=== PATIENT | female | born 1990 | race African-American/Black ===

== ENCOUNTER 2020-05-22 19:16 | Emergency (ER) | payer OTHER, MEDICAID, SELFPAY ==
[2020-05-22 19:21] VITALS: BP 148/108; PULSE 98; RESP 14; TEMP 36.1; O2SAT 100
--- NOTE | 2020-05-22 20:43 | ED.WOUNDLAC ---
HPI - Wound/Laceration General Chief Complaint: Wound/Laceration Stated Complaint: right big toe wound Time Seen by Provider: 05/22/20 19:28 Source: patient Mode of arrival: ambulatory Limitations: no limitations History of Present Illness HPI narrative: Patient is a 29 year old female who presents complaining of right great toe pain. She reports having pedicure last week and increased pain. She reports green drainage over the weekend. She denies all other complaints. She denies significant medical history. Related Data Home Medications Medication Instructions Recorded Confirmed nitrofurantoin monohyd/m-cryst 100 mg PO 05/22/20 Allergies Allergy/AdvReac Type Severity Reaction Status Date / Time No Known Allergies Allergy Mild Unverified 04/23/08 09:57 Review of Systems Review of Systems: Narrative: CONSTITUTIONAL: Denies fever, chills, or sweats. EYES: Denies visual changes, redness, or discharge. ENT: Denies rhinorrhea, congestion, sore throat, or otalgia. CARDIOVASCULAR: Denies chest pain, palpitations, or edema. RESPIRATORY: Denies cough or dyspnea. GASTROINTESTINAL: Denies abdominal pain, nausea, vomiting, or diarrhea. GENITOURINARY: Denies dysuria or hematuria. SKIN: Pain and swelling to right great toe MUSCULOSKELETAL: Denies back pain, joint pain, or myalgia. NEUROLOGIC: Denies headache, numbness, dizziness, or weakness. PSYCHIATRIC: Denies anxiety or depression. [facility] Past Medical History Medical History (Updated 05/22/20 @ 20:49 by COCO Horowitz) No significant past medical history Surgical History Surgical History (Updated 05/22/20 @ 20:49 by COCO Horowitz) No significant past surgical history Family History Family History (Updated 05/22/20 @ 20:49 by COCO Horowitz) Other No significant family history Social History Social History (Updated 05/22/20 @ 20:50 by COCO Horowitz) Smoking status: Never smoker Alcohol intake: never Substance use: never Living arrangements: with family Gender identity (if verbalized by the patient): Female Comments At the time of signature, I have reviewed and agree with nursing past medical, surgical, social, and family history unless otherwise noted. Please see nursing chart for further information. There is no relevant family history pertinent to the presenting complaint. Exam Narrative: Exam Narrative: GENERAL: Well-appearing, well-nourished, and in no acute distress. HEAD: Normocephalic, atraumatic. EYES: EOMI. No redness or drainage. Conjunctiva are normal. ENT: Mucous membranes pink and moist. CHEST: No respiratory distress. HEART: Regular rate and rhythm. EXTREMITIES: Normal range of motion. No edema. SKIN: Paronychia of the right great NEURO: No focal deficits. Alert and oriented x3. Gait steady. PSYCH: Normal affect. No signs of depression or anxiety. Course Vital Signs Vital signs: Vital Signs Temperature 36.1 C L 05/22/20 19:21 Pulse Rate 98 05/22/20 19:21 Respiratory Rate 14 05/22/20 19:21 Blood Pressure 148/108 H 05/22/20 19:21 Pulse Oximetry 100 05/22/20 19:21 Temperature 36.1 C L 05/22/20 19:21 Pulse Rate 98 05/22/20 19:21 Respiratory Rate 14 05/22/20 19:21 Blood Pressure 148/108 H 05/22/20 19:21 Pulse Oximetry 100 05/22/20 19:21 Reviewed-patient is informed that they may have pre-hypertension or hypertension based on a blood pressure reading. I recommend the patient call the primary care provider listed on their discharge instructions or a physician of their choice this week to arrange follow-up for further evaluation of possible pre-hypertension or hypertension. MDM - Wound/Laceration MDM Narrative Medical decision making narrative: Patient has paronychia of the right great toe, I&D completed with 18-gauge needle. Discussed topical antibiotics as patient is currently breast-feeding and soaking in warm water. Patient is stable for discharge wi
[2020-05-22 20:48] VITALS: BP 150/93; PULSE 98; RESP 18; O2SAT 100
== END 2020-05-22 20:58 | disposition home or self-care (01) ==
PROVIDERS: Emergency Provider Nurse Practitioner; PCP Obstetrics & Gynecology
DX: L03.031 Cellulitis of right toe (principal); R03.0 Elevated blood-pressure reading, without diagnosis of hypertension
CPT/HCPCS: 10060; 99283

== ENCOUNTER 2020-07-27 23:45 | Emergency (ER) | payer OTHER, MEDICAID, SELFPAY ==
[2020-07-27 23:47] VITALS: BP 137/91; PULSE 94; RESP 16; TEMP 36.5; O2SAT 100
--- NOTE | 2020-07-28 00:45 | ED.EAR ---
HPI - Ear Problem General Chief complaint: Ear Stated complaint: pain/blood in right ear Time Seen by Provider: 07/28/20 00:24 History of Present Illness HPI Narrative: Patient is a 29-year-old female who presents ER with ear pressure. Bilateral but right greater than left. Noticed some blood coming out of her ear on the right side tonight. No dizziness or tinnitus. 2 days ago she had had a lot of pressure where she could not hear in her right ear but that has improved. Symptoms worsened after getting off an airplane from [place]. Patient reports she has put some Q-tips in her ear. No history of cerumen impaction. Related Data Home Medications Medication Instructions Recorded Confirmed nitrofurantoin monohyd/m-cryst 100 mg PO 05/22/20 Allergies Allergy/AdvReac Type Severity Reaction Status Date / Time prednisone Allergy Swelling Verified 07/27/20 23:47 of Lip/Tongue/Throat Review of Systems Constitutional: Constitutional: Denies chills and Denies fever(s) ENT: Denies nasal congestion and Denies sore throat Comments: Ear pressure, blood from right ear canal Respiratory: Respiratory: Denies cough and Denies dyspnea PMFSH Past Medical History Medical History (Updated 07/28/20 @ 00:50 by Ben Anaya MD) No significant past medical history Surgical History Surgical History (Updated 05/22/20 @ 20:49 by COCO Horowitz) No significant past surgical history Family History Family History (Updated 05/22/20 @ 20:49 by COCO Horowitz) Other No significant family history Social History Social History (Updated 05/22/20 @ 20:50 by COCO Horowitz) Smoking status: Never smoker Alcohol intake: never Substance use: never Gender identity (if verbalized by the patient): Female Exam Narrative: Exam Narrative: GENERAL: Well-appearing, well-nourished, and in no acute distress. HEAD: Normocephalic, atraumatic. ENT: Mucous membranes moist. TMs normal bilaterally. Right ear canal over the anterior wall has an area where there was recent bleeding but no pustules or vesicles or active bleeding at this time. EXTREMITIES: Normal range of motion. No edema. NEURO: Alert and oriented x3. PSYCH: Normal mood and affect. Course Course Emergency Course: Recommend seasonal allergy medication to help with ear pressure as she may have some swelling for eustachian tubes not allowing for pressure to be released. Will give a dose of meclizine here to try to help as well. Vital Signs Vital signs: Vital Signs Temperature 97.7 F 07/27/20 23:47 Pulse Rate 94 07/27/20 23:47 Respiratory Rate 16 07/27/20 23:47 Blood Pressure 137/91 H 07/27/20 23:47 Pulse Oximetry 100 07/27/20 23:47 Temperature 97.7 F 07/27/20 23:47 Pulse Rate 94 07/27/20 23:47 Respiratory Rate 16 07/27/20 23:47 Blood Pressure 137/91 H 07/27/20 23:47 Pulse Oximetry 100 07/27/20 23:47 Medical Decision Making Vital Signs Vital Signs: Vital Signs Temperature 97.7 F 07/27/20 23:47 Pulse Rate 94 07/27/20 23:47 Respiratory Rate 16 07/27/20 23:47 Blood Pressure 137/91 H 07/27/20 23:47 Pulse Oximetry 100 07/27/20 23:47 Temperature 97.7 F 07/27/20 23:47 Pulse Rate 94 07/27/20 23:47 Respiratory Rate 16 07/27/20 23:47 Blood Pressure 137/91 H 07/27/20 23:47 Pulse Oximetry 100 07/27/20 23:47 Discharge Plan Discharge Clinical Impression: Dysfunction of eustachian tube Patient Disposition: Home, Self-Care Condition: Stable Additional Instructions: Take Zyrtec daily to help with inflammation that may be occurring around her eustachian tube. This is also helpful with seasonal allergies. Return to the ER if you have severe dizziness, you cannot keep down food or water, you develop fever over 100.4 ?F, or you have increased pain in your ear. Prescriptions: No Action nitrofurantoin monohyd/m-cryst 100 mg capsule 100 mg PO RF: 0
== END 2020-07-28 01:28 | disposition home or self-care (01) ==
PROVIDERS: Emergency Provider Emergency Medicine; PCP Obstetrics & Gynecology
DX: H69.93 Unspecified Eustachian tube disorder, bilateral (principal)
CPT/HCPCS: 99281

== ENCOUNTER 2021-06-05 20:09 | Emergency (ER) | payer OTHER, MEDICAID, SELFPAY ==
[2021-06-05] VITALS (25 sets, daily range): BP systolic 105–121; BP diastolic 75–104; PULSE 100; RESP 19; TEMP 36.6; O2SAT 98–100
--- NOTE | ~2021-06-05 | CT_ITS ---
EXAMINATION: CT abdomen pelvis w con DATE: 06/05/2021 22:30 INDICATION: Pelvic and back pain 3 days post D&C TECHNIQUE: Computed tomography (CT) of the abdomen and pelvis was performed with 100 mL Omnipaque-350 intravenous contrast. Automated exposure control and iterative reconstruction technique were employe d. The dose-length product was 427.97 mGy-cm. COMPARISON: None FINDINGS: Minimal dependent atelectasis in the left lower lobe. Heart size is normal. No pericardial or pleural effusion. Focal hepatic steatosis at the ligamentum teres. Gallbladder, spleen, pancreas, bilateral adrenal glands and kidneys are normal. Bladder is normal. Anteverted uterus is unremarkable 6 mm thic k endometrial complex. 1.7 cm peripherally enhancing likely corpus luteum cyst at the right ovary. Le ft adnexa is unremarkable. Bowels including the appendix are normal. No free intraperitoneal gas or f luid. No pathologically enlarged abdominal or pelvic lymphadenopathy. Bones are unremarkable. IMPRESSION: 1. No acute intra-abdominal/pelvic process. Reviewed, dictated and finalized at location [facility].
--- NOTE | 2021-06-05 20:46 | ED.ABDPAIN ---
HPI - Abdominal Pain General Chief Complaint: Abdominal Pain <Herber Ngo MD - Last Filed: 06/05/21 21:39> Stated Complaint: n/v, pelvic pain <Herber Ngo MD - Last Filed: 06/05/21 21:39> Time Seen by Provider: 06/05/21 20:45 <Herber Ngo MD - Last Filed: 06/05/21 21:39> Source: patient <Herber Ngo MD - Last Filed: 06/05/21 21:39> Mode of arrival: ambulatory <Herber Ngo MD - Last Filed: 06/05/21 21:39> Limitations: no limitations <Herber Ngo MD - Last Filed: 06/05/21 21:39> History of Present Illness HPI narrative: Patient is 30-year-old -[place] female status post D&C for 4 days ago at [facility], 6-week old . Patient is 8 para 6 2. Patient presents with pain and spasm at the pelvic floor started yesterday associated with nausea and vomiting at least 5 times so far. She denies any fever, chills, diarrhea, constipation, vaginal bleeding or discharge <Herber Ngo MD - Last Filed: 06/05/21 21:39> Related Data Home Medications: Home Medications Medication Instructions Recorded Confirmed ibuprofen 06/05/21 <Herber Ngo MD - Last Filed: 06/05/21 21:39> Allergies/Adverse Reactions: Allergies Allergy/AdvReac Type Severity Reaction Status Date / Time prednisone Allergy Swelling Verified 06/05/21 20:20 of Lip/Tongue/Throat <Herber Ngo MD - Last Filed: 06/05/21 21:39> Review of Systems Review of Systems: All systems reviewed & are unremarkable except as noted in HPI and below <Herber Ngo MD - Last Filed: 06/05/21 21:39> PMFSH Past Medical History Medical History: Medical History No significant past medical history <Herber Ngo MD - Last Filed: 06/05/21 21:39> Surgical History Surgical History: Surgical History No significant past surgical history <Herber Ngo MD - Last Filed: 06/05/21 21:39> Family History Family History: Family History Other No significant family history <Herber Ngo MD - Last Filed: 06/05/21 21:39> Social History Social History: Social History Smoking status: Never smoker Alcohol intake: never Substance use: never Gender identity (if verbalized by the patient): Female <Herber Ngo MD - Last Filed: 06/05/21 21:39> Exam Narrative: The patient is awake and alert, well oriented., at the bedside Memory functions were grossly normal. Cranial nerves: Pupils were reactive to light. Extraocular movements were intact. Face is symmetric. Tongue midline. Palate elevation was normal . Neck and shoulder shrugging was also normal. Motor l examination: There was no pronator drift. Strength was grossly 5/5 in all extremities. No focal motor deficits were noted. Sensations were also well preserved. Coordination and fine finger movements, [id number] did not reveal dysmetria. Examination of the gait was deferred. <Herber Ngo MD - Last Filed: 06/05/21 21:39> Course Course Emergency Course: Stable <Herber Ngo MD - Last Filed: 06/05/21 21:39> Reevaluation(s) Reevaluation #1: Received signout on the patient pending CT imaging. CT was clear unremarkable for acute process on reevaluation patient was resting comfortably sleeping easily awoken. Patient is follow-up with her [facility] team early next week patient is comfortable outpatient plan. <Gabriel Bray MD - Last Filed: 06/06/21 03:14> Date: 06/06/21 <Gabriel Bray MD - Last Filed: 06/06/21 03:14> Time: 00:15 <Gabriel Bray MD - Last Filed: 06/06/21 03:14> Vital Signs Vital signs: Vital Signs Temperature 36.6 C 06/05/21 20:16 Pulse Rate 100 06/05/21 20:16 Respiratory Rate 19 06/05/21 2
[2021-06-05] MEDS: SODIUM CHLORIDE 0.9% IV 1,000 ML 999 ML IV CONT (21:13)
[2021-06-05 21:21] LABS: Basophils Percent Auto 0.4 % (0.2-1.2); Eosinophils Absolute Auto 0.1 K/mm3 (0-0.3); Eosinophils Percent Auto 1.3 % (0-4.4); Hematocrit 36.1 % (37.0-47.0); Hemoglobin 11.5 g/dL (12.0-15.0); Immature Granulocyte Absolute 0.03 K/mm3 (0.00-0.031); Immature Granulocyte Percent A 0.5 % (0-0.5); Lymphocytes Absolute Auto 1.45 K/mm3 (0.9-3.2); Lymphocytes Percent Auto 26.1 % (18.3-44.2); Mean Corpuscular HGB Conc 31.9 g/dl (32-36); Mean Corpuscular Volume 91.2 fl (80-100); Mean Platelet Volume 9.7 fl (7.4-10.4); Monocytes Absolute Auto 0.4 K/mm3 (0.1-0.6); Monocytes Percent Auto 6.7 % (2.6-8.5); Neutrophils Absolute Auto 3.6 K/mm3 (1.3-6.7); Platelet Count Result 255 k/mm3 (150-375); Red Blood Count 3.96 M/mm3 (4.2-5.4); Red Cell Distribution Width 12.5 % (11.5-14.5); White Blood Count 5.6 K/mm3 (4.5-10.0)
[2021-06-05 21:39] LABS: Alanine Aminotransferase 13 U/L (4-35); Alkaline Phosphatase 81 U/L (38-126); Anion Gap 8 mmol/L (8-16); Aspartate Amino Transferase 24 U/L (14-36); Bilirubin,Total 0.6 mg/dL (0.2-1.3); Blood Urea Nitrogen 11 mg/dL (7-17); Calcium 7.9 mg/dL (8.4-10.2); Carbon Dioxide 23 mmol/L (22-30); Chloride 105 mmol/L (98-107); Estimated Glomerular Filt Rate > 60; Glucose 89 mg/dL (65-110); Lipase 120 U/L (23-300); Potassium 3.5 mmol/L (3.4-5.0); Sodium 136 mmol/L (137-145)
[2021-06-05] MEDS: MORPHINE SULFATE (*CRX) 4 MG/ML INJ IV PUSH (21:55)
[2021-06-05] MEDS: ONDANSETRON INJ 4 MG/2 ML VIAL IV PUSH ×2 (21:55)
[2021-06-06 00:31] VITALS: BP 100/73; PULSE 97; RESP 18; O2SAT 98
[2021-06-06 03:56] LABS: Pregnancy On Board Control Positive; Urine Pregnancy Test Positive
== END 2021-06-06 00:39 | disposition home or self-care (01) ==
PROVIDERS: Emergency Medicine; Emergency Provider Emergency Medicine; PCP Obstetrics & Gynecology
DX: R10.2 Pelvic and perineal pain (principal); Z98.890 Other specified postprocedural states
CPT/HCPCS: 36415; 74177; 80053; 81025; 83690; 85025; 96361; 96374; 96375; 99284; J2270; J2405; J7030; Q9967

== ENCOUNTER 2021-08-27 11:13 | Emergency (ER) | payer OTHER, MEDICAID, SELFPAY ==
--- NOTE | 2021-08-27 11:20 | ED.URI ---
HPI - URI/Sore Throat General Chief Complaint: Upper Respiratory Infection Stated Complaint: cough,sore throat Time Seen by Provider: 08/27/21 11:20 Source: patient Mode of arrival: ambulatory Limitations: no limitations History of Present Illness HPI Narrative: Ms. Lorenzana is a 31-year-old female patient presenting to the clinic today with complaints of cough and sore throat x1 day. She reports her 2 sons have been sick for approximately 5 to 6 days with cough, congestion, low-grade fever, and sore throat. Is concerned that she has gotten sick from them. Related Data Home Medications Medication Instructions Recorded Confirmed ibuprofen 600 mg tablet 06/05/21 Allergies Allergy/AdvReac Type Severity Reaction Status Date / Time prednisone Allergy Swelling Verified 06/05/21 20:20 of Lip/Tongue/Throat Review of Systems Review of Systems: Pertinent positives per HPI. Patient denies any fever, chills, rash, headache, visual changes, dizziness, shortness of breath, chest pain, palpitations, nausea, vomiting, diarrhea, constipation, abdominal pain, or any urinary issues. [facility] Past Medical History Medical History No significant past medical history Surgical History Surgical History No significant past surgical history Family History Family History Other No significant family history Social History Social History Smoking status: Never smoker Alcohol intake: never Substance use: never Gender identity (if verbalized by the patient): Female Comments At the time of my signature, I reviewed and agree with the nursing past medical, surgical, social, and family history. There is no relevant family history pertinent to the patient complaint. Exam Narrative: General: Well-developed, overweight, in no apparent distress Head: Normocephalic, atraumatic Eyes: Pupils equally round and reactive to light bilaterally, EOM intact, sclera and conjunctive clear, no discharge, lids normal Ears: TMs intact and clear, ear canals clear, no drainage, grossly hearing normal. Nose: Nares patent, clear nasal discharge, moderate postnasal drip inflammation, no sinus tenderness. Mouth: Oropharynx without lesions or masses, good dentition, MMM. Neck: Supple, trachea midline, no enlargement of anterior or posterior cervical nodes, no thyroid masses or goiter palpable. Cardio: Regular rate and rhythm, s1 and s2 normal, no murmur appreciated. Resp: Clear to auscultation bilaterally anteriorly and posteriorly, no rhonchi, rales, wheezing or rubs Course Course Emergency Course: Portions of this record may have been created with voice recognition software. Level of Care: Express Care Visit Vital Signs Vital signs: Vital signs reviewed MDM - URI/Sore Throat MDM Narrative Medical decision making narrative: At the time of visit patient is resting comfortably on the exam table. I suspect the patient has upper respiratory infection and discussed testing for COVID here in 2 days. Supportive measures were discussed with the patient she voiced understanding of discharge instructions. I will give a prescription for some Decadron to help with congestion and inflammation. Differential Diagnosis Differential diagnosis: Likely upper respiratory infection, sinusitis, viral infection, bronchitis, influenza, pharyngitis and other (COVID) Discharge Plan Discharge Clinical Impression: URI (upper respiratory infection) Qualifiers: URI type: unspecified viral URI Qualified Code(s): J06.9 - Acute upper respiratory infection, unspecified Patient Disposition: Home, Self-Care Condition: Stable Instructions: Antibiotic Form Additional Instructions: Take prescription medic
[2021-08-27 11:43] VITALS: BP 120/82; PULSE 106; RESP 16; TEMP 37.3; O2SAT 100
== END 2021-08-27 12:13 | disposition home or self-care (01) ==
PROVIDERS: Emergency Provider Nurse Practitioner Family; PCP Obstetrics & Gynecology
DX: J06.9 Acute upper respiratory infection, unspecified (principal)
CPT/HCPCS: 99213; G0463

== ENCOUNTER 2021-09-12 21:09 | Emergency (ER) | payer OTHER, MEDICAID, SELFPAY ==
--- NOTE | ~2021-09-12 | CT_ITS ---
EXAMINATION: CT abdomen pelvis wo con DATE: 09/12/2021 23:19 INDICATION: Right lower quadrant abdominal pain, right flank pain TECHNIQUE: Computed tomography (CT) of the abdomen and pelvis was performed without intravenous contr ast. Automated exposure control and iterative reconstruction technique were employed. Exam dose: 418 .09 mGy-cm total exam DLP. COMPARISON: 06/05/2021 CT abdomen pelvis with IV contrast material FINDINGS: The lung bases are clear. Normal heart size. No pericardial or pleural effusion. The liver, gallbladder, bile ducts, spleen, pancreas, pancreatic duct, and adrenal glands and kidneys are unremarkable, except for possible subtle punctate nonobstructing right renal calculus. No ureteral calculus or hydroureteronephrosis. The urinary bladder, uterus and adnexal areas are unre markable. Slight free fluid in the posterior cul-de-sac, which is likely physiologic. Normal appendix. No bowel obstruction or intraperitoneal free air. Small fat-containing umbilical hernia. Included skeletal structures are unremarkable. IMPRESSION: Very subtle pinpoint nonobstructing right renal calculus is suggested Normal appendix Reviewed, dictated and finalized at [facility]. Reviewed, dictated and finalized at location [facility]. IMPRESSION: Very subtle pinpoint nonobstructing right renal calculus is sugges keily Normal appendix
[2021-09-12 21:11] VITALS: BP 139/94; PULSE 90; RESP 16; TEMP 36.8; O2SAT 100
--- NOTE | 2021-09-12 21:34 | ED.FEMALEGU ---
HPI - Female Genitourinary General Chief complaint: Urogenital-Female Stated complaint: chills, urinary frequency, flank pain Time Seen by Provider: 09/12/21 21:16 History of Present Illness HPI Narrative: 31-year-old female presents to the emergency room for evaluation of right pelvic pain. Patient states the pain has been present all day today and is accompanied with occasional nausea. Last menstrual period was 2 weeks ago. Denies any vomiting diarrhea or constipation. Denies fever. States she has a mild dysuria. Also reports right lower Related Data Allergies Allergy/AdvReac Type Severity Reaction Status Date / Time prednisone Allergy Swelling Verified 08/27/21 18:22 of Lip/Tongue/Throat Review of Systems Review of Systems: CONSTITUTIONAL: Denies fever, chills, or sweats. EYES: Denies visual changes, redness, or discharge. ENT: Denies rhinorrhea, congestion, sore throat, or otalgia. CARDIOVASCULAR: Denies chest pain, palpitations, or edema. RESPIRATORY: Denies cough or dyspnea. GASTROINTESTINAL: Reports right pelvic pain GENITOURINARY: Denies dysuria or hematuria. SKIN: Denies rash or itching. MUSCULOSKELETAL: Reports back pain NEUROLOGIC: Denies headache, numbness, dizziness, or weakness. PSYCHIATRIC: Denies anxiety or depression. PMFSH Past Medical History Medical History No significant past medical history Surgical History Surgical History No significant past surgical history Family History Family History Other No significant family history Social History Social History Smoking status: Never smoker Alcohol intake: never Substance use: never Gender identity (if verbalized by the patient): Female Exam Narrative: GENERAL: Well-appearing, well-nourished, no physical limitations, and in no acute distress. HEAD: Normocephalic, atraumatic. EYES: Conjunctivae normal, PERRLA and EOMI. CHEST: Clear to auscultation. No respiratory distress. No wheezes rales or rhonchi. No tenderness. HEART: Regular rate and rhythm. No murmur heard. Normal peripheral pulses. ABDOMEN: Soft, right pelvic tenderness, nondistended, normal active bowel sounds. BACK: Right CVA tenderness EXTREMITIES: Normal range of motion. No edema. No clubbing or cyanosis SKIN: Warm, dry, no rash. No noted wounds NEURO: No focal deficits. Alert and oriented x3. MAEW. CN's II-XI intact bilaterally, normal gait PSYCH: Cooperative. Normal mood and affect. Course Vital Signs Vital signs: Vital Signs Temperature 36.8 C 09/12/21 21:11 Pulse Rate 90 09/12/21 21:11 Respiratory Rate 16 09/12/21 21:11 Blood Pressure 139/94 H 09/12/21 21:11 Pulse Oximetry 100 09/12/21 21:11 Oxygen Delivery Room Air 09/12/21 21:11 Temperature 36.8 C 09/12/21 21:11 Pulse Rate 90 09/12/21 21:11 Respiratory Rate 16 09/12/21 21:11 Blood Pressure 139/94 H 09/12/21 21:11 Pulse Oximetry 100 09/12/21 21:11 Oxygen Delivery Room Air 09/12/21 21:11 MDM - Female Genitourinary Lab Data Result diagrams: 09/12/21 21:50 09/12/21 21:50 Labs: Lab Results 09/12/21 09/12/21 09/12/21 Range/Units 21:41 21:50 21:50 WBC 7.3 (4.5-10.0) K/mm3 RBC 4.01 L (4.2-5.4) M/mm3 Hgb 11.5 L (12.0-15.0) g/dL Hct 35.8 L (37.0-47.0) % MCV 89.3 (80-100) fl MCH 28.7 (26-34) pg MCHC 32.1 (32-36) g/dl RDW 12.1 (11.5-14.5) % Plt Count 355 (150-375) k/mm3 MPV 9.9 (7.4-10.4) fl Immature Gran % (Auto) 0.4 (0-0.5) % Neut % (Auto) 53.5 (45.5-73.1) % Lymph % (Auto) 36.8 (18.3-44.2) % [place] % (Auto) 7.5 (2.6-8.5) % Eos % (Auto) 1.5 (0-4.4) % Baso % (Auto) 0.3 (0.2-1.2) % Lymph # (Auto) 2.69 (0.9-3.2) K/mm
[2021-09-12 21:57] LABS: Basophils Percent Auto 0.3 % (0.2-1.2); Eosinophils Absolute Auto 0.1 K/mm3 (0-0.3); Eosinophils Percent Auto 1.5 % (0-4.4); Hematocrit 35.8 % (37.0-47.0); Hemoglobin 11.5 g/dL (12.0-15.0); Immature Granulocyte Absolute 0.03 K/mm3 (0.00-0.031); Immature Granulocyte Percent A 0.4 % (0-0.5); Lymphocytes Absolute Auto 2.69 K/mm3 (0.9-3.2); Lymphocytes Percent Auto 36.8 % (18.3-44.2); Mean Corpuscular HGB Conc 32.1 g/dl (32-36); Mean Corpuscular Hemoglobin 28.7 pg (26-34); Mean Corpuscular Volume 89.3 fl (80-100); Mean Platelet Volume 9.9 fl (7.4-10.4); Monocytes Absolute Auto 0.6 K/mm3 (0.1-0.6); Monocytes Percent Auto 7.5 % (2.6-8.5); Neutrophils Absolute Auto 3.9 K/mm3 (1.3-6.7); Neutrophils Percent Auto 53.5 % (45.5-73.1); Platelet Count Result 355 k/mm3 (150-375); Red Blood Count 4.01 M/mm3 (4.2-5.4); Red Cell Distribution Width 12.1 % (11.5-14.5); White Blood Count 7.3 K/mm3 (4.5-10.0)
[2021-09-12 22:06] LABS: Anion Gap 13 mmol/L (8-16); Blood Urea Nitrogen 8 mg/dL (7-17); Calcium 9.3 mg/dL (8.4-10.2); Carbon Dioxide 23 mmol/L (22-30); Chloride 99 mmol/L (98-107); Estimated Glomerular Filt Rate > 60; Glucose 111 mg/dL (65-110); Potassium 3.6 mmol/L (3.4-5.0); Sodium 135 mmol/L (137-145)
[2021-09-12 22:08] LABS: Appearance Urine Clear (Clear); Bilirubin Urine Negative (Negative); Blood Urine Negative (Negative); Color Urine Yellow (Yellow); Glucose Urine UA Negative (Negative); Ketones Urine Negative (Negative); Leukocyte Esterase Ur Negative LEU/UL (Negative); Nitrate Urine Negative (Negative); Protein Urine Negative (Negative); Specific Grav Ur <= 1.005 (1.001-1.035); Urobilinogen Urine 0.2 mg/dL (<2.0); pH Urine 6.5 (5.0-9.0)
[2021-09-12 22:10] LABS: Add Urine Microscopic? NO
[2021-09-12] MEDS: ONDANSETRON INJ 4 MG/2 ML VIAL IV PUSH (22:24)
[2021-09-12] MEDS: SODIUM CHLORIDE 0.9% IV 1,000 ML 999 ML IV CONT (22:24)
--- NOTE | 2021-09-13 02:02 | PC.NURSE ---
Pt was going to leave AMA, but received verbal d/c instructions by EMANUEL Stover prior to leaving.
== END 2021-09-13 01:56 | disposition home or self-care (01) ==
PROVIDERS: Emergency Provider Nurse Practitioner Family; PCP Obstetrics & Gynecology
DX: N83.209 Unspecified ovarian cyst, unspecified side (principal)
CPT/HCPCS: 36415; 74176; 80048; 81003; 81025; 85025; 96361; 96374; 99284; J2405; J7030

== ENCOUNTER 2022-03-04 22:15 | Emergency (ER) | payer OTHER, MEDICAID, SELFPAY ==
--- NOTE | ~2022-03-04 | CT_ITS ---
CT Orbits Clinical Indication: Injury Technique: Contiguous axial scans were obtained through the orbits followed by coronal and sagittal r econstructions. Dose reduction technique was used on this scan by utilizing automated exposure contro l and iterative reconstruction technique. The dose-length product (DLP) was 140.83 mGy-cm. Findings: No fractures are identified. Minimal left maxillary sinus disease noted. The remaining visu alized paranasal sinuses are clear. Intraorbital soft tissues appear normal. Impression: No fracture or intraorbital abnormality identified. Reviewed, dictated and finalized at location . [employer] [employer] Impression: No fracture or intraorbital abnormality identified.
--- NOTE | ~2022-03-04 | CT_ITS ---
Non-contrast Head CT History: Head injury Technique: Axial non-contrast imaging of the brain was performed. Dose reduction technique was used on this scan by utilizing automated exposure control and iterative reconstruction technique. The dose -length product (DLP) was 605.33 mGy-cm. Findings: There is no evidence of intracranial hemorrhage, mass lesion, or acute infarct. Brain par enchyma appears normal. The ventricles and subarachnoid spaces are normal in size. The calvarium ap pears normal. The visualized paranasal sinuses and mastoid air cells are clear. Impression: No significant abnormality seen. Reviewed, dictated and finalized at [facility]. [employer] Impression: No significant abnormality seen.
[2022-03-04 22:18] VITALS: BP 112/72; PULSE 80; RESP 14; TEMP 36.4; O2SAT 100
--- NOTE | 2022-03-04 23:56 | ED.HEATRA ---
HPI - Head Injury General Chief complaint: Head Injury Stated complaint: head injury Time Seen by Provider: 03/04/22 23:56 Source: patient Mode of arrival: ambulatory Limitations: no limitations History of Present Illness HPI Narrative: 31-year-old otherwise healthy here with the complaints of right eye pain patient states that he had Border right eye loss of vision for seconds now complaining of pain and headache. She states that she gave the vision back is able to see kong BOYLE Complaint: head injury Onset (ago): hour(s) (3) Mechanism of Injury: other (Accidental) Place: home Loss of Consciousness: no Location of injury: other (Right orbit) Quality: dull Radiation: none Other Injuries: none Associated symptoms: denies other symptoms Related Data Allergies Allergy/AdvReac Type Severity Reaction Status Date / Time prednisone Allergy Swelling Verified 08/27/21 18:22 of Lip/Tongue/Throat Review of Systems Review of Systems: All systems reviewed & are unremarkable except as noted in HPI and below Constitutional: Constitutional: Reports no additional constitutional complaints Eyes: Eyes: Reports as per HPI ENT: Reports system reviewed and no additional complaints, except as documented Cardiovascular: Cardiovascular: Reports no additional cardiovascular complaints Respiratory: Respiratory: Reports no additional respiratory complaints Gastrointestinal: Gastrointestinal: Reports no additional gastrointestinal complaints Musculoskeletal: Musculoskeletal: Reports no additional musculoskeletal complaints PMFSH Past Medical History Medical History No significant past medical history Surgical History Surgical History No significant past surgical history Family History Family History Other No significant family history Social History Social History Smoking status: Never smoker Alcohol intake: never Substance use: never Living arrangements: with family Gender identity (if verbalized by the patient): Female Exam Narrative: GENERAL: Well-appearing, well-nourished, and in no acute distress. HEAD: Normocephalic, atraumatic. EYES: PERRLA and EOMI. fundus looks normal no erythema or swelling. NECK: Supple. CHEST: Clear to auscultation. No respiratory distress. HEART: Regular rate and rhythm. No murmur heard. Normal peripheral pulses. ABDOMEN: Soft, nontender, nondistended, normal active bowel sounds. EXTREMITIES: Normal range of motion. No edema. SKIN: Warm, dry, no rash. NEURO: No focal deficits. Alert and oriented x3. PSYCH: Normal mood and affect. Course Vital Signs Vital signs: Vital Signs Temperature 36.4 C 03/04/22 22:18 Pulse Rate 80 03/04/22 22:18 Respiratory Rate 14 03/04/22 22:18 Blood Pressure 112/72 03/04/22 22:18 Pulse Oximetry 100 03/04/22 22:18 Temperature 36.4 C 03/04/22 22:18 Pulse Rate 80 03/04/22 22:18 Respiratory Rate 14 03/04/22 22:18 Blood Pressure 112/72 03/04/22 22:18 Pulse Oximetry 100 03/04/22 22:18 MDM - Head Injury MDM Narrative Medical decision making narrative: CT scan of the head and orbits were done which were unremarkable. Advised ice and Tylenol or ibuprofen for pain. Differential Diagnosis Differential diagnosis: Likely closed head injury and other (Globe rupture) Imaging Data Radiologist's impression: CT of the orbit shows mild facial contusions no fracture otherwise no acute abnormality CT of the head no acute intracranial abnormality Discharge Plan Discharge Clinical Impression: Contusion of right orbit Patient Disposition: Home, Self-Care Condition: Stable Instructions: Head Injury (ED) Additional Instructions: Take Tylenol or ibuprofen for pain, follow-up with your primar
== END 2022-03-05 00:21 | disposition home or self-care (01) ==
PROVIDERS: Emergency Provider Family Medicine; PCP Obstetrics & Gynecology
DX: S05.11XA Contusion of eyeball and orbital tissues, right eye, initial encounter (principal); X58.XXXA Exposure to other specified factors, initial encounter
CPT/HCPCS: 70450; 70480; 99284

== ENCOUNTER 2022-03-30 19:14 | Emergency (ER) | payer OTHER, MEDICAID, SELFPAY ==
[2022-03-30] VITALS (7 sets, daily range): BP systolic 109–134; BP diastolic 72–90; PULSE 57–98; RESP 14–18; TEMP 36.6; O2SAT 100
[2022-03-30 19:37] LABS: Basophils Percent Auto 0.4 % (0.2-1.2); Eosinophils Absolute Auto 0.2 K/mm3 (0-0.3); Hematocrit 36.6 % (37.0-47.0); Immature Granulocyte Absolute 0.04 K/mm3 (0.00-0.031); Immature Granulocyte Percent A 0.5 % (0-0.5); Lymphocytes Absolute Auto 2.94 K/mm3 (0.9-3.2); Lymphocytes Percent Auto 35.2 % (18.3-44.2); Mean Corpuscular HGB Conc 32.8 g/dl (32-36); Mean Corpuscular Hemoglobin 29.3 pg (26-34); Mean Corpuscular Volume 89.3 fl (80-100); Mean Platelet Volume 9.5 fl (7.4-10.4); Monocytes Absolute Auto 0.6 K/mm3 (0.1-0.6); Monocytes Percent Auto 7.2 % (2.6-8.5); Neutrophils Absolute Auto 4.6 K/mm3 (1.3-6.7); Neutrophils Percent Auto 54.7 % (45.5-73.1); Platelet Count Result 322 k/mm3 (150-375); Red Cell Distribution Width 12.5 % (11.5-14.5); White Blood Count 8.4 K/mm3 (4.5-10.0)
[2022-03-30 19:46] LABS: Appearance Urine Clear (Clear); Bilirubin Urine Negative (Negative); Blood Urine Negative (Negative); Color Urine Light Yellow (Yellow); Glucose Urine UA Negative (Negative); Ketones Urine Negative (Negative); Leukocyte Esterase Ur Negative LEU/UL (Negative); Nitrate Urine Negative (Negative); Protein Urine Negative (Negative); Specific Grav Ur <= 1.005 (1.001-1.035); Urobilinogen Urine 0.2 mg/dL (<2.0); pH Urine 6.5 (5.0-9.0)
[2022-03-30 19:49] LABS: Mucus Urine Rare /lpf; RBC Urine 0-2 /hpf (0-2); Squamous Epithelial Cell Urine Rare /hpf (Few); WBC Urine 0-3 /hpf
[2022-03-30 19:51] LABS: Add Urine Microscopic? NO
[2022-03-30 19:52] LABS: Alanine Aminotransferase 21 U/L (6-35); Albumin Level 4.7 g/dL (3.5-5.1); Alkaline Phosphatase 89 U/L (38-126); Anion Gap 8 mmol/L (8-16); Aspartate Amino Transferase 34 U/L (14-36); Bilirubin,Total 0.5 mg/dL (0.2-1.3); Blood Urea Nitrogen 8 mg/dL (7-17); Calcium 8.8 mg/dL (8.4-10.2); Carbon Dioxide 26 mmol/L (22-30); Chloride 104 mmol/L (98-107); Estimated Glomerular Filt Rate > 60; Glucose 93 mg/dL (65-110); Potassium 3.4 mmol/L (3.4-5.0); Sodium 138 mmol/L (137-145)
--- NOTE | 2022-03-30 22:17 | ED.DIZZY ---
HPI - Dizziness General Chief Complaint: Dizziness Stated Complaint: dizziness Time Seen by Provider: 03/30/22 21:51 History of Present Illness HPI Narrative: Patient is a 31-year-old female here for evaluation of lightheadedness over the past week. Patient states that she has had positional lightheadedness but is occasionally lightheaded when she is laying down at rest. She states that she has had intermittent [id number] sensation in her hands over the past week as well. States that she has not ate or drink very well over the past week. No visual changes, fevers, chills, nausea, vomiting, diarrhea, vaginal bleeding. Related Data Allergies Allergy/AdvReac Type Severity Reaction Status Date / Time prednisone Allergy Swelling Verified 03/30/22 21:58 of Lip/Tongue/Throat Review of Systems Review of Systems: Gen: Reports lightheadedness Eyes: Denies eye pain or visual change ENT: Denies congestion Respiratory: Denies shortness of breath or cough CV: Denies chest pain or palpitations GI: Denies abdominal pain nausea, emesis or diarrhea : denies burning, urgency, frequency or hematuria Musculoskeletal: Denies back pain or muscle pain Neuro: Denies numbness, tingling, weakness or focal weakness Skin: Denies rash Except as documented, all other systems reviewed and negative PMFSH Past Medical History Medical History No significant past medical history Surgical History Surgical History No significant past surgical history Family History Family History Other No significant family history Social History Social History Smoking status: Never smoker Alcohol intake: never Substance use: never Living arrangements: with family Gender identity (if verbalized by the patient): Female Exam Narrative: APPEARANCE: Well appearing, no pain in distress, well-nourished. Head: Normocephalic and atraumatic. EYES: PERRLA/EOMI, conjunctivae clear NOSE: No nasal drainage EARS: External ear normal in appearance THROAT: Oropharynx is clear. Mucous membranes are moist. NECK: Supple. No adenopathy, no masses. RESPIRATORY: Airway patent, respirations nonlabored. Clear to auscultation bilaterally, no rales, rhonchi, wheezing. CARDIOVASCULAR: Regular rate and rhythm without murmurs, rubs, or gallops. ABDOMINAL: Normoactive bowel sounds. Soft, nontender, nondistended. No rebound tenderness or guarding. MUSCULOSKELETAL: Extremities are warm and well-perfused. Moves all extremities well. No edema. NEURO: Cranial nerves II through XII intact. No weakness in the extremities. Normal gait. Normal speech. No focal neurologic deficits. SKIN: Skin is warm and dry. No rashes. PSYCHIATRIC: Normal affect/mood. Course Vital Signs Vital signs: Vital Signs Temperature 97.9 F 03/30/22 19:19 Pulse Rate 98 03/30/22 19:19 Respiratory Rate 18 03/30/22 19:19 Blood Pressure 134/89 03/30/22 19:19 Pulse Oximetry 100 03/30/22 19:19 Oxygen Delivery Room Air 03/30/22 19:19 Temperature 97.9 F 03/30/22 19:19 Pulse Rate 57 L 03/30/22 23:34 Respiratory Rate 14 03/30/22 23:34 Blood Pressure 127/90 03/30/22 23:34 Pulse Oximetry 100 03/30/22 23:34 Oxygen Delivery Room Air 03/30/22 21:56 MDM - Dizziness MDM Narrative Medical decision making narrative: 31-year-old female here for evaluation of lightheadedness over the past week with pins and needle sensation in her hands. She is nontoxic in appearance and has normal vital signs. Neurologic exam is reassuring; heart lungs are clear to auscultation. Orthostats are negative. Basic labs are unremarkable. UA is normal. She is not having chest pain but her EKG is nonischemic, not suggestive of arrhythmia or other organi
--- NOTE | 2022-03-30 22:22 | ECG_ITS ---
Measurements Intervals [place] Rate: 79 P: 48 [place]: 156 QRS: 12 QRSD: 85 T: 36 QT: 384 QTc: 441 Interpretive Statements SINUS RHYTHM MINIMAL VOLTAGE CRITERIA FOR LVH, CONSIDER NORMAL VARIANT [MEETS CRITERIA IN ONE OF: R(aVL), S(V1), R(V5), R(V5/V6)+S(V1)] NONSPECIFIC T-WAVE ABNORMALITY ABNORMAL ECG NO PREVIOUS ECG AVAILABLE FOR COMPARISON Electronically Signed On 03-31-2022 13:39:57 MANAGER HI by Max Boateng M.D.
[2022-03-30] MEDS: MECLIZINE HCL 25 MG TABLET PO (22:24)
[2022-03-30] MEDS: SODIUM CHLORIDE 0.9% IV 1,000 ML 999 ML IV CONT (22:24)
== END 2022-03-30 23:40 | disposition home or self-care (01) ==
PROVIDERS: Emergency Medicine; Emergency Provider Physician Assistant; PCP Obstetrics & Gynecology
DX: R42 Dizziness and giddiness (principal); R94.31 Abnormal electrocardiogram [ECG] [EKG]
CPT/HCPCS: 36415; 80053; 81003; 81025; 85025; 93005; 96360; 99283; A9270; J7030

== ENCOUNTER 2023-10-10 10:43 | Emergency (ER) | payer OTHER, MEDICAID, SELFPAY ==
[2023-10-10 10:52] VITALS: BP 118/81; PULSE 128; RESP 16; TEMP 37.1; O2SAT 100
--- NOTE | 2023-10-10 11:03 | ED.URI ---
HPI - URI/Sore Throat General Chief Complaint: Upper Respiratory Infection Stated Complaint: Congestion Time Seen by Provider: 10/10/23 11:00 Source: patient Mode of arrival: ambulatory Limitations: no limitations History of Present Illness HPI Narrative: Marian is a 33-year-old female patient presenting to the clinic today with complaints nasal congestion and postnasal drip that started last night. She denies any known fever, chills, body aches. States her throat does feel slightly scratchy. History of frequent strep MD elicited complaint: sore throat and nasal congestion Related Data Allergies Allergy/AdvReac Type Severity Reaction Status Date / Time prednisone Allergy Swelling Verified 03/30/22 21:58 of Lip/Tongue/Throat Review of Systems Review of Systems: Pertinent positives per HPI. Patient denies any fever, chills, rash, headache, visual changes, dizziness, cough, shortness of breath, chest pain, palpitations, nausea, vomiting, diarrhea, constipation, abdominal pain, or any urinary issues. PMFSH Past Medical History Medical History No significant past medical history Surgical History Surgical History No significant past surgical history Family History Family History Other No significant family history Social History Social History Smoking status: Never smoker Alcohol intake: never Substance use: never Living arrangements: with family Gender identity (if verbalized by the patient): Female Comments At the time of my signature, I reviewed and agree with the nursing past medical, surgical, social, and family history. There is no relevant family history pertinent to the patient complaint. Exam Narrative: General: Well-developed, well nourished, in no apparent distress Head: Normocephalic, atraumatic Eyes: Pupils equally round and reactive to light bilaterally, EOM intact, sclera and conjunctive clear, no discharge, lids normal Ears: TMs intact and clear, ear canals clear, no drainage, grossly hearing normal. Nose: Nares patent, clear nasal discharge, severe inflammation to the left turbinates moderate inflammation to the right turbinates, no sinus tenderness. Mouth: Oral pharynx without lesions or masses, good dentition, MMM. Postnasal Neck: Supple, trachea midline, no enlargement of anterior or posterior cervical nodes, no thyroid masses or goiter palpable. Cardio: Regular rate and rhythm, s1 and s2 normal, no murmur appreciated. Resp: Clear to auscultation bilaterally, no rhonchi, rales, wheezing or rubs Course Course Emergency Course: Portions of this record may have been created with voice recognition software. Level of Care: Express Care Visit Vital Signs Vital signs: Vital signs reviewed MDM - URI/Sore Throat MDM Narrative Medical decision making narrative: At the time of visit patient is resting comfortably on the exam table. Patient appears to be nontoxic. Labs: COVID, influenza, and strep test were performed. Influenza and strep testing was negative. COVID testing was positive. Plan: I suspect patient has COVID virus. Supportive measures were discussed with the patient and they voiced understanding discharge instructions and agrees to treatment plan. Return precautions reviewed Differential Diagnosis Differential diagnosis: Likely upper respiratory infection, otitis media, sinusitis, viral infection, bronchitis, influenza, pharyngitis and other (COVID) Discharge Plan Discharge Clinical Impression: COVID-19 Patient Disposition: Home, Self-Care Condition: Stable Instructions: Antibiotic Form, How to Recover from COVID-19 at Home (ED) Additional Instructions: COVID testing was negative in the clinic t
[2023-10-10 11:11] LABS: EDINFLUASCREEN Negative; EDINFLUBSCREEN Negative; EDSTREPNEGPOS1 Negative
== END 2023-10-10 11:52 | disposition home or self-care (01) ==
PROVIDERS: Emergency Provider Nurse Practitioner Family; PCP Pediatrics
DX: U07.1 COVID-19 (principal)
CPT/HCPCS: 87081; 87426; 87804; 87880; 99213; G0463

== ENCOUNTER 2023-11-23 14:50 | Emergency (ER) | payer OTHER, MEDICAID, SELFPAY ==
[2023-11-23 15:03] VITALS: BP 109/67; PULSE 107; RESP 16; TEMP 36.4; O2SAT 100
--- NOTE | 2023-11-23 15:10 | ED.FALL ---
HPI - Fall General Chief Complaint: Fall Stated Complaint: fall Time Seen by Provider: 11/23/23 15:11 Source: patient, family, RN notes reviewed and old records reviewed Mode of arrival: ambulatory Limitations: no limitations History of Present Illness HPI Narrative: 33 year old female accompanied by and 2 children present to express care with complaints of injury to her back from fall which occurred today this morning when she slipped on concrete steps in garage and fell onto her right thoracic back area and lumbar back. Patient states she hit her head with no LOC denies any headache or any feelings of dizziness or nausea. Patient is 29 weeks an is followed by [facility] due to previous early labor. Patient reports that she has noted active movement of baby and denies any vaginal bleeding or any pain to abdomen..Patient has applied ice to thoracic and lumbar back. MD complaint: fall Onset (ago): day(s) (today this morning) Fall from: standing Place fall occurred: home Loss of consciousness: none Symptoms prior to fall: none Location of injury: other (right thoracic back under bra area and to right lumbar back) Severity: moderate Severity scale (1-10): 6 Quality: aching Related Data Allergies Allergy/AdvReac Type Severity Reaction Status Date / Time prednisone Allergy Swelling Verified 11/23/23 16:14 of Lip/Tongue/Throat Review of Systems Review of Systems: CONSTITUTIONAL: Denies fever, chills, or sweats. EYES: Denies visual changes, redness, or discharge. ENT: Denies rhinorrhea, congestion, sore throat, or otalgia. CARDIOVASCULAR: Denies chest pain, palpitations, or edema. RESPIRATORY: Denies cough or dyspnea. GASTROINTESTINAL: Denies abdominal pain, nausea, vomiting, or diarrhea. GENITOURINARY: Denies dysuria or hematuria.denies any vaginal bleeding SKIN: Denies rash or itching. MUSCULOSKELETAL: Reports back pain to right thoracic back area,below bra area and to lumbar back on right side or myalgia. NEUROLOGIC: Denies headache, numbness, or weakness. PSYCHIATRIC: Reports history of anxiety or depression. All systems reviewed & are unremarkable except as noted in HPI and below PMFSH Past Medical History Medical History (Updated 11/25/23 @ 12:07 by Arielle Del Rosario NP) Anxiety No significant past medical history UTI (urinary tract infection) Surgical History Surgical History No significant past surgical history Family History Family History Other No significant family history Social History Social History Smoking status: Never smoker Alcohol intake: never Substance use: never Living arrangements: with family Gender identity (if verbalized by the patient): Female Comments At time of signature, agree with nursing past medical, surgical, social and family history. There is no relevant family history pertinent to the presenting complaint Exam Narrative: GENERAL: Well-appearing, well-nourished, and in no acute distress. HEAD: Normocephalic, atraumatic. EYES: PERRLA and EOMI. no nystagmus ENT: Nares clear, no rhinorrhea or epistaxis. Mucous membranes moist. NECK: Supple.no lymphadenopathy CHEST: Clear to auscultation. No respiratory distress. SAO2 100% on room air HEART: Regular rate and rhythm. No murmur heard. Normal peripheral pulses. ABDOMEN: Soft, nontender, nondistended, normal active bowel sounds. normal movement with heart tones 136 EXTREMITIES: Normal range of motion. No edema. discomfort to right thoracic spine area and to right lumbar back area from fall, no redness or bruising noted, no radiation of pain to legs or any tingling or numbness to legs. SKIN: Warm, dry, no rash. NEURO: No focal deficits. Alert and oriented x3. denies any headache,dizziness or any nausea,
== END 2023-11-23 16:14 | disposition home or self-care (01) ==
PROVIDERS: Emergency Provider Registered Nurse
DX: O99.891 Other specified diseases and conditions complicating pregnancy (principal); Z3A.29 29 weeks gestation of pregnancy; M54.6 Pain in thoracic spine; M54.50 Low back pain, unspecified
CPT/HCPCS: 99212; G0463

== ENCOUNTER 2023-12-24 01:19 | Emergency (ER) | payer OTHER, MEDICAID, SELFPAY ==
[2023-12-24 01:20] VITALS: BP 112/60; PULSE 88; RESP 14; TEMP 36.4; O2SAT 100
[2023-12-24 03:54] LABS: Basophils Percent Auto 0.3 % (0.2-1.2); Eosinophils Absolute Auto 0.1 K/mm3 (0-0.3); Eosinophils Percent Auto 0.9 % (0-4.4); Hematocrit 30.5 % (37.0-47.0); Hemoglobin 9.6 g/dL (12.0-15.0); Immature Granulocyte Absolute 0.19 K/mm3 (0.00-0.031); Immature Granulocyte Percent A 1.9 % (0-0.5); Lymphocytes Absolute Auto 2.03 K/mm3 (0.9-3.2); Lymphocytes Percent Auto 20.8 % (18.3-44.2); Mean Corpuscular HGB Conc 31.5 g/dl (32-36); Mean Corpuscular Hemoglobin 27.3 pg (26-34); Mean Corpuscular Volume 86.6 fl (80-100); Mean Platelet Volume 10.7 fl (7.4-10.4); Monocytes Absolute Auto 0.7 K/mm3 (0.1-0.6); Monocytes Percent Auto 7.1 % (2.6-8.5); Neutrophils Absolute Auto 6.7 K/mm3 (1.3-6.7); Platelet Count Result 185 k/mm3 (150-375); Red Blood Count 3.52 M/mm3 (4.2-5.4); Red Cell Distribution Width 17.7 % (11.5-14.5); White Blood Count 9.8 K/mm3 (4.5-10.0)
[2023-12-24 04:05] LABS: Prothrombin Time 13.7 Seconds (11.1-14.7)
[2023-12-24 04:06] LABS: Partial Thromboplastin Time 34.1 Seconds (22.3-36.8)
[2023-12-24 04:11] LABS: Alanine Aminotransferase 12 U/L (6-35); Albumin Level 3.5 g/dL (3.5-5.1); Alkaline Phosphatase 90 U/L (38-126); Anion Gap 6 mmol/L (4-12); Aspartate Amino Transferase 18 U/L (14-36); Bilirubin,Total 0.5 mg/dL (0.2-1.3); Blood Urea Nitrogen 5 mg/dL (7-17); Calcium 8.4 mg/dL (8.4-10.2); Carbon Dioxide 21 mmol/L (22-30); Chloride 106 mmol/L (98-107); Estimated Glomerular Filt Rate > 60; Glucose 96 mg/dL (65-110); Potassium 3.6 mmol/L (3.4-5.0); Sodium 133 mmol/L (137-145)
[2023-12-24 04:13] LABS: D Dimer 0.74 ug/mL (<0.48)
--- NOTE | 2023-12-24 04:20 | ED_ITS ---
HPI - General Adult General Chief complaint: Extremity Problem,Nontraumatic Stated complaint: swelling and pain in my L leg Time Seen by Provider: 12/24/23 03:13 History of Present Illness HPI narrative: patient 33-year-old female 33 weeks presents emergency department chief complaint of left leg pain and slight swelling. Patient reports started having pain in the left calf this evening reports she was concerned for possible blood clot. Patient denies chest pain denies shortness of breath Related Data Allergies Allergy/AdvReac Type Severity Reaction Status Date / Time prednisone Allergy Swelling Verified 11/23/23 16:14 of Lip/Tongue/Throat Review of Systems Review of Systems: A 10 system review of systems was completed on the patient and is negative except for what is stated in the HPI. Nursing and ancillary documentation was reviewed. PMFSH Past Medical History Medical History Anxiety No significant past medical history UTI (urinary tract infection) Surgical History Surgical History No significant past surgical history Family History Family History Other No significant family history Social History Social History Smoking status: Never smoker Alcohol intake: never Substance use: never Living arrangements: with family Gender identity (if verbalized by the patient): Female Exam Narrative: GENERAL: Well-appearing, well-nourished, and in no acute distress. HEAD: Normocephalic, atraumatic. EYES: PERRLA and EOMI. ENT: Nares clear, no rhinorrhea or epistaxis. Mucous membranes moist. NECK: Supple. CHEST: Clear to auscultation. No respiratory distress. HEART: Regular rate and rhythm. No murmur heard. Normal peripheral pulses. ABDOMEN: Soft, nontender, nondistended, normal active bowel sounds. EXTREMITIES: Normal range of motion. No edema. tenderness to palpation in the left calf SKIN: Warm, dry, no rash. NEURO: No focal deficits. Alert and oriented x3. PSYCH: Normal mood and affect. Course Vital Signs Vital signs: Vital Signs Temperature 36.4 C 12/24/23 01:20 Pulse Rate 88 12/24/23 01:20 Respiratory Rate 14 12/24/23 01:20 Blood Pressure 112/60 12/24/23 01:20 Pulse Oximetry 100 12/24/23 01:20 Oxygen Delivery Room Air 12/24/23 01:20 Temperature 36.4 C 12/24/23 01:20 Pulse Rate 88 12/24/23 01:20 Respiratory Rate 14 12/24/23 01:20 Blood Pressure 112/60 12/24/23 01:20 Pulse Oximetry 100 12/24/23 01:20 Oxygen Delivery Room Air 12/24/23 01:20 Medical Decision Making MDM Narrative Medical decision making narrative: differential diagnosis includes musculoskeletal pain, DVT, peripheral edema laboratory studies were obtained on the patient showed a CBC with white count 9.8 hemoglobin was 9.6 electrolytes were within normal limits D-dimer was slightly elevated at 0.74 patient be given a dose of Lovenox in the emergency department that will provide coverage in case the patient is positive for DVT. Patient be scheduled for 7:30 a.m. ultrasound appointment. Vital Signs Vital Signs: Vital Signs Temperature 36.4 C 12/24/23 01:20 Pulse Rate 88 12/24/23 01:20 Respiratory Rate 14 12/24/23 01:20 Blood Pressure 112/60 12/24/23 01:20 Pulse Oximetry 100 12/24/23 01:20 Oxygen Delivery Room Air 12/24/23 01:20 Temperature 36.4 C 12/24/23 01:20 Pulse Rate 88 12/24/23 01:20 Respiratory Rate 14 12/24/23 01:20 Blood Pressure 112/60 12/24/23 01:20 Pulse Oximetry 100 12/24/23 01:20 Oxygen Delivery Room Air 12/24/23 01:20 Lab Data 12/24/23 03:46 12/24/23 03:46 Labs: Lab Results 12/24/23 Range/Units 03:46 WBC 9.8 (4.5-10.0) K/mm3 RBC 3.52 L (4.2-5.4) M/mm3 Hgb 9.6 L (12.0-15.0) g/dL Hct 30.5 L (37.0-47.0) % MCV 86.6 (80-100) fl MCH 27.3 (26-34) pg MCHC 31.5 L (32-36) g/dl RDW 17.7 H (11.5-14.5) % Plt Count 185 (150-375) k/mm3 MPV 10.7 H (7.4-10.4) fl Immature Gran % (Auto) 1.9 H (0-0.5) % Neut % (Auto) 69.0 (45.5-73.1) % Lymph % (Auto) 20.8 (18.3-44.2) % [place] % (Auto) 7.1 (2.6-8.5) % Eos % (Auto) 0.9 (0-4.4) % Baso % (Auto) 0.3 (0.2-1.2) % Lymph # (Auto) 2.03 (0.9-3.2) K/mm3 [place] # (Auto) 0.7 H (0.1-0.6) K/mm3 Eos # (Auto) 0.1 (0-0.3) K/mm3 Baso # (Auto) 0.0 (0.0-0.1) K/mm3 Abs Immat Gran (auto) 0.19 H (0.00-0.031) K/mm3 Absolute Neuts (auto) 6.7 (1.3-6.7) K/mm3 Absolute Nucleated RBC 0.000 (0.0-0.012) K/mm3 Nucleated RBC % 0.0 (0.0-0.2) % PT 13.7 (11.1-14.7) Seconds INR 1.0 APTT 34.1 (22.3-36.8) Seconds D-Dimer 0.74 H (<0.48) ug/mL Sodium 133 L (137-145) mmol/L Potassium 3.6 (3.4-5.0) mmol/L Chloride 106 (98-107) mmol/L Carbon Dioxide 21 L (22-30) mmol/L Anion Gap 6 (4-12) mmol/L BUN 5 L (7-17) mg/dL Creatinine 0.50 L (0.7-1.0) mg/dL Estim Creat Clear Calc Not Reportable Estimated GFR > 60 (59 - ) Glucose 96 (65-110) mg/dL Calcium 8.4 (8.4-10.2) mg/dL Total Bilirubin 0.5 (0.2-1.3) mg/dL AST 18 (14-36) U/L ALT 12 (6-35) U/L Alkaline Phosphatase 90 (38-126) U/L Total Protein 7.0 (6.3-8.2) g/dL Albumin 3.5 (3.5-5.1) g/dL Discharge Plan Discharge Clinical Impression: Left leg pain Patient Disposition: Home, Self-Care Condition: Stable Instructions: Antibiotic Form, Leg Edema (ED), Leg Pain (ED) Additional Instructions: please return to the department of radiology in the morning you of his 7:30 a.m. scheduled appointment for an ultrasound. If he develops chest pain shortness of breath or other complications please return to the emergency department immediately. Please follow-up with your OBGYN Prescriptions: No Action fluticasone propionate [Flonase Allergy Relief] 50 mcg/actuation spray,susp ension 1 spray intranasal DAILY Qty: 16 0RF Rx Instructions: administer into each nostril meclizine 25 mg tablet 25 mg PO BID PRN (Reason: dizziness) Qty: 10 0RF Follow-up/Referrals: Emanuel Caal MD [Physician] - UNKNOWN,DOCTOR [Primary Care Provider] - Time of Disposition: 04:23
== END 2023-12-24 05:08 | disposition home or self-care (01) ==
PROVIDERS: Emergency Provider Emergency Medicine
DX: O26.893 Other specified pregnancy related conditions, third trimester (principal); M79.605 Pain in left leg; Z87.440 Personal history of urinary (tract) infections; Z3A.33 33 weeks gestation of pregnancy
CPT/HCPCS: 36415; 80053; 85025; 85380; 85610; 85730; 99283

== ENCOUNTER 2024-04-21 14:08 | Emergency (ER) | payer OTHER, MEDICAID, SELFPAY ==
--- NOTE | ~2024-04-21 | CT_ITS ---
EXAMINATION: CTA chest PE protocol DATE: 04/21/2024 18:42 INDICATION: cp, right sided pain TECHNIQUE: Computed tomography angiography (CTA) of the chest was performed with 100 mL Omnipaque-350 intravenous contrast timed to evaluate the pulmonary arteries. Coronal maximum intensity projection 3D-reconstructions were created by the technologist. The dose-length product (DLP) was 746.52 mGy-cm. Automated exposure control and iterative reconstruction technique were employed. COMPARISON: X-ray chest, same date. FINDINGS: Lung parenchyma and airways: Clear. Pleura: Unremarkable. Thoracic inlet, axillae and chest wall: Unremarkable. Thoracic aorta: No significant dilation. No dissection. Mediastinum: Normal. Heart and pericardium: Normal. Coronary artery calcifications: Absent. Upper abdomen: No significant finding. Bones: No definite acute osseous finding. Mild anterior wedge deformity and endplate deformities at T 6-T9, probably physiologic/chronic. Pulmonary arteries: Study quality: Adequate. No pulmonary emboli detected. IMPRESSION: No CT evidence of acute pulmonary embolus. No acute process detected in the chest. Mild anterior wedge deformity and endplate deformities at T6-T9, likely chronic/physiologic in the ab sence of pain/tenderness or history of trauma. Reviewed, dictated and finalized at location K. IMPRESSION: No CT evidence of acute pulmonary embolus. No acute process detected in the chest. Mild anterior wedge deformity and endplate deformities at T6-T9, likely chronic /physiologic in the absence of pain/tenderness or history of trauma.
--- NOTE | ~2024-04-21 | XR_ITS ---
EXAMINATION: XR chest 2V Exam Date/Time: 04/21/2024 14:10 CDT HISTORY: LT SIDE CHEST PAIN AND RT SHOULDER PAIN RADIATING UP NECK Comparison: None. RESULT: Lines, tubes, and devices: None. Lungs and pleura: Clear. Cardiomediastinal silhouette: Unremarkable. Other: No acute osseous or upper abdominal finding. IMPRESSION: No acute cardiopulmonary process. Reviewed, dictated and finalized at location K.
--- NOTE | ~2024-04-21 | CT_ITS ---
EXAMINATION: CT cervical spine wo con DATE: 04/21/2024 18:43 INDICATION: neck/shoulder pain TECHNIQUE: Computed tomography (CT) of the cervical spine was performed without intravenous contrast. Automated exposure control and iterative reconstruction technique were employed. The dose-length pro duct was 361.86 mGy-cm. COMPARISON: None. FINDINGS: Vertebral Body Alignment: Intact. Craniocervical and atlantoaxial alignment: No significant degenerative change. Alignment intact. Osseous structures/fracture: No evidence of a lytic or blastic process in the visualized spine. No e vidence of acute fracture. Cervical soft tissues: The paraspinal soft tissues planes are maintained. Degenerative changes: No significant degenerative changes. IMPRESSION: No acute fracture or traumatic malalignment in the cervical spine. Reviewed, dictated and finalized at location K.
--- NOTE | 2024-04-21 14:10 | ECG_ITS ---
Test Date: 2024-04-21 14:14:22 Measurements Intervals [place] Rate: 104 P: 59 [place]: 144 QRS: 17 QRSD: 81 T: 74 QT: 336 QTc: 444 Interpretive Statements SINUS TACHYCARDIA VOLTAGE CRITERIA FOR LVH, CONSIDER NORMAL VARIANT NONSPECIFIC T-WAVE ABNORMALITY Electronically Signed On 04-22-2024 13:58:41 CDT by Ángel Robles D.O
--- OUTSIDE RECORDS SUMMARY | 2024-04-21 14:11 | XMS_ITS | Encounter Summary ---
Author Organization [facility] Health Address [address] [place] [address] Care Team Providers Care Manager Servicing Name Role Phone Julian Turcios DO Primary Care Provider [phone] Reason for Visit * Reason Onset Date Comments Future Appointment 09/12/2023 Pt needs to r eschedule appts Encounter Details Date Type Department Care Team (Late st Contact Info) Description 09/12/2023 Telephone [facility] - Centralized Scheduling [address] [place] [address] Leidy Valdivia MD [address] [address] Future Appointment (Pt needs to reschedule appts) Social History Tobacco Use Types Packs/Day Years Used Date Smoking Tobacco: Never Smokeless Tobacco: Never Alcohol Use Standard Drinks/Week Comments No 0 (1 standard drink = 0.6 oz pur e alcohol) Overall Financial Resource Strain (CARDIA) Answe r Date Recorded How hard is it for you to pa y for the very basics like food, housing, medical care, and heating? Not hard at all 08/22/2023 [facility] - Occupational Stress Questionnaire Answer Date Recorded Do you feel stress - tense, restless, nervous, or anxious, or unable to sleep at night because your mind is troubled all the time - these days? Not at all 08/22/2023 Hunger Vital Sign Answer Date Recorded Within the past 12 months, y ou worried that your food would run out before you got the money to buy more. Never true 08/22/19 24 Within the past 12 months, t he food you bought just didn't last and you didn't have money to get more. Never true 08/22/2023 PRAPARE - Transportation Answer Date Re corded In the past 12 months, has l ack of transportation kept you from medical appointments or from getting medications? No 08/07 In the past 12 months, has l ack of transportation kept you from meetings, work, or from getting things needed for daily living? No 08/22/2023 Housing Stability Vital Sign Answer Rodriguez e Recorded In the last 12 months, was t here a time when you were not able to pay the mortgage or rent on time? No 08/22/2023 In the last 12 months, how many places have you lived? 1 08/22/2023 In the last 12 months, was t here a time when you did not have a steady place to sleep or slept in a chcf (including now)? No 08/22/2023 Dryden Depression Scale Answer Date Recorded Dryden Depression Scale Total 9 08/22/2023 The thought of harming myself has occurred to me . Never 08/22/2023 Education Answer Date Recorded What is the highest level of school you have completed or the highest degree you have received? Bachelor's degree (e.g., BA, AB, BS) 10/10/2019 Comments Yes Sex and Gender Information Value Date Recorded Sex Assigned at Female 04/04/2022 3:36 AM BEAD FILLER Gender Identity Female 04/04/2022 3:36 AM BEAD FILLER Sexual Orientation Straight 04/04/2022 3: 36 AM BEAD FILLER documented as of this encounter Functional Status Functional Status Response Date of Assess ment Is person deaf or have serious hearing difficult y? No 01/14/2019 Is person blind or have serious difficulty seein g? No 01/14/2019 Does person have serious dif ficulty walking/climbing stairs? No 01/14/2019 Does person have difficulty dressing/bathing? No 01/14/2019 Does person have difficulty doing errands alone? No 01/14/2019 Cognitive Status Response Date of Assessm ent Does person have difficulty concentrating/remembering/making decisions? No 01/14/2019 documented as of this encounter Miscellaneous Notes * Telephone Encounter - Alysha Huff - 09/12/2023 10:50 AM CDT Current Provider: n/a Reason for Call: pt made NEW OB appt and whomever she spoke with scheduled her at [place]. Pt would like to continue being seen at [address] office. She was seen by [facility] back in 2019. I am unsure if we would see her there or general. Please assist. Patient Call Back Number: [phone] documented in this encounter Plan of Treatment Not on file documented as of this encounter Visit Diagnoses Not on filedocumented in this encounter Care Teams Manager Servicing Relationship Specialty Start Date End Date Julian Turcios DO [address] [address] PCP - General Family Medicine 05/27/20 documented as of this encounter
--- OUTSIDE RECORDS SUMMARY | 2024-04-21 14:11 | XMS_ITS | Clinical Summary ---
Author Organization [facility] Address [address] [place] [address] Care Team Providers Care Blending Tank Tender Name Role Phone Vin Sims MD Primary Care Provider [phone] Allergies No known active allergies Medications vitamin 27-1 MG Tab tablet Take 1 tablet by mouth daily. Active vitamin D3, cholecalciferol , 10 MCG (400 UNIT) tablet Take 100 Units by mouth daily. Active Ascorbic Acid (VITAMIN C) 100 MG tablet Take 750 mg by mouth daily. Active benzocaine-ment hol 20-0.5 % AerosolIndicati ons:Normal course ([facility]) Apply 1 spray topically 4 (four) times daily as needed (Perineal discomfort). 1 each 1 Active docusate sodium 100 MG capsuleIndicati ons:Normal course ([facility]) Take 1 capsule (100 mg total) by mouth 2 (two) times daily as needed for Constipation. 30 capsule 1 Active HYDROcodone-luis alberto taminophen 5-325 MG tabletIndicatio ns:Acute Pain < 7 Day Supply Take 1 tablet by mouth every 6 (six) hours as needed. Indications: Acute Pain < 7 Day Supply 10 tablet 1 Active Active Problems Problem Noted Date Diagnosed Date ([facility]) 03/08/2020 Labor and delivery indicatio n for care or intervention ([facility]) 02/24/2020 Social History Tobacco Use Types Packs/Day Years Used Date Smoking Tobacco: Never Smokeless Tobacco: Never Alcohol Use Standard Drinks/Week Comments Not Currently 0 (1 standard drink = 0.6 oz pur e alcohol) Humiliation, Afraid, Rape, and Kick questionnair e Answer Date Recorded Within the last year, have y ou been afraid of your partner or ex-partner? No 02/24/2020 Within the last year, have y ou been humiliated or emotionally abused in other ways by your partner or ex-partner? No Within the last year, have y ou been kicked, hit, slapped, or otherwise physically hurt by your partner or ex-partner? No 02/24/2020 Within the last year, have y ou been raped or forced to have any kind of sexual activity by your partner or ex-partner? No 02/24/2020 Depression Answer Date Recor ded Last EPDS Total Score 5 03/09/2020 Last EPDS Self Harm Result 03/09 Comments No Sex and Gender Information Value Date Recorded Sex Assigned at Not on file Legal Sex Female 7:31 PM CDT Gender Identity Not on file Sexual Orientation Not on file Last Filed Vital Signs Vital Sign Reading Time Taken Comments Blood Pressure 116/82 03/09/2020 8:00 AM RN DOCUMENT IMPROVEMENT Pulse 72 03/09/2020 8:00 AM RN DOCUMENT IMPROVEMENT Temperature 36.7 C (98.1 F) 03/09/2020 8:00 AM RN DOCUMENT IMPROVEMENT Respiratory Rate 20 03/09/2020 8:00 AM RN DOCUMENT IMPROVEMENT Oxygen Saturation 100% 03/09/2020 12:35 AM RN DOCUMENT IMPROVEMENT Inhaled Oxygen Concentration - - Weight 79.8 kg (176 lb) 03/08/2020 2:23 AM RN DOCUMENT IMPROVEMENT Height 149.9 cm (4' 11.02 ) 03/08/2020 2:[address] Body Mass Index 35.53 03/08/2020 2:23 AM RN DOCUMENT IMPROVEMENT Plan of Treatment Health Maintenance Due Date Last Done Comments Annual Physical 1992 Hepatitis C 08/01/2007 Hepatitis B Vaccines (1 of 3 - 19+ 3-dose series) 2008 Cervical Cancer Screening Pa p with HPV Testing (Age 30 to 64) Every 5 Years 08/01/2019 12/18/2018 Cervical Cancer Screening Pa p Smear (Age 30 to 64) Every 3 Years 12/18/2021 12/18/2018 Cervical Cancer Screening wi th HPV 12/18/2021 COVID-19 Vaccine (1 - 2023-2 5 season) 2023 Influenza Adult (#1) 2023 DTaP, Tdap and Td Vaccines ( 3 - Td or Tdap) 12/20/2028 12/20/2018, 07/08/2014 HPV Vaccines Aged Out No longer eligi ble based on patient's age to complete this topic Meningococcal B Vaccine Aged Out No l onger eligible based on patient's age to complete this topic Meningococcal Vaccine Aged Out No jamir cassie eligible based on patient's age to complete this topic Pneumococcal Vaccine: Pediatrics (0 to 5 Years) and At-Risk Patients (6 to 64 Years) Aged Out No longer eligible b ased on patient's age to complete this topic RSV Immunizations Under 20 Months Aged Out No longer eligible b ased on patient's age to complete this topic Insurance [place] [address] [place] [address] Advance Directives * Full Code (Latest Code Status on File) Date Activated Date Inactivated Comments 03/08/2020 2:04 AM 03/09/2020 8:18 PM Care Teams Blending Tank Tender Relationship Specialty Start Date End Date Vin Sims MD [address] [address] PCP - General OBGYN 12/31/19
--- OUTSIDE RECORDS SUMMARY | 2024-04-21 14:11 | XMS_ITS | Clinical Summary ---
Author Organization [facility] [employer] Address [address] [place] [address] Care Team Providers Care Blind Aide Name Role Phone Julian Turcios Primary Care Provider [phone] Source Comments [facility],non-owned Affiliates and Associated Physician Practices is amultiple site organization consisting of ambulatory clinics and hospital sitesin [place], [place], [place] and [place]. This disclosure is being madepursuant to the Care Everywhere program and may not contain all information available regarding this patient. Last updated 17.[facility] [employer] Allergies Active Allergy Reactions Criticality Noted Date Comments Prednisone Anaphylaxis,Swelling High 06/02/2020 Fish Oil Anaphylaxis High 02/09/2024 Medications * Be aware that medications may not be up to date on this document. Alwaysverify current medications with the patient. Medication Sig Dispensed Refills Start Date End Date Status MV & Min w/FA-DHA ([facility] GUMMY PO)Indications:otc Take 2 tablets by mouth once daily Reasons: otc Active ELDERBERRY PO Active docusate sodium (Colace) 100 MG capsule Take 1 (one) capsule by mouth once daily as needed for constipation 30 capsule 3 02/08/2024 Active Additional Information Patient not taking.Reported on 02/20/2024 ibuprofen (Motrin) 600 MG tablet Take 1 (one) tablet by mouth every 6 hours as needed for Pain 30 tablet 1 02/08/2024 Active ferrous sulfate 325 (65 FE) MG tablet Take 1 (one) tablet by mouth once daily 30 tablet 1 02/08/2024 Active Additional Information Patient not taking.Reported on 02/20/2024 polyethylene glycol 3350 (Miralax) 17 GM/SCOOP powder Take 17 (seventeen) g by mouth once daily as needed for constipation 510 g 1 02/08/2024 Active Additional Information Patient not taking.Reported on 02/20/2024 plus iron (Natatab) 29-1 MG tablet Take 1 (one) tablet by mouth once daily 90 tablet 4 02/08/2024 Active Additional Information Patient not taking.Reported on 02/20/2024 acetaminophen (Tylenol) 500 MG tablet Take 1 (one) tablet by mouth every 4 hours as needed for Fever or Pain Maximum allowable Acetaminophen amount = 4 Grams (4000 mg) / 24 hours. 60 tablet 02/08/2024 Active nitrofurantoin monohyd macro crystals (Macrobid) 100 MG capsuleIndications :UTI prophylaxis Take 1 (one) capsule by mouth once daily Reasons: UTI prophylaxis Active Active Problems Problem Noted Date Diagnosed Date Routine follow-up 02/20/2024 Anxiety 02/20/2024 History of gestational hypertension: G9 02/19/19 25 History of depression 10/08/2023 Overview (10/08/2023): 2014 BMI 31.0-31.9,adult 10/10/2019 History of nephrolithiasis 03/12/2014 Overview (10/20/2018): First , Stone passed Assessment & Plan (01/01/2019 8:21 PM METAL FILER): Complaints suspicious for renal stone History of delivery 03/11/2014 Overview (10/08/2023): X 2 at 35 weeks, 1 at 36 Assessment & Plan (01/01/2019 8:20 PM METAL FILER): No longer taking Lesley. Remains at risk for recurrent delivery. Assessment & Plan (11/23/2018 6:47 PM CDT): Continue weekly [place] labor precautions Resolved Problems Problem Noted Date Diagnosed Date Resolved Date Supervision of high risk pre gnancy in third trimester 02/06/2024 02/20/2024 Uterine contractions 01/18/2024 025 Anemia during in third trimester 12/05/2023 02/20/2024 Glucose intolerance of 12/05/2023 02/20/2024 Obesity affecting 10/08/2023 02/20/2024 Overview (10/08/2023): Reports 157 lb pre- weight. Weight 159 lb at time of SAB in March. 172 lb at first visit here in August Labor and delivery indicatio n for care or intervention 01/17/2019 10/08/2023 Overview (06/02/2020): # ID: Afebrile. No signs/symptoms of infection. # Heme: EBL 150 mL. No symptoms acute blood loss anemia. # CV/Pulm: Vital signs stable, within normal limits. # GI/: Tolerating PO. Voiding spontaneously. Previously on APU for a complicated UTI w/ a h/o pyelonephritis in this . UCx 01/14 w/ Klebsiella resistant to cipro/macrobid. S/p CTX (01/14-), now keflex (01/17-01/18). # Pain: Controlled with above regimen. # Post DVT prophylaxis: Patient has the following moderate risk factors: BMI>30 and Current infection. Her post prophylaxis plan is SCDs and early ambulation # MOC: Declines until visit. Would like Ring, then interval BTL. # MOF: Formula feeding # Disposition: Continue routine care Threatened labor 01/07/2019 10/04/2019 Bacterial vaginosis in 01/01/2019 10/04/2019 Assessment & Plan (01/01/2019 8:22 PM METAL FILER): Diagnosed during her most recent triage visit 12/26/18 Finish metronidazole Uterine contractions during 12/26/2018 12/26/2018 Anemia in 10/20/2018 10/08/19 24 Overview (01/01/2019): Likely iron deficiency. MCV low normal, was low in early . History of iron deficiency with low MCV. Receiving Venofer Assessment & Plan (01/01/2019 8:19 PM METAL FILER): Tolerate a Venofer infusion given earlier today Assessment & Plan (11/23/2018 6:43 PM CDT): Orders given to have iron studies done Would benefit from Venofer 400 mg doses to replace iron with less number of infusion sessions History of PROM in p revious , currently 10/20/2018 02/20/2024 Overview (10/20/2018): Hx PROM at 16 weeks in prior . Delivered at home. Assessment & Plan (11/23/2018 6:43 PM CDT): Starting to lose mucus plug--Marian reports that she starts this about 6 weeks before she delivers. Deferred getting Tdap today. labor precautions emphasized Letter given for work restrictions Warrants weekly visits during this time of increased risk Supervision of high-risk 10/17/2018 02/20/2024 Assessment & Plan (01/01/2019 8:22 PM METAL FILER): labor precautions emphasized Assessment & Plan (11/23/2018 6:46 PM CDT): 3TM labs only remarkable for anemia [hgb 9] Anxiety during 10/17/2018 Overview (10/20/2018): Hx depression and anxiety, treated with Zoloft and Effexor. Hx PTSD. Assessment & Plan (01/01/2019 8:20 PM METAL FILER): Reassess at visits Assessment & Plan (11/23/2018 6:44 PM CDT): Reassess at visits UTI in 09/04/2018 10/08/2023 Overview (10/20/2018): In first trimester, Klebsiella, treated. Hx multiple UTIs. Assessment & Plan (01/01/2019 8:20 PM METAL FILER): Concern for urinary tract infection today. Planned Instructed to discontinue Macrobid Prescription given for cephalexin treatment and then to continue prophylaxis with this antibiotic Follow-up urine Culture sent today Assessment & Plan (11/23/2018 6:41 PM CDT): Will send Ucx today Pyelonephritis affecting 09/04/2018 10/08/2023 Overview (10/20/2018): In second trimester this . Hx pyelonephritis in previous pregnancies as well. Probable hx nephrolithiasis, no recent evaluation. Fever 09/03/2018 09/04/2018 Pyelonephritis 08/16/2014 07/11/2016 Nephrolithiasis 08/16/2014 07/11/2016 Anemia 08/16/2014 10/04/2018 Supervision of high-risk 05/17/2014 10/04/2018 Overview (07/11/2016): Overview: record from Dr. Wise reviewed, [facility] 05/19/16: Urine culture >100,000 cfu E.Coli O+, Absc negative Hgb 11.6 plts 330 HBsAg NR Rubella IgG immune RPR NR HIV NR GC/CT negative Pap: negative for intraepithelial malignancy SMA testing: negative CF carrier status: negative Fragile X: negative Progenity cell-free DNA: low risk female Urine Drug Screen negative History of pyelonephritis during 03/12/2014 02/20/2024 Overview (10/08/2023): In at least 2 pregnancies; hx multiple UTIs pericardial effusion 0 10/08/2023 Overview (01/01/2019): Physiologic amount noted on prior exams Encounters Date Type Department Care Team Description 03/19/2024 Telephone [facility] [address] [place] [address] Ruma Haider APRN-KOBE Missed Appointment 02/20/2024 11:20 AM METAL FILER Clinical Support [facility] [address] [facility] [address] [place] [address] Ruma Haider APRN-CNP Routine follow-up (HCC) ; History of delivery; History of depression; Anxiety; History of gestational hypertension: G9 02/20/2024 Travel 02/09/2024 1:15 PM METAL FILER - 02/09/2024 3:38 PM METAL FILER Hospital Encounter [facility] [address] [place] [id number] Gilberto Benavidez MD Discharge Disposition: Home or Self Care 02/09/2024 Telephone [facility] [address] [place] [address] [address] [place] [address] Ruma Haider APRN-CNP Future Appointment 02/06/2024 4:53 PM METAL FILER Anesthesia Event [facility] [address] [facility] [address] [place] [id number] Robert Oneal MD Brock, Christianne Hernandez APRN-OLESYA 02/06/2024 1:36 PM METAL FILER - 02/08/2024 10:44 AM METAL FILER Hospital Encounter [facility] 6W MOTHER/BABY [address] [id number] Fatmata Waldron MD Dildy, Gary A, MD [facility] Discharge Disposition: Home or Self Care 02/06/2024 Travel 01/30/2024 1:00 PM METAL FILER visit [facility] [address] [place] [address] [place] [phone] Leidy Valdivia MD [place]: [id number] 01/30/2024 Travel 01/23/2024 1:00 PM METAL FILER visit [facility] [address] [place] [address] [address] [place] [address] Ruma Haider APRN-CNP [place]: [id number] 01/23/2024 Travel from Last 3 Months Immunizations Name Administration Dates Next Due MMR 02/08/2024() TDAP (7yrs+) 02/08/2024(),09/18/2022,12/21/19 19,07/08/2014 TDAP, HISTORIC VACCINE 07/09/2014 Family History Medical History Relation Name Comments Diabetes Father Hypertension Father Cancer Paternal Grandmother breast, uterine Diabetes Paternal Grandmother Relation Name Status Comments Father Maternal Grandfather Maternal Grandmother Mother Alive Paternal Grandfather Paternal Grandmother Social History Tobacco Use Types Packs/Day Years Used Date Smoking Tobacco: Never Smokeless Tobacco: Never Tobacco Cessation:Counseling Given: Not Answered Alcohol Use Standard Drinks/Week Comments No 0 (1 standard drink = 0.6 oz pur e alcohol) Overall Financial Resource Strain (CARDIA) Answe r Date Recorded How hard is it for you to pa y for the very basics like food, housing, medical care, and heating? Not hard at all 02/09/2024 PHQ-2 Answer Date Recorded Patient Health Questionnaire-2 Score 0 12/23/2023 [facility] - Occupational Stress Questionnaire Answer Date Recorded Do you feel stress - tense, restless, nervous, or anxious, or unable to sleep at night because your mind is troubled all the time - these days? Not at all 02/09/2024 Hunger Vital Sign Answer Date Recorded Within the past 12 months, y ou worried that your food would run out before you got the money to buy more. Never true 02/08/19 25 Within the past 12 months, t he food you bought just didn't last and you didn't have money to get more. Never true 02/09/2024 PRAPARE - Transportation Answer Date Re corded In the past 12 months, has l ack of transportation kept you from medical appointments or from getting medications? No 03/2024 In the past 12 months, has l ack of transportation kept you from meetings, work, or from getting things needed for daily living? No 02/09/2024 Housing Stability Vital Sign Answer Rodriguez e [...] place to sleep or slept in a fdc (including now)? No 08/22/2023 Lottie Depression Scale Answer Date Recorded Lottie Depression Scale Total 5 02/20/2024 The thought of harming myself has occurred to me . Never 02/20/2024 Housing Stability Vital Sign Answer Rodriguez e Recorded In the last 12 months, was t here a time when you were not able to pay the mortgage or rent on time? No 02/09/2024 In the past 12 months, how m any times have you moved where you were living? 0 02/09/2024 At any time in the past 12 m [place], were you homeless or living in a fdc (including now)? No 02/09/2024 Education Answer Date Recorded What is the highest level of school you have completed or the highest degree you have received? Bachelor's degree (e.g., BA, AB, BS) 10/10/2019 Sex and Gender Information Value Date Recorded Sex Assigned at Female 04/04/2022 3:36 AM METAL FILER Gender Identity Female 04/04/2022 3:36 AM METAL FILER Sexual Orientation Straight 04/04/2022 3: 36 AM METAL FILER Last Filed Vital Signs Vital Sign Reading Time Taken Comments Blood Pressure 118/70 02/20/2024 11:29 AM METAL FILER Pulse 102 02/08/2024 7:55 AM METAL FILER Temperature 37.1 C (98.7 F) 02/09/2024 1:28 PM METAL FILER Respiratory Rate 18 02/09/2024 1:28 PM METAL FILER Oxygen Saturation 100% 02/09/2024 1:30 PM METAL FILER Inhaled Oxygen Concentration - - Weight 79.8 kg (176 lb) 02/20/2024 11:29 AM METAL FILER Height 149.9 cm (4' 11 ) 02/20/2024 11:29 AM METAL FILER Body Mass Index 35.55 02/20/2024 11:29 AM METAL FILER Plan of Treatment Health Maintenance Due Date Last Done Comments HEPATITIS B VACCINE (1 of 3 - 19+ 3-dose series) 2008 PAP SMEAR 05/20/2019 05/19/2016 (Done Outside Per Report), 02/07/1998 COVID-19 VACCINE ( season) 2023 INFLUENZA VACCINE (#1) 2023 DTAP/TDAP/TD VACCINES (5 - Td or Tdap) 09/18/2032 09/18/2022, 12/20/2018, 07/09/2014, Additional history exists ZOSTER VACCINE (1 of 2) 08/01/2039 HEPATITIS C SCREENING Completed 08/22/2023 HIV SCREENING Completed 12/01/2023, 08/07, 10/25/2018 DEPRESSION SCREENING Completed 02/20/2024 HIB VACCINE Aged Out No longer eligi ble based on patient's age to complete this topic HPV VACCINE Aged Out No longer eligi ble based on patient's age to complete this topic MENINGOCOCCAL (Group B) VACCINE SHARED DECISION-MAKING Aged Out No longer eligible based on patient's age to complete this topic MENINGOCOCCAL GROUPS A/C/Y/W VACCINE Aged Out No longer eligible based on patient's age to complete this topic PNEUMOCOCCAL VACCINE Aged Out No long er eligible based on patient's age to complete this topic Procedures Procedure Name Priority Date/Time Associated Diagnosis Comments CBC W/O DIFFERENTIAL STAT 02/09/2024 1:56 PM METAL FILER Supervision of high risk in third trimester (HCC) COMPREHENSIVE METABOLIC PANEL STAT 02/09/2024 1:56 PM METAL FILER Supervision of high risk in third trimester (HCC) CBC W AUTO DIFFERENTIAL AM Draw 02/07/2024 5:16 AM METAL FILER COMPREHENSIVE METABOLIC PANEL AM Draw 02/07/2024 5:16 AM METAL FILER BLOOD GASES CORD ART (ISTAT) Routine 02/07/2024 12:40 AM METAL FILER NEURAXIAL BLOCK Routine 02/06/2024 4:56 PM METAL FILER TYPE + SCREEN PANEL STAT 02/06/2024 2 :53 PM METAL FILER SYPHILIS ANTIBODY CASCADING REFLEX STAT 02/06/2024 2:53 PM METAL FILER CBC W AUTO DIFFERENTIAL STAT 02/06/2024 2:53 PM METAL FILER CULTURE URINE Routine 01/30/2024 1:43 PM METAL FILER Supervision of high risk , antepartum (HCC) URINALYSIS AUTO - POINT OF CARE (AMB) [facility] Routine 01/30/2024 1:32 PM METAL FILER Supervision of high risk , antepartum (HCC) URINALYSIS AUTO - POINT OF CARE (AMB) [facility] Routine 01/23/2024 1:15 PM METAL FILER Supervision of high risk , antepartum (HCC) HIV-1 HIV-2 ANTIBODY + HIV P24 AG PANEL Routine 12/01/2023 7:22 AM CDT Supervision of high risk in third trimester (HCC) HEPATITIS C ANTIBODY Routine 08/22/2023 10:32 AM CDT Supervision of high risk in second trimester (HCC) PAP THINPREP Routine 02/07/1998 12:00 AM METAL FILER from Last 3 Months or Most Recently Relevant to Health Maintenance Results * (ABNORMAL) CBC W/O DIFFERENTIAL (02/09/2024 1:56 PM METAL FILER) [facility] WBC 8.6 4.0 - 10.7 x10E9/L 02/09/2024 3:20 PM METAL FILER [facility] RBC Count 4.24 3.90 - 5.20 x10E12/L 02/09/2024 3:20 PM METAL FILER [facility] Hemoglobin 12.0 11.9 - 15.8 g/dL 02/09/2024 3:20 PM METAL FILER [facility] Hematocrit 36.5 34.8 - 46.1 % 02/09/2024 3:20 PM METAL FILER [facility] MCV 86.1 80.0 - 98.0 fL 02/09/2024 3:20 PM METAL FILER [facility] MCH 28.3 26.7 - 33.6 pg 02/09/2024 3:20 PM METAL FILER [facility] MCHC 32.9 31.7 - 36.3 g/dL 02/09/2024 3:20 PM METAL FILER [facility] RDW-CV 17.2(H) 11.3 - 14.8 % 02/09/2024 3:20 PM [facility] Platelet Count 255 150 - 420 x10E9/L 02/09/2024 3:20 PM [facility] MPV 11.5(H) 7.8 - 11.4 fL 02/09/2024 3:20 PM [facility] Blood BLOOD SPECIMEN / Unknown Venipuncture / Unknown 02/09/2024 1:56 PM METAL FILER 02/09/2024 2:25 PM [facility] Gilberto Benavidez MD LAB - HEMATOLOGY ORD ERABLES [facility] [address] [place], [place] [id number] * (ABNORMAL) COMPREHENSIVE METABOLIC PANEL (02/09/2024 1:56 PM [facility]) Only the most recent of2 resultswithin the time period is included. Glucose 67(L) 70 - 99 mg/dL 02/09/2024 3:01 PM [facility] Sodium 137 136 - 145 mmol/L 02/09/2024 3:01 PM [facility] Potassium 3.8 3.5 - 5.1 mmol/L 02/09/2024 3:01 PM [facility] Chloride 109(H) 98 - 107 mmol/L 02/09/2024 3:01 PM [facility] CO2 20(L) 22 - 29 mmol/L 02/09/2024 3:01 PM [facility] Calcium 8.9 8.4 - 10.4 mg/dL 02/09/2024 3:01 PM [facility] Anion Gap 8 6 - 16 mmol/L 02/09/2024 3:01 PM [facility] BUN 7 5.3 - 18.7 mg/dL 02/09/2024 3:01 PM [facility] Creatinine 0.58 0.57 - 1.11 mg/dL 02/09/2024 3:01 PM [facility] Alkaline Phosphatase 88 40 - 150 U/L 02/09/2024 3:01 PM [facility] ALT 11 0 - 55 U/L 02/09/2024 3:01 PM [facility] AST 14 5 - 34 U/L 02/09/2024 3:01 PM [facility] Protein Total 6.8 6.4 - 8.3 gm/dL 02/09/2024 3:01 PM [facility] Albumin 2.6(L) 3.4 - 5.0 gm/dL 02/09/2024 3:01 PM [facility] Bilirubin Total 0.3 0.2 - 1.2 mg/dL 02/09/2024 3:01 PM [facility] eGFR by CKD-EPI >90 >=90 mL/min/1.7 3 m2 02/09/2024 3:01 PM [facility] Blood BLOOD SPECIMEN / Unknown Venipuncture / Unknown 02/09/2024 1:56 PM METAL FILER 02/09/2024 2:25 PM METAL FILER Gilberto Benavidez MD LAB - [facility]MISTRY [facility] Organization Address City/State/ZIP Co de Phone Number [facility] [address] [place] [address] * (ABNORMAL) CBC W AUTO DIFFERENTIAL (02/07/2024 5:16 AM METAL FILER) Only the most recent of2 resultswithin the time period is included. WBC 14.7(H) 4.0 - 10.7 x10E9/L 02/07/2024 5:41 AM [facility] RBC Count 3.95 3.90 - 5.20 x10E12/L 02/07/2024 5:41 AM [facility] Hemoglobin 11.0(L) 11.9 - 15.8 g/dL 02/07/2024 5:41 AM [facility] Hematocrit 33.8(L) 34.8 - 46.1 % 02/07/2024 5:41 AM [facility] MCV 85.6 80.0 - 98.0 fL 02/07/2024 5:41 AM [facility] MCH 27.8 26.7 - 33.6 pg 02/07/2024 5:41 AM [facility] MCHC 32.5 31.7 - 36.3 g/dL 02/07/2024 5:41 AM [facility] RDW-CV 17.0(H) 11.3 - 14.8 % 02/07/2024 5:41 AM [facility] Platelet Count 187 150 - 420 x10E9/L 02/07/2024 5:41 AM [facility] MPV 11.0 7.8 - 11.4 fL 02/07/2024 5:41 AM [facility] Neutrophil % 82.6(H) 41.0 - 74.0 % 02/07/2024 5:41 AM [facility] Lymphocyte % 8.2(L) 17.0 - 47.0 % 02/07/2024 5:41 AM [facility] Monocyte % 8.2 3.0 - 11.0 % 02/07/2024 5:41 AM [facility] Eosinophil % 0.2 0.0 - 7.0 % 02/07/2024 5:41 AM [facility] Basophil % 0.1 0.0 - 1.6 % 02/07/2024 5:41 AM [facility] Immature Granulocytes % 0.7 0.0 - 1.0 % 02/07/2024 5:41 AM [facility] Neutrophil Absolute 12.15(H) 1.60 - 7.50 x10E9/L 02/07/2024 5:41 AM [facility] Lymphocyte Absolute 1.21 1.00 - 4.40 x10E9/L 02/07/2024 5:41 AM [facility] Monocyte Absolute 1.20(H) 0.15 - 1.00 x10E9/L 02/07/2024 5:41 AM [facility] Eosinophil Absolute 0.03 0.00 - 0.60 x10E9/L 02/07/2024 5:41 AM [facility] Basophil Absolute 0.02 0.00 - 0.13 x10E9/L 02/07/2024 5:41 AM [facility] Blood BLOOD SPECIMEN / Unknown Lab Venipuncture / Unknown 02/07/2024 5:16 AM METAL FILER 02/07/2024 5:21 AM METAL FILER Gilberto Benavidez MD LAB - HEMATOLOGY ORD ERABLES [facility] [address] [place] [address] * (ABNORMAL) BLOOD GASES CORD ART (ISTAT) (02/07/2024 12:40 AM METAL FILER) pH Cord Arterial POCT 7.20 7.20 - 7.34 pH 02/07/2024 12:49 AM METAL FILER [facility] pCO2 Cord Arterial POCT 65.2(H) 45 - 55 mm hg 02/07/2024 12:49 AM METAL FILER [facility] pO2 Cord Arterial POCT 15 12 - 25 mm hg 02/07/2024 12:49 AM METAL FILER [facility] HCO3 Cord Arterial POCT 25.7(H) 22 - 24 mmol/L 02/07/2024 12:49 AM METAL FILER [facility] BE Cord Arterial POCT -4(L) -2.9 - 8.3 mmol/L 02/07/2024 12:49 AM METAL FILER [facility] TCO2 Cord Arterial POCT 28 mmol/L 02/07/2024 12:49 AM [facility] O2 Saturation Cord Art % Calc POCT 13 % 02/07/2024 12:49 AM METAL FILER [facility] Site CORD ART 02/07/2024 12:49 AM METAL FILER [facility] Sample iSTAT CORD ART 02/07/2024 12:49 AM [facility] Blood CORD BLOOD SPECIMEN / Unknown 02/07/2024 12:40 AM METAL FILER 02/07/2024 12:49 AM METAL FILER Gilberto Benavidez MD LAB - POINT OF CARE ORDERABLES Performing Organization Address City/State/[facility] Co de Phone Number [facility] [address] [place] [address] * EPIDURAL BLOCK PERF (02/06/2024 4:56 PM METAL FILER) Narrative Christianne Cameron APRN-CRNA - 02/06/2024 4:56 PM METAL FILER Christianne Cameron APRN-CRNA 02/06/2024 5:06 PM Neuraxial Block Note Pre-Procedure: Procedure Name: Neuraxial Block Patient Location: OB Indications: labor analgesia Pre-Anesthetic Checklist: Patient identified, IV Checked, Risks and benefits discussed, Surgical consent verified, Monitors and equipment, Site examined, Pre-op evaluation done, Time-out performed, Informed consent obtained, Questions answered/anesthesia questions answered and Allergies reviewed Anticoagulation/ Anti-thrombosis status confirmed? Yes Monitors: BP and continuous pluse ox Patient Condition: awake Patient Sedated? No Procedure: Block Type: Epidural Prep: Betadine Sterile Field: mask, cap/hat, sterile established and sterile gloves Approach: midline Skin was localized? Yes Skin localized with: lidocaine (XYLOCAINE MPF) 1 % injection - Infiltration 3 mL - 02/06/2024 4:56:00 PM Epidural Block: Is this procedure for postop pain? No Needle Type: Tuohy Needle gauge: 18 G Needle length: 90 mm Placement Site: L3-L4 Number of Attempts: 1 Loss of Resistance: 7 air Catheter length at skin (cm): 11 CSF Aspirated from catheter: No Blood Aspirated: No Test Dose: lidocaine 1.5% with 1-200,000 epinephrine 5 mL at 02/06/2024 4:58 PM Test Dose Response: No Epidural Infusion Medications: Ropivacaine: 0.2% with Fentanyl 2mcg/mL in NS , at 8 mL/hr Degree of difficulty: none Procedure Tolerance: tolerated well Sensory Level: T7 Motor Blockade: Yes Position post procedure: left uterine displacement Vital Signs: Vital signs moniitored and stable throughout. See nursing vitals flowsheet for details. Start Time: 02/06/2024 4:56 PM End Time: 02/06/2024 4:58 PM Total Time: 2 Staff: Anesthesia Provider: Christianne Cameron APRN-LOAF COUNTER - performed the procedure Robert Oneal MD GENERAL ANESTHESIA O RDERABLES * SYPHILIS ANTIBODY CASCADING REFLEX (02/06/2024 2:53 PM METAL FILER) Treponema pallidum Antibody Non Reactive Non Reactive 02/06/2024 3:42 PM METAL FILER [facility] Comment: No Laboratory evidence of syphilis infection. Note: Circulating antibodies may be low or undetectable in early infection. If recent exposure is suspected, re-draw sample in 2-4 weeks and repeat testing. Blood BLOOD SPECIMEN / Unknown Venipuncture / Unknown 02/06/2024 2:53 PM METAL FILER 02/06/2024 3:04 PM METAL FILER Fatmata Waldron MD LAB - SEROLOGY ORDER CARINA Performing Organization Address [facility]/ZIP Co de Phone Number [facility] [address] [place] [address] * TYPE + SCREEN PANEL (ALL [facility] except [facility]) (02/06/2024 2:53 PM METAL FILER) Pathologist [facility] [place] ABO Rh O POS 02/06/2024 3:40 PM METAL FILER [facility] Comment:History checked. Antibody Screen NEG 3:40 PM METAL FILER [facility] Blood Bank BLOOD SPECIMEN / Unknown Venipuncture / Unknown 02/06/2024 2:53 PM METAL FILER 02/06/2024 3:04 PM METAL FILER Fatmata Waldron MD LAB - BLOOD BANK ORD ERABLES Performing Organization Address [facility] Co de Phone Number [facility] [address] [place] [id number] [place] [address] * CULTURE URINE (01/30/2024 1:43 PM METAL FILER) Pathologist [facility] [place] Culture [facility]ST Comment: CULTURE, URINE, ROUTINE Micro Number: [id number] Test Status: Final Specimen Source: Urine, clean catch Specimen Quality: Adequate Result: No Growth Test Performed at: [facility] [address] [address] MAMIE LIMON MD Urine URINE SPECIMEN OBTAINED BY CLEAN CATCH PROCEDURE / Unknown 01/30/2024 1:43 PM METAL FILER 01/31/2024 4:38 AM METAL FILER Leidy Valdivia MD LAB - M ICROBIOLOGY ORDERABLES Performing Organization Address [facility]/ZIP Co de Phone Number [address] [address] * URINALYSIS AUTO - POINT OF CARE (AMB) [facility] (01/30/2024 1:32 PM METAL FILER) Only the most recent of2 resultswithin the time period is included. Pathologist [facility] [place] Glucose UA negative [facility] [address] Bilirubin UA POCT negative [facility] [address] Ketones UA POCT ++ [facility] [address] Comment:moderate Specific [place] UA 1.[address] [facility] [address] Blood Urine POCT negative [facility] [address] pH UA 6.[address] [facility] [address] Protein UA negative [facility] [address] Urobilinogen UA normal [facility] [address] Nitrite UA negative [facility] [address] WBC UA + [facility] [address] Urine URINE / Unknown 01/30/2024 1 :32 PM METAL FILER Leidy Valdivia MD LAB - P OINT OF CARE ORDERABLES [facility] [address] [place] [address], [facility] [phone] * HIV-1 HIV-2 ANTIBODY + HIV P24 AG PANEL (12/01/2023 7:22 AM CDT) HIV Screen 4th Generation w Reflex NON-REACT SAMUEL NON-REACT SAMUEL [facility] Comment: HIV-1 antigen and HIV-1/HIV-2 antibodies were not detected. There is no laboratory evidence of HIV infection. PLEASE NOTE: This information has been disclosed to you from records whose confidentiality may be protected by state law. If your state requires such protection, then the state law prohibits you from making any further disclosure of the information without the specific written consent of the person to whom it pertains, or as otherwise permitted by law. A general authorization for the release of medical or other information is NOT sufficient for this purpose. For additional information please refer to http://education.[employer].Babyage/faq/YXA623 (This link is being provided for informational/ educational purposes only.) The performance of this assay has not been clinically validated in patients less than 2 years old. Test Performed at: [facility] [address] [place] [address] MAMIE LIMON MD Blood BLOOD SPECIMEN / Unknown 12/01/2023 7:22 AM CDT 12/01/2023 7:22 AM CDT Ruma VILLANUEVA LAB - CHEMISTR Y ORDERABLES [facility] [address] [place] [address] * HEPATITIS C ANTIBODY (08/22/2023 10:32 AM CDT) HCV Antibody Screen Non Reactive Non Reactive 08/22/2023 12:42 PM CDT [facility] Blood BLOOD SPECIMEN / Unknown Venipuncture / Unknown 08/22/2023 10:32 AM CDT 08/22/2023 12:00 PM CDT Narrative [facility] - 08/22/2023 12:42 PM CDT Non Reactive - Antibodies to Hepatitis C virus (HCV) were not detected, result does not exclude early acute HCV infection. Shira Andrade MD LAB - CHEMISTR Y ORDERABLES Performing Organization Address City/[facility]/ZIP Co de Phone Number [facility] [address] [place] [address] * PAP THINPREP (02/07/1998 12:00 AM METAL FILER) Prostatic Acid Phosphatase WNL @ Dr. Sims' s [facility] Cervical swab (specimen) PART OF UTERINE CERVIX / Unknown 02/07/1998 Narrative [facility] - 02/07/1998 12:00 AM METAL FILER This external order was created through the Results Console. Historical Provider LAB - PATHOLOGY/C YTOLOGY ORDERABLES [facility] from Last 3 Months or Most Recently Relevant to Health Maintenance Advance Directives * Full Code (Latest Code Status on File) Date Activated Date Inactivated Comments 02/06/2024 2:40 PM 02/08/2024 11:45 AM * Full Code Date Activated Date Inactivated Comments 01/14/2019 12:01 AM 01/14/2019 2:41 AM * Full Code Date Activated Date Inactivated Comments 01/07/2019 4:13 PM 01/07/2019 8:12 PM * Full Code Date Activated Date Inactivated Comments 12/26/2018 10:02 AM 12/26/2018 2:36 PM * Full Code Date Activated Date Inactivated Comments 12/18/2018 4:02 PM 12/18/2018 6:29 PM Care Teams Blind Aide Relationship Specialty Start Date End Date Julian Turcios DO [address] [address] PCP - General Family Medicine 05/27/20
--- OUTSIDE RECORDS SUMMARY | 2024-04-21 14:11 | XMS_ITS | Referral Summary ---
Author Organization [facility] Address [address] [facility] [place] [address] Care Team Providers Care Control Panel Operator Crude Unit Name Role Phone Julian Turcios Primary Care Provider [phone] Source Comments [facility],non-owned Affiliates and Associated Physician Practices is amultiple site organization consisting of ambulatory clinics and hospital sitesin [place], [place], [place] and [place]. This disclosure is being madepursuant to the Care Everywhere program and may not contain all information available regarding this patient. Last updated 17.[facility] Encounters Date Type Department Care Team Description 03/19/2024 Telephone [facility] - IP ATTORNEY [address] [place] [phone] Ruma Haider APRN-CNP Missed Appointment 02/20/2024 Travel 02/20/2024 11:20 AM COIL TAPER Clinical Support [facility] - IP ATTORNEY [address] [place] [phone] Ruma Haider APRN-CNP Routine follow-up (HCC) ; History of delivery; History of depression; Anxiety; History of gestational hypertension: G9 02/09/2024 1:15 PM COIL TAPER - 02/09/2024 3:38 PM COIL TAPER Hospital Encounter [facility] [address] [place] [address] Gilberto Benavidez MD Discharge Disposition: Home or Self Care 02/09/2024 Telephone [facility] - IP ATTORNEY [address] [place] [address] Ruma Haider APRN-CNP Future Appointment 02/06/2024 1:36 PM COIL TAPER - 02/08/2024 10:44 AM COIL TAPER Hospital Encounter [facility] 6W MOTHER/BABY [address] [place] [address] Fatmata Waldron MD Dildy, Gary A, MD IP ATTORNEY Discharge Disposition: Home or Self Care 02/06/2024 4:53 PM COIL TAPER Anesthesia Event [facility] [address] [place] [address] Robert Oneal MD Brock, Tonya Marie, APRN-CRNA 02/06/2024 Travel 01/30/2024 Travel 01/30/2024 1:00 PM COIL TAPER visit [facility] - IP ATTORNEY [address] [facility] [address] [place] [phone] Leidy Valdivia MD GA: 38w0d 01/23/2024 Travel 01/23/2024 1:00 PM COIL TAPER visit [facility] - IP ATTORNEY [address] [place] [address] Ruma Haider APRN-CNP [place]: 37w0d from Last 3 Months Allergies Active Allergy Reactions Criticality Noted Date [...] passed Assessment & Plan (01/01/2019 8:21 PM COIL TAPER): Complaints suspicious for renal stone History of delivery 03/11/2014 Overview (10/08/2023): X 2 at 35 weeks, 1 at 36 Assessment & Plan (01/01/2019 8:20 PM COIL TAPER): No longer taking Lesley. Remains at risk for recurrent delivery. Assessment & Plan (11/23/2018 6:47 PM CDT): Continue weekly [place] labor precautions Resolved Problems Problem Noted Date [...] 10/04/2019 Assessment & Plan (01/01/2019 8:22 PM COIL TAPER): Diagnosed during her most recent triage visit 12/26/18 Finish metronidazole Uterine contractions during 12/26/2018 12/26/2018 Anemia in 10/20/2018 10/08/19 24 Overview (01/01/2019): Likely iron deficiency. MCV low normal, was low in early . History of iron deficiency with low MCV. Receiving Venofer Assessment & Plan (01/01/2019 8:19 PM COIL TAPER): Tolerate a Venofer infusion given earlier today [...] 02/20/2024 Assessment & Plan (01/01/2019 8:22 PM COIL TAPER): labor precautions emphasized Assessment & Plan (11/23/2018 6:46 PM CDT): 3TM labs only remarkable for anemia [hgb 9] Anxiety during 10/17/2018 Overview (10/20/2018): Hx depression and anxiety, treated with Zoloft and Effexor. Hx PTSD. Assessment & Plan (01/01/2019 8:20 PM COIL TAPER): Reassess at visits Assessment & Plan (11/23/2018 6:44 PM CDT): Reassess at visits UTI in 09/04/2018 10/08/2023 Overview (10/20/2018): In first trimester, Klebsiella, treated. Hx multiple UTIs. Assessment & Plan (01/01/2019 8:20 PM COIL TAPER): Concern for urinary tract infection today. Planned [...] (07/11/2016): Overview: record from Dr. Wise reviewed, [facility] 05/19/16: Urine culture >100,000 cfu E.Coli O+, [...] (01/01/2019): Physiologic amount noted on prior exams Immunizations Name Administration Dates Next Due MMR 02/08/2024() TDAP (7yrs+) 02/08/2024(),09/18/2022,12/21/19 19,07/08/2014 TDAP, HISTORIC VACCINE 07/09/2014 Social History Tobacco Use Types Packs/Day Years [...] Recorded Patient Health Questionnaire-2 Score 0 12/23/2023 [facility] [place] of Occupat ional Health - Occupational Stress [...] place to sleep or slept in a alf (including now)? No 08/22/2023 [place] Depression Scale Answer Date Recorded [place] Depression Scale Total 5 02/20/2024 The thought [...] time in the past 12 [address] [place], were you homeless or living in a alf (including now)? No 02/09/2024 Education Answer Date Recorded What is the highest level of school you have completed or the highest degree you have received? Bachelor's degree (e.g., BA, AB, BS) 10/10/2019 Sex and Gender Information Value Date Recorded Sex Assigned at Female 04/04/2022 3:36 AM COIL TAPER Gender Identity Female 04/04/2022 3:36 AM COIL TAPER Sexual Orientation Straight 04/04/2022 3: 36 AM COIL TAPER Last Filed Vital Signs Vital Sign Reading Time Taken Comments Blood Pressure 118/70 02/20/2024 11:29 AM COIL TAPER Pulse 102 02/08/2024 7:55 AM COIL TAPER Temperature 37.1 C (98.7 F) 02/09/2024 1:28 PM COIL TAPER Respiratory Rate 18 02/09/2024 1:28 PM COIL TAPER Oxygen Saturation 100% 02/09/2024 1:30 PM COIL TAPER Inhaled Oxygen Concentration - - Weight 79.8 kg (176 lb) 02/20/2024 11:29 AM COIL TAPER Height 149.9 cm (4' 11 ) 02/20/2024 11:29 AM COIL TAPER Body Mass Index 35.55 02/20/2024 11:29 AM COIL TAPER Functional Status Functional Status Response Date of Assess ment Is person deaf or have serious hearing difficult y? No 02/06/2024 Is person blind or have serious difficulty seein g? No 02/06/2024 Does person have serious dif ficulty walking/climbing stairs? No 02/06/2024 Does person have difficulty dressing/bathing? No 02/06/2024 Does person have difficulty doing errands alone? No 02/06/2024 Cognitive Status Response Date of Assessm ent Does person have difficulty concentrating/remembering/making decisions? No 02/06/2024 Plan of Treatment Not on file Procedures Procedure Name Priority Date/Time Associated Diagnosis Comments CBC W/O DIFFERENTIAL STAT 02/09/2024 1:56 PM COIL TAPER Supervision of high risk in third trimester (HCC) COMPREHENSIVE METABOLIC PANEL STAT 02/09/2024 1:56 PM COIL TAPER Supervision of high risk in third trimester (HCC) CBC W AUTO DIFFERENTIAL AM Draw 02/07/2024 5:16 AM COIL TAPER COMPREHENSIVE METABOLIC PANEL AM Draw 02/07/2024 5:16 AM COIL TAPER BLOOD GASES CORD ART (ISTAT) Routine 02/07/2024 12:40 AM COIL TAPER NEURAXIAL BLOCK Routine 02/06/2024 4:56 PM COIL TAPER TYPE + SCREEN PANEL STAT 02/06/2024 2 :53 PM COIL TAPER SYPHILIS ANTIBODY CASCADING REFLEX STAT 02/06/2024 2:53 PM COIL TAPER CBC W AUTO DIFFERENTIAL STAT 02/06/2024 2:53 PM COIL TAPER CULTURE URINE Routine 01/30/2024 1:43 PM COIL TAPER Supervision of high risk , antepartum (HCC) URINALYSIS AUTO - POINT OF CARE (AMB) [facility] Routine 01/30/2024 1:32 PM COIL TAPER Supervision of high risk , antepartum (HCC) URINALYSIS AUTO - POINT OF CARE (AMB) [facility] Routine 01/23/2024 1:15 PM COIL TAPER Supervision of high risk , antepartum (HCC) HIV-1 HIV-2 ANTIBODY + HIV P24 AG PANEL Routine 12/01/2023 7:22 AM CDT Supervision of high risk in third trimester (HCC) HEPATITIS C ANTIBODY Routine 08/22/2023 10:32 AM CDT Supervision of high risk in second trimester (HCC) PAP THINPREP Routine 02/07/1998 12:00 AM COIL TAPER from Last 3 Months or Most Recently Relevant to Health Maintenance Results * (ABNORMAL) CBC W/O DIFFERENTIAL (02/09/2024 1:56 PM COIL TAPER) [facility] WBC 8.6 4.0 - 10.7 x10E9/L 02/09/2024 3:20 PM COIL TAPER [facility] RBC Count 4.24 3.90 - 5.20 x10E12/L 02/09/2024 3:[address] [facility] Hemoglobin 12.0 11.9 - 15.8 g/dL 02/09/2024 3:[address] [facility] Hematocrit 36.5 34.8 - 46.1 % 02/09/2024 3:[address] [facility] MCV 86.1 80.0 - 98.0 fL 02/09/2024 3:[address] [facility] MCH 28.3 26.7 - 33.6 pg 02/09/2024 3:[address] [facility] MCHC 32.9 31.7 - 36.3 g/dL 02/09/2024 3:[address] [facility] RDW-CV 17.2(H) 11.3 - 14.8 % 02/09/2024 3:[address] [facility] Platelet Count 255 150 - 420 x10E9/L 02/09/2024 3:[address] [facility] MPV 11.5(H) 7.8 - 11.4 fL 02/09/2024 3:[address] [facility] Blood BLOOD SPECIMEN / Unknown Venipuncture / Unknown 02/09/2024 1:56 PM COIL TAPER 02/09/2024 2:25 PM COIL TAPER Gilberto Benavidez MD LAB - HEMATOLOGY ORD ERABLES [facility] [address] [place] [address] * (ABNORMAL) COMPREHENSIVE METABOLIC PANEL (02/09/2024 1:56 PM COIL TAPER) Only the most recent of2 resultswithin the time period is included. [facility] Glucose 67(L) 70 - 99 mg/dL 02/09/2024 3:[address] [facility] Sodium 137 136 - 145 mmol/L 02/09/2024 3:[address] [facility] Potassium 3.8 3.5 - 5.1 mmol/L 02/09/2024 3:[address] [facility] Chloride 109(H) 98 - 107 mmol/L 02/09/2024 3:[address] [facility] CO2 20(L) 22 - 29 mmol/L 02/09/2024 3:[address] [facility] Calcium 8.9 8.4 - 10.4 mg/dL 02/09/2024 3:[address] [facility] Anion Gap 8 6 - 16 mmol/L 02/09/2024 3:[address] [facility] BUN 7 5.3 - 18.7 mg/dL 02/09/2024 3:[address] [facility] Creatinine 0.58 0.57 - 1.11 mg/dL 02/09/2024 3:[address] [facility] Alkaline Phosphatase 88 40 - 150 U/L 02/09/2024 3:[address] [facility] ALT 11 0 - 55 U/L 02/09/2024 3:[address] [facility] AST 14 5 - 34 U/L 02/09/2024 3:[address] [facility] Protein Total 6.8 6.4 - 8.3 gm/dL 02/09/2024 3:[address] [facility] Albumin 2.6(L) 3.4 - 5.0 gm/dL 02/09/2024 3:[address] [facility] Bilirubin Total 0.3 0.2 - 1.2 mg/dL 02/09/2024 3:[address] [facility] eGFR by CKD-EPI >90 >=90 mL/min/1.7 3 m2 02/09/2024 3:[address] [facility] Blood BLOOD SPECIMEN / Unknown Venipuncture / Unknown 02/09/2024 1:56 PM COIL TAPER 02/09/2024 2:25 PM RUST Gilberto Benavidez MD LAB - CHEMISTRY [facility] Organization Address City/State/ZIP Co de Phone Number [facility] [address] [place] [address] * (ABNORMAL) CBC W AUTO DIFFERENTIAL (02/07/2024 5:16 AM COIL TAPER) Only the most recent of2 resultswithin the time period is included. WBC 14.7(H) 4.0 - 10.7 x10E9/L 02/07/2024 5:[address] [facility] RBC Count 3.95 3.90 - 5.20 x10E12/L 02/07/2024 5:[address] [facility] Hemoglobin 11.0(L) 11.9 - 15.8 g/dL 02/07/2024 5:[address] [facility] Hematocrit 33.8(L) 34.8 - 46.1 % 02/07/2024 5:[address] [facility] MCV 85.6 80.0 - 98.0 fL 02/07/2024 5:[address] [facility] MCH 27.8 26.7 - 33.6 pg 02/07/2024 5:[address] [facility] MCHC 32.5 31.7 - 36.3 g/dL 02/07/2024 5:[address] [facility] RDW-CV 17.0(H) 11.3 - 14.8 % 02/07/2024 5:[address] [facility] Platelet Count 187 150 - 420 x10E9/L 02/07/2024 5:[address] [facility] MPV 11.0 7.8 - 11.4 fL 02/07/2024 5:[address] [facility] Neutrophil % 82.6(H) 41.0 - 74.0 % 02/07/2024 5:[address] [facility] Lymphocyte % 8.2(L) 17.0 - 47.0 % 02/07/2024 5:[address] [facility] Monocyte % 8.2 3.0 - 11.0 % 02/07/2024 5:[address] [facility] Eosinophil % 0.2 0.0 - 7.0 % 02/07/2024 5:[address] [facility] Basophil % 0.1 0.0 - 1.6 % 02/07/2024 5:[address] [facility] Immature Granulocytes % 0.7 0.0 - 1.0 % 02/07/2024 5:[address] [facility] Neutrophil Absolute 12.15(H) 1.60 - 7.50 x10E9/L 02/07/2024 5:41 AM COIL TAPER [facility] Lymphocyte Absolute 1.21 1.00 - 4.40 x10E9/L 02/07/2024 5:41 AM COIL TAPER [facility] Monocyte Absolute 1.20(H) 0.15 - 1.00 x10E9/L 02/07/2024 5:[address] [facility] Eosinophil Absolute 0.03 0.00 - 0.60 x10E9/L 02/07/2024 5:[address] [facility] Basophil Absolute 0.02 0.00 - 0.13 x10E9/L 02/07/2024 5:[address] [facility] Blood BLOOD SPECIMEN / Unknown Lab Venipuncture / Unknown 02/07/2024 5:16 AM COIL TAPER 02/07/2024 5:21 AM RUST Gilberto Benavidez MD LAB - HEMATOLOGY ORD ERABLES Performing Organization Address City/State/[facility] Co de Phone Number [facility] [address] [place] [phone] * (ABNORMAL) BLOOD GASES CORD ART (ISTAT) (02/07/2024 12:40 AM COIL TAPER) pH Cord Arterial POCT 7.20 7.20 - 7.34 pH 02/07/2024 12:[address] [facility] pCO2 Cord Arterial POCT 65.2(H) 45 - 55 mm hg 02/07/2024 12:[address] [facility] pO2 Cord Arterial POCT 15 12 - 25 mm hg 02/07/2024 12:[address] [facility] HCO3 Cord Arterial POCT 25.7(H) 22 - 24 mmol/L 02/07/2024 12:[address] [facility] BE Cord Arterial POCT -4(L) -2.9 - 8.3 mmol/L 02/07/2024 12:[address] [facility] TCO2 Cord Arterial POCT 28 mmol/L 02/07/2024 12:49 AM COIL TAPER [facility] O2 Saturation Cord Art % Calc POCT 13 % 02/07/2024 12:49 AM COIL TAPER [facility] Site CORD ART 02/07/2024 12:49 AM COIL TAPER [facility] Sample iSTAT CORD ART 02/07/2024 12:49 AM COIL TAPER [facility] Blood CORD BLOOD SPECIMEN / Unknown 02/07/2024 12:40 AM COIL TAPER 02/07/2024 12:49 AM COIL TAPER Gilberto Benavidez MD LAB - POINT OF CARE ORDERABLES [facility] [address] [place] [address] * EPIDURAL BLOCK PERF (02/06/2024 4:56 PM COIL TAPER) Narrative Christianne Cameron APRN-CRNA - 02/06/2024 4:56 PM COIL TAPER Christianne Cameron APRN-CRNA 02/06/2024 5:06 PM Neuraxial [...] Time: 2 Staff: Anesthesia Provider: Christianne Cameron APRN-MOLDING MACHINE OPERATOR - performed the procedure Robert Oneal MD GENERAL ANESTHESIA O RDERABLES * SYPHILIS ANTIBODY CASCADING REFLEX (02/06/2024 2:53 PM COIL TAPER) Treponema pallidum Antibody Non Reactive Non Reactive 02/06/2024 3:42 PM COIL TAPER [facility] Comment: No Laboratory evidence of syphilis infection. Note: Circulating antibodies may be low or undetectable in early infection. If recent exposure is suspected, re-draw sample in 2-4 weeks and repeat testing. Blood BLOOD SPECIMEN / Unknown Venipuncture / Unknown 02/06/2024 2:53 PM COIL TAPER 02/06/2024 3:04 PM COIL TAPER Fatmata Waldron MD LAB - SEROLOGY ORDER CARINA Performing Organization Address [facility] Co de Phone Number [facility] [address] [place] [address] * TYPE + SCREEN PANEL (ALL [facility] except H) (02/06/2024 2:53 PM COIL TAPER) ABO Rh O POS 02/06/2024 3:40 PM COIL TAPER [facility] Comment:History checked. Antibody Screen NEG 3:40 PM COIL TAPER [facility] Blood Bank BLOOD SPECIMEN / Unknown Venipuncture / Unknown 02/06/2024 2:53 PM COIL TAPER 02/06/2024 3:04 PM COIL TAPER Fatmata Waldron MD LAB - BLOOD BANK ORD ERABLES Performing Organization Address City/[facility] Co de Phone Number [facility] [address] [place] [address] * CULTURE URINE (01/30/2024 1:43 PM COIL TAPER) Culture [facility] Comment: CULTURE, URINE, ROUTINE Micro Number: [id number] Test Status: Final Specimen Source: Urine, clean catch Specimen Quality: Adequate Result: No Growth Test Performed at: [address] [id number] MAMIE LIMON MD Urine URINE SPECIMEN OBTAINED BY CLEAN CATCH PROCEDURE / Unknown 01/30/2024 1:43 PM COIL TAPER 01/31/2024 4:38 AM COIL TAPER Leidy Valdivia MD LAB - M ICROBIOLOGY ORDERABLES [facility] [address] [place] [address] * URINALYSIS AUTO - POINT OF CARE (AMB) [facility] (01/30/2024 1:32 PM COIL TAPER) Only the most recent of2 resultswithin the time period is included. Glucose UA negative [facility] [address] Bilirubin UA POCT negative [facility] [address] Ketones UA POCT ++ [facility] [address] Comment:moderate Specific Evangeline UA 1.[address] [facility] [address] Blood Urine POCT negative [facility] [address] pH UA 6.0 [facility] [address] Protein UA negative [facility] [address] Urobilinogen UA normal [facility] [address] Nitrite UA negative [facility] [address] WBC UA + [facility] [address] Urine URINE / Unknown 01/30/2024 1 :32 PM COIL TAPER Leidy Valdivia MD LAB - P OINT OF CARE ORDERABLES [facility] [address] [place] [id number] [phone] * HIV-1 HIV-2 ANTIBODY + HIV P24 AG PANEL (12/01/2023 7:22 AM CDT) HIV Screen 4th Generation w Reflex NON-REACT SAMUEL NON-REACT SAMUEL [facility] Comment: HIV-1 antigen and HIV-1/HIV-2 antibodies were [...] purpose. For additional information please refer to http://education.Avacen/faq/OAD582 (This link is being provided for informational/ educational purposes only.) The performance of this assay has not been clinically validated in patients less than 2 years old. Test Performed at: [facility] [address] [place] [address] MAMIE LIMON MD Blood BLOOD SPECIMEN / Unknown 12/01/2023 7:22 AM CDT 12/01/2023 7:22 AM CDT Ruma Haider ENGINEERING LIBRARIAN-CITY BUS DRIVER LAB - CHEMISTR Y ORDERABLES [facility] [address] [place] [address] * HEPATITIS C ANTIBODY (08/22/2023 10:32 AM CDT) HCV Antibody Screen Non Reactive Non Reactive 08/22/2023 12:42 PM CDT [facility] Blood BLOOD SPECIMEN / Unknown Venipuncture / Unknown 08/22/2023 10:32 AM CDT 08/22/2023 12:00 PM CDT Narrative [facility] - 08/22/2023 12:42 PM CDT Non Reactive - Antibodies to Hepatitis C virus (HCV) were not detected, result does not exclude early acute HCV infection. Shira Andrade MD LAB - CHEMISTR Y ORDERABLES [facility] [address] [place] [address] * PAP THINPREP (02/07/1998 12:00 AM COIL TAPER) Prostatic Acid Phosphatase WNL @ Dr. Sims' s [facility] Cervical swab (specimen) PART OF UTERINE CERVIX / Unknown 02/07/1998 Narrative [facility] - 02/07/1998 12:00 AM COIL TAPER This external order was created through the Results Console. Historical Provider LAB - PATHOLOGY/C YTOLOGY ORDERABLES [facility] from Last 3 Months or Most Recently [...] 4:02 PM 12/18/2018 6:29 PM Care Teams Control Panel Operator Crude Unit Relationship Specialty Start Date End Date Julian Turcios DO [address] [address] PCP - General Family Medicine 05/27/20
--- OUTSIDE RECORDS SUMMARY | 2024-04-21 14:11 | XMS_ITS | Clinical Summary ---
Author Organization [facility] Address Formerly [facility] [place] [address] Care Team Providers Care Truck Service Technician Name Role Phone Unknown, Notinfile Primary Care Provider Unavail able Allergies Active Allergy Reactions Criticality Noted Date Comments Prednisone Swelling Medium 09/18/2022 Medications [id number] -epa-fish oil 400 mcg-35 mg -25 mg-5 mg tablet,chewable Take 2 tablets by mouth daily Active acetaminophen (TYLENOL) 500 mg tablet Take 2 tablets (1,000 mg total) by mouth every 6 (six) hours as needed for pain 60 tablet 01/18/2019 Active metroNIDAZOLE (FLAGYL) 500 mg tablet Take 1 tablet (500 mg total) by mouth 2 (two) times a day 14 tablet 03/17/2023 Active ibuprofen (ADVIL,MOTRIN) 400 mg tablet Take 1 tablet (400 mg total) by mouth every 6 (six) hours as needed for pain Active nitrofurantoin monohydrate (MACROBID) 100 mg capsule Take 1 capsule (100 mg total) by mouth 2 (two) times a day 10 capsule 09/20/2023 Active Active Problems Problem Noted Date Diagnosed Date S/p 01/17/2019 Overview (01/18/2019): # ID: Afebrile. No signs/symptoms of infection. [...] Formula feeding # Disposition: Continue routine care Suspected abnormality affecting management of mother 01/15/2019 Overview (01/15/2019): Physiologic amount noted on prior exams Threatened labor 01/07/2019 Bacterial vaginosis in 01/01/2019 Overview (01/15/2019): Last Assessment & Plan: Diagnosed during her most recent triage visit 12/26/18 Finish metronidazole History of PROM in p revious , currently 10/20/2018 Overview (01/15/2019): Hx PROM at 16 weeks in prior . Delivered at home. Last Assessment & Plan: Starting to lose mucus plug--Marian reports that she starts this about 6 weeks before she delivers. Deferred getting Tdap today. labor precautions emphasized Letter given for work restrictions Warrants weekly visits during this time of increased risk Anemia in 10/20/2018 Overview (01/15/2019): Likely iron deficiency. MCV low normal, was low in early . History of iron deficiency with low MCV. Receiving Venofer Last Assessment & Plan: Tolerate a Venofer infusion given earlier today Anxiety during 10/17/2018 Overview (01/15/2019): Hx depression and anxiety, treated with Zoloft and Effexor. Hx PTSD. Last Assessment & Plan: Reassess at visits Pyelonephritis affecting 09/04/2018 Overview (01/15/2019): In second trimester this . Hx pyelonephritis in previous pregnancies as well. Probable hx nephrolithiasis, no recent evaluation. UTI in 09/04/2018 Overview (01/15/2019): In first trimester, Klebsiella, treated. Hx multiple UTIs. Last Assessment & Plan: Concern for urinary tract infection today. Planned Instructed to discontinue Macrobid Prescription given for cephalexin treatment and then to continue prophylaxis with this antibiotic Follow-up urine Culture sent today History of nephrolithiasis 03/12/2014 Overview (01/15/2019): First , Stone passed Last Assessment & Plan: Complaints suspicious for renal stone Immunizations Immunization Administration Dates Next Due Tdap 09/18/2022,12/20/2018,07/08/2014 Surgical History Surgery Date Site/Laterality Comments DILATION AND CURETTAGE OF UTERUS 02/07/2015 - 02/07/2016 Medical History Medical History Date Comments Diabetes mellitus (HCC) Type 2 D M. Dx after of baby in 2016. Discontinued meds d/t hypoglycemia. Social History Tobacco Use Types Packs/Day Years [...] care, and heating? Not hard at all 09/20/2023 PRAPARE - Transportation Answer Date Re corded In the past 12 months, has l ack of transportation kept you from medical appointments or from getting medications? No 09/07 In the past 12 months, has l ack of transportation kept you from meetings, work, or from getting things needed for daily living? No 09/20/2023 Personal Safety Answer Date Recorded Have you ever been in or are you currently in a harmful physical or emotional relationship or is someone making you feel afraid or unsafe? Patient unable to answer 09/20/2023 Comments No Sex and Gender Information Value Date Recorded Sex Assigned at Not on file Legal Sex Female 9:08 PM PATIENT CARE REPRESENTATIVE Gender Identity Not on file Sexual Orientation Not on file Obstetrics History Para Term AB IAB SAB Ectopic Multiple Livin g Live Births 9 7 2 5 1 0 1 0 0 6 7 Date Outcome GA Total Labor Labor/2nd/3rd Weight Sex Type Anes PTL Sylvia A1 A5 Name Clin 2007 Term 38w 0d M Vag-S pont None Livin g Complications:None 2009 34w 0d F Vag-S pont None Y Livin g Complications:None 2010 34w 0d F Vag-S pont Y Livin g 2013 32w 0d D&C Neona aniya Demis e 2014 36w 0d F Vag-S pont Livin g 2016 SAB 2018 36w 6d 22h 24m 22h 10m/0h 11m/0h 03m 2.67 kg (5 lb 14.2 oz) M Vag-S pont Epidur al N Livin g 5 9 CONCEPCIÓN Allred,Queenie Palumbo MD Complications:None Delivery Location:[facility] Main [facility] ([facility] 58LD) 2020 Term 40w 0d Vag-S pont Livin g Complications:None Last Filed Vital Signs Vital Sign Reading Time Taken Comments Blood Pressure 130/74 09/20/2023 1:16 AM CDT Pulse 136 09/20/2023 1:49 AM CDT Temperature 36.7 C (98.1 F) 09/20/2023 1:49 AM CDT Respiratory Rate 18 09/20/2023 1:16 AM CDT Oxygen Saturation 97% 09/20/2023 1:49 AM CDT Inhaled Oxygen Concentration - - Weight 76.7 kg (169 lb) 09/20/2023 1:21 AM CDT Height 144.8 cm (4' 9 ) 09/20/2023 1:21 AM CDT Body Mass Index 36.57 09/20/2023 1:21 AM CDT Plan of Treatment Health Maintenance Due Date Last Done Comments Cervical Cancer Screening 1989 Depression Screening 1989 Hepatitis C Screening 1989 Varicella Vaccines (1 of 2 - 13+ 2-dose series) 2002 Hepatitis B Screening 08/01/2007 Regular Well Visit/Exam 18-64 08/01/2007 Influenza Vaccine (#1) 2023 DTaP/Tdap/Td Vaccine (4 - Td or Tdap) 09/18/2032 09/18/2022, 12/20/2018, 07/08/2014 HPV Vaccines Aged Out No longer eligi ble based on patient's age to complete this topic Pneumococcal vaccine <65 Aged Out No longer eligible based on patient's age to complete this topic Insurance IDPA [facility] CHOICE PLUS IDPA [facility] CHOICE PLUS [place] [id number] [facility] CHOICE PLUS IDPA Advance Directives For more information, please contact: [phone] * Full Code (Latest Code Status on File) Date Activated Date Inactivated Comments 01/17/2019 9:44 AM 01/19/2019 6:20 PM * Full Code Date Activated Date Inactivated Comments 01/16/2019 11:24 AM 01/17/2019 9:43 AM Full CPR in case of cardiopulmonary arrest Care Teams Truck Service Technician Relationship Specialty Start Date End Date Unknown, Notinfile PCP - General 01/14/19
--- OUTSIDE RECORDS SUMMARY | 2024-04-21 14:11 | XMS_ITS | Encounter Summary ---
Author Organization [facility] Address [address] [place] [address] Care Team Providers Care Hearse Driver Name Role Phone Trista Dejesus MD Primary Care Provider Unavailable None, Provider Primary Care Provider Unavaila ble Vin Sims MD Primary Care Provider [phone] Encounter Details Date Type Department Care Team (Late st Contact Info) Description 12/11/2016 [place] [address] Trista Dejesus MD Social History Tobacco Use Types Packs/Day Years Used Date Smoking Tobacco: Never Assessed Comments Unknown Sex and Gender Information Value Date Recorded Sex Assigned at Not on file Legal Sex Female 7:31 PM CDT Gender Identity Not on file Sexual Orientation Not on file documented as of this encounter Plan of Treatment Not on file documented as of this encounter Visit Diagnoses Not on filedocumented in this encounter Care Teams Hearse Driver Relationship Specialty Start Date End Date Trista Dejesus MD PCP - General 07/12/16 None, ProviderMD PCP - General 05/14/19 12/30/19 Vin Sims MD [address] [address] PCP - General OBGYN 12/31/19 documented as of this encounter
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
--- OUTSIDE RECORDS SUMMARY | 2024-04-21 14:11 | XMS_ITS | Referral Summary ---
Author Organization [facility] Address [facility] [place] [address] Care Team Providers Care Industrial Manufacturing Technician Name Role Phone Unknown, Notinfile Primary Care Provider Unavail able Allergies Active Allergy Reactions Criticality Noted Date Comments Prednisone Swelling Medium 09/18/2022 Medications [id number]-[id number] -epa-fish oil 400 mcg-35 mg -25 mg-5 [...] Immunization Administration Dates Next Due Tdap 09/18/2022,12/20/2018,07/08/2014 Social History Tobacco Use Types Packs/Day Years [...] on file Legal Sex Female 9:08 PM ALTERATIONS SEWER Gender Identity Not on file Sexual Orientation [...] 09/20/2023 1:21 AM CDT Plan of Treatment Not on file Insurance ID[employer] [facility] CHOICE [facility] HMO/PPO Address: [address] [address] [place] [address] [employer] [facility] CHOICE [facility] HMO/PPO Address: [address] [address] [place] [id number] [facility] CHOICE [facility] HMO/PPO Address: [address] [address] [place] [address] IDPA Advance Directives For more information, please contact: [phone] * Full Code (Latest Code Status on File) Date Activated Date Inactivated Comments 01/17/2019 9:44 AM 01/19/2019 6:20 PM * Full Code Date Activated Date Inactivated Comments 01/16/2019 11:24 AM 01/17/2019 9:43 AM Full CPR in case of cardiopulmonary arrest Care Teams Industrial Manufacturing Technician Relationship Specialty Start Date End Date Unknown, Notinfile PCP - General 01/14/19
--- OUTSIDE RECORDS SUMMARY | 2024-04-21 14:11 | XMS_ITS | Encounter Summary ---
Author Organization [facility] Address [address] [place] [address] Care Team Providers Care Marine Photographer Name Role Phone Vin Sims MD Primary Care Provider [phone] Encounter Details Date Type Department Care Team (Late st Contact Info) Description 03/16/2020 Hospital Follow-up Call [facility] [place] [address] Susie Espinosa, RN Social History Tobacco Use Types Packs/Day Years [...] on file Sexual Orientation Not on file COVID-19 Exposure Response Date Recorded In the last month, have you been in contact with someone who was confirmed or suspected to have Coronavirus / COVID-19? No / Unsure 03/08/2020 3:30 AM ORAL AND MAXILLOFACIAL SURGERY documented as of this encounter Functional Status * RETIRED Are you deaf or do you have serious difficulty hearing Answer Date of Assessment Author Status No 03/08/2020 4:25 AM ORAL AND MAXILLOFACIAL SURGERY Activ e * RETIRED Are you blind or do you have serious difficulty seeing, even when wearing glasses? Answer Date of Assessment Author Status No 03/08/2020 4:25 AM ORAL AND MAXILLOFACIAL SURGERY Activ e * Do you have serious difficulty walking or climbing stairs? Answer Date of Assessment Author Status No 03/08/2020 4:25 AM ORAL AND MAXILLOFACIAL SURGERY Krystin Carrillo RN A ctive * Do you have difficulty dressing or bathing? Answer Date of Assessment Author Status No 03/08/2020 4:25 AM ORAL AND MAXILLOFACIAL SURGERY Krystin Carrillo RN A ctive * Because of a physical, mental, or emotional condition, do you have difficulty doing errands alone such as visiting a doctor's office or shopping? Answer Date of Assessment Author Status No 03/08/2020 4:25 AM Krystin Aldana RN A ctive documented as of this encounter Mental Status * Because of a physical, mental, or emotional condition, do you have serious difficulty concentrating, remembering, or making decisions? Answer Entry Date Author Status No 03/08/2020 4:25 AM Krystin Aldana RN A ctive documented in this encounter Plan of Treatment Not on file documented as of this encounter Visit Diagnoses Not on filedocumented in this encounter Care Teams Marine Photographer Relationship Specialty Start Date End Date Vin Sims MD [address] [address] PCP - General OBGYN 12/31/19 documented as of this encounter
--- OUTSIDE RECORDS SUMMARY | 2024-04-21 14:11 | XMS_ITS | Encounter Summary ---
Author Organization [facility] Address [address] [facility] [place] [address] Care Team Providers Care Spinning Machine Tender Name Role Phone Vin Sims MD Primary Care Provider [phone] Julian Turcios DO Primary Care Provider [phone] Reason for Visit * Reason Onset Date Comments Update 12/27/2018 Encounter Details Date Type Department Care Team (Late st Contact Info) Description 12/27/2018 Telephone [facility] MATERNAL/ EVALUATION UNIT [address] [place] [address] Micaela Esteves, BEEF KILLER-ADULT NEUROLOGIST [address] [facility] [address] [place] [phone] Update Social History Tobacco Use Types Packs/Day Years Used Date Smoking Tobacco: Never Smokeless Tobacco: Never Alcohol Use Standard Drinks/Week Comments No 0 (1 standard drink = 0.6 oz pur e alcohol) Comments Yes Sex and Gender Information Value Date Recorded Sex Assigned at Female 04/04/2022 3:36 AM LENS GRINDING MACHINE OPERATOR Gender Identity Female 04/04/2022 3:36 AM LENS GRINDING MACHINE OPERATOR Sexual Orientation Straight 04/04/2022 3: 36 AM LENS GRINDING MACHINE OPERATOR documented as of this encounter Functional Status Functional Status Response Date of Assess ment Is person deaf or have serious hearing difficult y? No 12/26/2018 Is person blind or have serious difficulty seein g? No 12/26/2018 Does person have serious dif ficulty walking/climbing stairs? No 12/26/2018 Does person have difficulty dressing/bathing? No 12/26/2018 Does person have difficulty doing errands alone? No 12/26/2018 Cognitive Status Response Date of Assessm ent Does person have difficulty concentrating/remembering/making decisions? No 12/26/2018 documented as of this encounter Plan of Treatment Not on file documented as of this encounter Visit Diagnoses Not on filedocumented in this encounter Care Teams Spinning Machine Tender Relationship Specialty Start Date End Date Vin Sims MD [address] [facility] [address] [place] [address] PCP - General Obstetrics and Gynecology 09/03/1805/08 Julian Turcios DO [address] [facility] [address] [place] [address] PCP - General Family Medicine 05/27/20 documented as of this encounter
--- OUTSIDE RECORDS SUMMARY | 2024-04-21 14:11 | XMS_ITS | Encounter Summary ---
Author Organization [facility] Address [address] [facility] [place] [address] Care Team Providers Care Tax Services Manager Name Role Phone AdelJulian spangler Primary Care Provider [phone] Reason for Visit * Reason Onset Date Comments Order 12/05/2023 Encounter Details Date Type Department Care Team (Late st Contact Info) Description 12/05/2023 Telephone [facility] - GROCERY DEPARTMENT MANAGER [address] [place] [address] Ruma Haider APRN-PROFESSOR OF INDUSTRIAL TECHNOLOGY [address] [place] [address] Order Social History Tobacco Use Types Packs/Day Years [...] and heating? Not hard at all 08/22/2023 PHQ-2 Answer Date Recorded Patient Health Questionnaire-2 Score 0 12/09/2023 [facility] [place] of Occupat ional Health - Occupational Stress [...] place to sleep or slept in a penitentiary (including now)? No 08/22/2023 [place] Depression Scale Answer Date Recorded [place] Depression Scale Total 9 08/22/2023 The thought of harming myself has occurred to me . Never 08/22/2023 Education Answer Date Recorded What is the highest level of school you have completed or the highest degree you have received? Bachelor's degree (e.g., BA, AB, BS) 10/10/2019 Comments Yes Sex and Gender Information Value Date Recorded Sex Assigned at Female 04/04/2022 3:36 AM MARKET SURVEY REPRESENTATIVE Gender Identity Female 04/04/2022 3:36 AM MARKET SURVEY REPRESENTATIVE Sexual Orientation Straight 04/04/2022 3: 36 AM MARKET SURVEY REPRESENTATIVE documented as of this encounter Functional Status [...] encounter Miscellaneous Notes * Telephone Encounter - Juliane Dubon - 12/05/2023 1:29 PM CDT Fatmata from the infusion center is requesting that an over be put in the system for pts iron infusion.. Please contact CB# [phone] FX# [phone] do not fax after 4:30 documented in this encounter Plan of Treatment Not on file documented as of this encounter Visit Diagnoses Not on filedocumented in this encounter Care Teams Tax Services Manager Relationship Specialty Start Date End Date Julian Turcios DO [address] [address] PCP - General Family Medicine 05/27/20 documented as of this encounter
[2024-04-21 14:15] VITALS: BP 134/98; PULSE 104; RESP 20; TEMP 36.8; O2SAT 100
[2024-04-21 14:25] LABS: Basophils Percent Auto 0.3 % (0.2-1.2); Eosinophils Absolute Auto 0.1 K/mm3 (0-0.3); Eosinophils Percent Auto 1.8 % (0-4.4); Hematocrit 36.1 % (37.0-47.0); Immature Granulocyte Absolute 0.04 K/mm3 (0.00-0.031); Immature Granulocyte Percent A 0.6 % (0-0.5); Lymphocytes Percent Auto 36.1 % (18.3-44.2); Mean Corpuscular HGB Conc 33.2 g/dl (32-36); Mean Corpuscular Hemoglobin 29.4 pg (26-34); Mean Corpuscular Volume 88.5 fl (80-100); Mean Platelet Volume 10.1 fl (7.4-10.4); Monocytes Absolute Auto 0.5 K/mm3 (0.1-0.6); Monocytes Percent Auto 7.4 % (2.6-8.5); Neutrophils Absolute Auto 3.6 K/mm3 (1.3-6.7); Neutrophils Percent Auto 53.8 % (45.5-73.1); Platelet Count Result 287 k/mm3 (150-375); Red Blood Count 4.08 M/mm3 (4.2-5.4); Red Cell Distribution Width 12.7 % (11.5-14.5); White Blood Count 6.7 K/mm3 (4.5-10.0)
[2024-04-21 14:35] LABS: Alanine Aminotransferase 43 U/L (6-35); Albumin Level 4.5 g/dL (3.5-5.1); Alkaline Phosphatase 102 U/L (38-126); Anion Gap 15 mmol/L (4-12); Aspartate Amino Transferase 33 U/L (14-36); Bilirubin,Total 0.6 mg/dL (0.2-1.3); Blood Urea Nitrogen 6 mg/dL (7-17); Calcium 8.9 mg/dL (8.4-10.2); Carbon Dioxide 22 mmol/L (22-30); Chloride 103 mmol/L (98-107); Estimated Glomerular Filt Rate > 60; Glucose 109 mg/dL (65-110); Lipase 84 U/L (23-300); Potassium 3.5 mmol/L (3.4-5.0); Sodium 140 mmol/L (137-145)
[2024-04-21 14:47] LABS: Troponin I < 0.012 ng/mL (0.000-0.034)
[2024-04-21 14:48] LABS: Prothrombin Time 13.4 Seconds (11.1-14.7)
[2024-04-21 14:49] LABS: Partial Thromboplastin Time 28.6 Seconds (22.3-36.8)
[2024-04-21 15:18] VITALS: BP 123/86; PULSE 89; RESP 16; O2SAT 97
--- OUTSIDE RECORDS SUMMARY | 2024-04-21 16:31 | XMS_ITS | Encounter Summary ---
Author Organization [facility] Address [address] [facility] [place] [address] Care Team Providers Care Child Protective Investigator Name Role Phone Julian Turcios DO Primary Care Provider [phone] Reason for Visit * Reason Onset Date Comments Future Appointment 09/12/2023 Pt needs to r eschedule appts Encounter Details Date Type Department Care Team (Late st Contact Info) Description 09/12/2023 Telephone [facility] - Centralized Scheduling [address] [place] [address] Leidy Valdivia MD [address] [address] Future Appointment (Pt needs to [...] and heating? Not hard at all 08/22/2023 [facility] [place] of Occupat ional Health - Occupational Stress [...] place to sleep or slept in a senior care (including now)? No 08/22/2023 [place] Depression Scale Answer Date Recorded [place] Depression Scale Total 9 08/22/2023 The thought of harming myself has occurred to me . Never 08/22/2023 Education Answer Date Recorded What is the highest level of school you have completed or the highest degree you have received? Bachelor's degree (e.g., BA, AB, BS) 10/10/2019 Comments Yes Sex and Gender Information Value Date Recorded Sex Assigned at Female 04/04/2022 3:36 AM FINANCIAL WRITER Gender Identity Female 04/04/2022 3:36 AM FINANCIAL WRITER Sexual Orientation Straight 04/04/2022 3: 36 AM FINANCIAL WRITER documented as of this encounter Functional Status [...] whomever she spoke with scheduled her at [place]. Pt would like to continue being seen at [address] office. She was seen by [facility] back in 2019. I am unsure if we would see her there or general. Please assist. Patient Call Back Number: [phone] documented in this encounter Plan of Treatment Not on file documented as of this encounter Visit Diagnoses Not on filedocumented in this encounter Care Teams Child Protective Investigator Relationship Specialty Start Date End Date Julian Turcios DO [address] [address] PCP - General Family Medicine 05/27/20 documented as of this encounter
--- OUTSIDE RECORDS SUMMARY | 2024-04-21 16:31 | XMS_ITS | Patient Health Summary ---
Author Organization [facility] Address [address] [place] [address] Care Team Providers Care Safety Director Name Role Phone KarolinaJulian spangler Primary Care Provider [phone] Note from [facility],non-owned Affiliates and Associated Physician Practices is amultiple site organization consisting of ambulatory clinics and hospital sitesin [place], [place], [place] and [place]. This disclosure is being madepursuant to the Care Everywhere program and may not contain all information available regarding this patient. Last updated 17.[facility] Allergies * Prednisone(Anaphylaxis,Swelling) -High Criticality * [...] Recorded Patient Health Questionnaire-2 Score 0 12/23/2023 [facility] [place] of Occupat ional Health - Occupational Stress [...] place to sleep or slept in a prison (including now)? No 08/22/2023 Keystone Depression Scale Answer Date Recorded Key[place] Depression Scale Total 5 02/20/2024 The thought [...] [facility], were you homeless or living in a prison (including now)? No 02/09/2024 Education Answer Date Recorded What is the highest level of school you have completed or the highest degree you have received? Bachelor's degree (e.g., BA, AB, BS) 10/10/2019 Sex and Gender Information Value Date Recorded Sex Assigned at Female 04/04/2022 3:36 AM [facility] Gender Identity Female 04/04/2022 3:36 AM [facility] Sexual Orientation Straight 04/04/2022 3: 36 AM [facility] Last Filed Vital Signs Vital Sign Reading Time Taken Comments Blood Pressure 118/70 02/20/2024 11:29 AM [facility] Pulse 102 02/08/2024 7:55 AM [facility] Temperature 37.1 C (98.7 F) 02/09/2024 1:28 PM [facility] Respiratory Rate 18 02/09/2024 1:28 PM [facility] Oxygen Saturation 100% 02/09/2024 1:30 PM [facility] Inhaled Oxygen Concentration - - Weight 79.8 kg (176 lb) 02/20/2024 11:29 AM [facility] Height 149.9 cm (4' 11 ) 02/20/2024 11:29 AM [facility] Body Mass Index 35.55 02/20/2024 11:29 AM [facility] Procedures * CBC W/O DIFFERENTIAL(Performed 02/09/2024) Performed for Supervision of high risk in third trimester (HCC) * COMPREHENSIVE METABOLIC PANEL(Performed 02/09/2024) Performed for Supervision of high risk in third trimester ([facility]) * CBC W AUTO DIFFERENTIAL(Performed 02/07/2024) * COMPREHENSIVE METABOLIC PANEL(Performed 02/07/2024) * BLOOD GASES CORD ART (ISTAT)(Performed 02/07/2024) * NEURAXIAL BLOCK(Performed 02/06/2024) * TYPE + SCREEN PANEL(Performed 02/06/2024) * SYPHILIS ANTIBODY CASCADING REFLEX(Performed 02/06/2024) * CBC W AUTO DIFFERENTIAL(Performed 02/06/2024) * CULTURE URINE(Performed 01/30/2024) Performed for Supervision of high risk , antepartum ([facility]) * URINALYSIS AUTO - POINT OF CARE (AMB) [facility]U(Performed 01/30/2024) Performed for Supervision of high risk , antepartum ([facility]) * URINALYSIS AUTO - POINT OF CARE (AMB) [facility](Performed 01/23/2024) Performed for Supervision of high risk , antepartum ([facility]) * IMAGING/RADIOLOGY/XRAY RESULTS ORDER(Performed 01/18/2024) * NONSTRESS TEST(Performed 01/18/2024) * CULTURE STREP B(Performed 01/16/2024) * URINALYSIS AUTO - POINT OF CARE (AMB) [facility]U(Performed 01/16/2024) Performed for Supervision of high risk , antepartum ([facility]) * SONOGRAM - COMPLETE(Performed 01/16/2024) * CULTURE URINE(Performed 01/04/2024) Performed for Supervision of high risk , antepartum ([facility]) * URINALYSIS - POINT OF CARE(Performed 01/02/2024) Performed for Supervision of high risk , antepartum ([facility]) * NE SONO FU OR REPEAT(Performed 12/19/2023) Performed for Encounter for ultrasound to assess interval growth of fetus ([facility]), History of pretermdelivery, currently in third trimester ([facility]) * URINALYSIS - POINT OF CARE (AMB) [facility](Performed 12/19/2023) Performed for History of pyelonephritis during , Supervision of high risk , antepartum ([facility]) * GTT 1 HR (50G) GESTATIONAL SCREEN(Performed 12/07/2023) Performed for Glucose intolerance of ([facility]) * URINALYSIS - POINT OF CARE (AMB) [facility](Performed 12/05/2023) Performed for Supervision of high risk in third trimester ([facility]) * TREPONEMA PALLIDUM POS REFLX RPR(Performed 12/01/2023) Performed for Supervision of high risk in third trimester ([facility]) * IRON + TIBC + FERRITIN(Performed 12/01/2023) Performed for Supervision of high risk in third trimester ([facility]) * HIV-1 HIV-2 ANTIBODY + HIV P24 AG PANEL(Performed 12/01/2023) Performed for Supervision of high risk in third trimester ([facility]) * GTT 1 HR (50G) GESTATIONAL SCREEN(Performed 12/01/2023) Performed for Supervision of high risk in third trimester ([facility]) * CBC W AUTO DIFFERENTIAL(Performed 12/01/2023) Performed for Supervision of high risk in third trimester ([facility]) * NE SONO FU OR REPEAT(Performed 11/21/2023) Performed for Encounter for ultrasound to assess growth ([facility]), History of premature rupture of membranes (PPROM), Obesity (BMI 35.0-39.9 without comorbidity) * URINALYSIS - POINT OF CARE(Performed 11/21/2023) Performed for History of pyelonephritis during * IMAGING/RADIOLOGY/XRAY RESULTS ORDER(Performed 11/21/2023) * URINALYSIS - POINT OF CARE (AMB) [facility](Performed 11/04/2023) Performed for History of pyelonephritis during , Supervision of high risk , antepartum ([facility]) * SONOGRAM - COMPLETE(Performed 10/17/2023) Performed for BMI 31.0-31.9,adult, History of premature rupture of membranes (PROM) in previous , currently in second trimester ([facility]), Previous delivery, antepartum ([facility]), Supervision of high risk in second trimester ([facility]), Encounter for screening for cervical length ([facility]) * CULTURE URINE(Performed 10/04/2023) Performed for History of pyelonephritis during , History of UTI, Supervision of high risk , antepartum ([facility]) * URINALYSIS - POINT OF CARE (AMB) [facility](Performed 10/04/2023) Performed for History of pyelonephritis during , Supervision of high risk , antepartum ([facility]) * SONOGRAM - COMPLETE(Performed 10/04/2023) Performed for BMI 31.0-31.9,adult, History of premature rupture of membranes (PROM) in previous , currently in second trimester ([facility]) * SONOGRAM - COMPLETE(Performed 09/19/2023) Performed for Encounter for anatomic survey ([facility]), History of premature rupture of membranes (PROM) in previous , currently in second trimester ([facility]) * SONOGRAM - TRANSVAGINAL(Performed 09/05/2023) Performed for History of premature rupture of membranes (PROM) in previous , currently in second trimester ([facility]) * TRICHOMONAS VAGINALIS AMPLIFIED PROBE(Performed 08/22/2023) Performed for Supervision of high risk in second trimester ([facility]) * CHLAMYDIA + GC AMPLIFIED PROBE(Performed 08/22/2023) Performed for Supervision of high risk in second trimester ([facility]) * URINALYSIS - POCT (IP) BEAKER INTERFACE(Performed 08/22/2023) * TYPE + SCREEN PANEL(Performed 08/22/2023) Performed for Supervision of high risk in second trimester ([facility]) * RUBELLA ANTIBODY IGG(Performed 08/22/2023) Performed for Supervision of high risk in second trimester ([facility]) * SYPHILIS ANTIBODY CASCADING REFLEX(Performed 08/22/2023) Performed for Supervision of high risk in second trimester ([facility]) * CBC W AUTO DIFFERENTIAL(Performed 08/22/2023) Performed for Supervision of high risk in second trimester ([facility]) * HEPATITIS B SURFACE ANTIGEN W RFLX CONFIRMATION(Performed 08/22/2023) Performed for Supervision of high risk in second trimester ([facility]) * HEMOGLOBINOPATHY FRACTIONATION CASCADE(Performed 08/22/2023) Performed for Supervision of high risk in second trimester ([facility]) * URINE DRUG SCREEN IMMUNOASSAY(Performed 08/22/2023) Performed for Supervision of high risk in second trimester ([facility]) * HEPATITIS C ANTIBODY(Performed 08/22/2023) Performed for Supervision of high risk in second trimester ([facility]) * HIV-1 HIV-2 ANTIBODY + HIV P24 AG PANEL(Performed 08/22/2023) Performed for Supervision of high risk in second trimester ([facility]) * HEPATITIS B SURFACE ANTIGEN W RFLX CONFIRMATION(Performed 08/22/2023) Performed for Supervision of high risk in second trimester ([facility]) * CULTURE URINE(Performed 08/22/2023) Performed for Supervision of high risk in second trimester ([facility]) * SONOGRAM - COMPLETE(Performed 08/22/2023) Performed for Establish gestational age, ultrasound ([facility]) * ANEUPLOIDY SCREENING(Performed 08/22/2023) * IMAGING/RADIOLOGY/XRAY RESULTS ORDER(Performed 10/09/2019) * NE SONO COMPLETE(Performed 10/08/2019) Performed for History of delivery, currently in second trimester ([facility]), History ofpreterm premature rupture of membranes (PPROM), Encounter for screening for cervical length ([facility]), Encounter for anatomic survey ([facility]), Maternal obesity, antepartum, second trimester ([facility]) * NE ULTRASND,PREG UTER,TRANSVAGIN(Performed 10/08/2019) Performed for History of delivery, currently in second trimester ([facility]), History ofpreterm premature rupture of membranes (PPROM), Encounter for screening for cervical length ([facility]), Encounter for anatomic survey ([facility]), Maternal obesity, antepartum, second trimester ([facility]) * IMAGING/RADIOLOGY/XRAY RESULTS ORDER(Performed 10/08/2019) Performed for History of delivery, currently in second trimester ([facility]), History ofpreterm premature rupture of membranes (PPROM), Encounter for screening for cervical length ([facility]), Encounter for anatomic survey ([facility]), Maternal obesity, antepartum, second trimester ([facility]) * NONSTRESS TEST(Performed 01/14/2019) * URINE MICROSCOPIC ONLY REFLEX TO CULTURE(Performed 01/14/2019) Performed for Threatened labor ([facility]) * URINALYSIS REFLEX MICROSCOPIC REFLEX CULTURE(Performed 01/14/2019) Performed for Threatened labor ([facility]) * CULTURE URINE(Performed 01/14/2019) Performed for Threatened labor ([facility]) * NONSTRESS TEST(Performed 01/07/2019) Performed for Threatened labor ([facility]) * CULTURE URINE(Performed 01/01/2019) Performed for Urinary tract infection in mother during , antepartum ([facility]) * URINALYSIS - POINT OF CARE (AMB) [facility](Performed 01/01/2019) Performed for Encounter for supervision of other normal in third trimester ([facility]) * CULTURE STREP B(Performed 12/26/2018) Performed for Uterine contractions during ([facility]) * NONSTRESS TEST(Performed 12/26/2018) Performed for Uterine contractions during ([facility]) * URINE MICROSCOPIC ONLY REFLEX TO CULTURE(Performed 12/26/2018) Performed for Uterine contractions during ([facility]) * URINALYSIS REFLEX MICROSCOPIC REFLEX CULTURE(Performed 12/26/2018) Performed for Uterine contractions during ([facility]) * IMAGING/RADIOLOGY/XRAY RESULTS ORDER(Performed 12/21/2018) * NE SONO FU OR REPEAT(Performed 12/20/2018) Performed for History of premature rupture of membranes (PROM) in previous , currently in third trimester ([facility]), Previous delivery, antepartum ([facility]), Uterine size date discrepancy , third trimester ([facility]), Encounter for ultrasound to check growth ([facility]) * URINALYSIS - POINT OF CARE (AMB) [facility](Performed 12/20/2018) Performed for Antepartum anemia ([facility]) * NONSTRESS TEST(Performed 12/18/2018) Performed for Abdominal pain, unspecified abdominal location * CHLAMYDIA + GC AMPLIFIED PROBE(Performed 12/18/2018) Performed for Abdominal pain, unspecified abdominal location * TRICHOMONAS RAPID TEST(Performed 12/18/2018) Performed for Abdominal pain, unspecified abdominal location * IMAGING/RADIOLOGY/XRAY RESULTS ORDER(Performed 12/07/2018) * NE OB US, LIMITED, FETUS(S)(Performed 12/06/2018) Performed for History of premature rupture of membranes (PROM) in previous , currently in third trimester ([facility]), Previous delivery, antepartum ([facility]), Uterine size date discrepancy , third trimester ([facility]) * URINALYSIS - POINT OF CARE (AMB) [facility](Performed 12/06/2018) Performed for , unspecified gestational age ([facility]), Pyelonephritis affecting in second trimester ([facility]) * IMAGING/RADIOLOGY/XRAY RESULTS ORDER(Performed 11/27/2018) * IRON + TIBC + FERRITIN(Performed 11/23/2018) Performed for Anemia affecting in second trimester ([facility]) * CULTURE URINE(Performed 11/23/2018) Performed for , unspecified gestational age ([facility]), Abnormal urinalysis * NE SONO FU OR REPEAT(Performed 11/23/2018) Performed for Hx of PTL ( labor), current , second trimester ([facility]), Previous delivery, antepartum ([facility]), Suspected abnormality affecting management of mother, single or unspecified fetus ([facility]), Encounter for ultrasound to assess growth ([facility]) * URINALYSIS - POINT OF CARE (AMB) [facility](Performed 11/23/2018) Performed for , unspecified gestational age (HCC), Pyelonephritis affecting in second trimester ([facility]) * IMAGING/RADIOLOGY/XRAY RESULTS ORDER(Performed 11/09/2018) * NE ULTRASND,PREG UTER,TRANSVAGIN(Performed 11/08/2018) Performed for Hx of PTL ( labor), current , second trimester (HCC), Previous delivery, antepartum (HCC), Prior loss, antepartum, second trimester (HCC) * NE OB US, LIMITED, FETUS(S)(Performed 11/08/2018) Performed for Hx of PTL ( labor), current , second trimester (HCC), Previous delivery, antepartum (HCC), Prior loss, antepartum, second trimester (HCC) * URINALYSIS - POINT OF CARE (AMB) [facility]U(Performed 11/08/2018) Performed for , unspecified gestational age (HCC), Pyelonephritis affecting in second trimester ([facility]) * IMAGING/RADIOLOGY/XRAY RESULTS ORDER(Performed 10/27/2018) * IMAGING/RADIOLOGY/XRAY RESULTS ORDER(Performed 10/26/2018) * NE ULTRASND,PREG UTER,TRANSVAGIN(Performed 10/25/2018) Performed for , unspecified gestational age (HCC), Hx of PTL ( labor), current , second trimester (HCC), History of delivery, currently ([facility]), Encounter for ultrasound to check growth ([facility]) * NE SONO FU OR REPEAT(Performed 10/25/2018) Performed for , unspecified gestational age (HCC), Hx of PTL ( labor), current , second trimester (HCC), History of delivery, currently ([facility]), Encounter for ultrasound to check growth ([facility]) * HIV-1 HIV-2 ANTIBODY + HIV P24 AG PANEL(Performed 10/25/2018) * SYPHILIS ANTIBODY CASCADING REFLEX(Performed 10/25/2018) Performed for Supervision of high risk in second trimester ([facility]) * CBC W AUTO DIFFERENTIAL(Performed 10/25/2018) Performed for Supervision of high risk in second trimester ([facility]), Anemia during pregnancyin second trimester ([facility]) * GLUCOSE CHALLENGE(Performed 10/25/2018) Performed for Supervision of high risk in second trimester ([facility]), Screening for diabetes mellitus (DM) * URINALYSIS - POINT OF CARE (AMB) [facility](Performed 10/25/2018) Performed for , unspecified gestational age ([facility]), Pyelonephritis affecting in second trimester ([facility]) * IMAGING/RADIOLOGY/XRAY RESULTS ORDER(Performed 10/18/2018) Performed for Previous delivery, antepartum ([facility]), History of premature rupture of membranes (PROM) in previous , currently in second trimester ([facility]) * NE ULTRASND,PREG UTER,TRANSVAGIN(Performed 10/17/2018) Performed for Hx of PTL ( labor), current , second trimester ([facility]), Screening, , for risk of pre-term labor ([facility]) * CULTURE URINE(Performed 10/17/2018) Performed for Supervision of high risk in second trimester ([facility]), Pyelonephritis affecting in second trimester ([facility]), History of nephrolithiasis * URINALYSIS REFLEX MICROSCOPIC REFLEX CULTURE(Performed 10/17/2018) Performed for History of delivery, currently ([facility]) * URINALYSIS - POINT OF CARE (AMB) [facility](Performed 10/17/2018) Performed for , unspecified gestational age ([facility]), Pyelonephritis affecting in second trimester ([facility]) * IMAGING/RADIOLOGY/XRAY RESULTS ORDER(Performed 10/12/2018) * IMAGING/RADIOLOGY/XRAY RESULTS ORDER(Performed 10/05/2018) * IMAGING/RADIOLOGY/XRAY RESULTS ORDER(Performed 10/05/2018) * NE ULTRASND,PREG UTER,TRANSVAGIN(Performed 10/04/2018) Performed for Encounter for screening for cervical length ([facility]), Hx of PTL ( labor), current , second trimester ([facility]) * NE OB US, LIMITED, FETUS(S)(Performed 10/04/2018) Performed for Encounter for screening for cervical length ([facility]), Hx of PTL ( labor), current , second trimester ([facility]) * URINALYSIS - POINT OF CARE (AMB) [facility](Performed 10/04/2018) Performed for Supervision of high risk in second trimester ([facility]) * IMAGING/RADIOLOGY/XRAY RESULTS ORDER(Performed 09/15/2018) * NE ULTRASND,PREG UTER,TRANSVAGIN(Performed 09/14/2018) Performed for History of delivery, currently ([facility]), Pyelonephritis affecting in second trimester ([facility]) * US RETROPERITONEAL COMPLETE(Performed 09/04/2018) Performed for Fever, unspecified fever cause * TYPE + SCREEN PANEL(Performed 09/03/2018) * TYPE + SCREEN PANEL(Performed 09/03/2018) Performed for Supervision of high risk in second trimester ([facility]) * CBC W AUTO DIFFERENTIAL(Performed 09/03/2018) Performed for Supervision of high risk in second trimester ([facility]) * URINE MICROSCOPIC ONLY REFLEX TO CULTURE(Performed 09/03/2018) Performed for Fever, unspecified fever cause * URINALYSIS REFLEX MICROSCOPIC REFLEX CULTURE(Performed 09/03/2018) Performed for Fever, unspecified fever cause * CULTURE URINE(Performed 09/03/2018) Performed for Fever, unspecified fever cause * IMAGING/RADIOLOGY/XRAY RESULTS ORDER(Performed 09/01/2018) * NE ULTRASND,PREG UTER,TRANSVAGIN(Performed 08/31/2018) Performed for History of delivery, currently ([facility]), Screening, , for riskof pre-term labor ([facility]) * URINALYSIS - POINT OF CARE (AMB) [facility](Performed 08/31/2018) Performed for , unspecified gestational age ([facility]) * IMAGING/RADIOLOGY/XRAY RESULTS ORDER(Performed 08/24/2018) * IMAGING/RADIOLOGY/XRAY RESULTS ORDER(Performed 08/23/2018) * CULTURE URINE(Performed 08/21/2018) Performed for Pain with urination, 15 weeks gestation of ([facility]) * NE ULTRASND,PREG UTER,TRANSVAGIN(Performed 08/21/2018) Performed for History of delivery, currently ([facility]), Spotting affecting in second trimester ([facility]) * NE OB US, LIMITED, FETUS(S)(Performed 08/21/2018) Performed for History of delivery, currently ([facility]), Spotting affecting in second trimester ([facility]) * NE ULTRASOUND, UTERUS(Performed 08/07/2018) Performed for Pelvic pain in antepartum period in first trimester ([facility]), Prior loss in first trimester, antepartum ([facility]), High risk due to history of labor in first trimester ([facility]) * URINALYSIS - POINT OF CARE (AMB) [...] Supervision of high-risk , third trimester ([facility]) * CBC W AUTO DIFFERENTIAL(Performed 08/16/2014) Performed for Supervision of high-risk , third trimester ([facility]) * URINE MICROSCOPIC ONLY(Performed 08/16/2014) Performed for Supervision of high-risk , third trimester ([facility]) * URINALYSIS REFLEX TO MICROSCOPIC NO CULTURE(Performed 08/16/2014) Performed for Supervision of high-risk , third trimester ([facility]) * CULTURE URINE(Performed 08/16/2014) Performed for Supervision of high-risk , third trimester ([facility]) * CULTURE URINE(Performed 08/16/2014) * URINALYSIS - POINT OF CARE (AMB) [facility](Performed 08/16/2014) * URINALYSIS - POINT OF CARE (AMB) [facility](Performed 08/06/2014) * URINALYSIS REFLEX MICROSCOPIC REFLEX CULTURE(Performed 08/04/2014) Performed for Supervision of high-risk , third trimester ([facility]) * CULTURE URINE(Performed 08/04/2014) Performed for Supervision of high-risk , third trimester ([facility]) * CULTURE STREP B(Performed 07/30/2014) * URINALYSIS [...] (ABNORMAL) CBC W/O DIFFERENTIAL (02/09/2024 1:56 PM [facility]) WBC 8.6 4.0 - 10.7 x10E9/L 02/09/2024 3:20 PM [facility] RBC Count 4.24 3.90 - 5.20 x10E12/L 02/09/2024 3:20 PM [facility] Hemoglobin 12.0 11.9 - 15.8 g/dL 02/09/2024 3:20 PM [facility] Hematocrit 36.5 34.8 - 46.1 % 02/09/2024 3:20 PM [facility] MCV 86.1 80.0 - 98.0 fL 02/09/2024 3:20 PM [facility] MCH 28.3 26.7 - 33.6 pg 02/09/2024 3:20 PM [facility] MCHC 32.9 31.7 - 36.3 g/dL 02/09/2024 3:20 PM [facility] RDW-CV 17.2(H) 11.3 - 14.8 % 02/09/2024 3:20 PM [facility] Platelet Count 255 150 - 420 x10E9/L 02/09/2024 3:20 PM [facility] MPV 11.5(H) 7.8 - 11.4 fL 02/09/2024 3:20 PM [facility] Blood BLOOD SPECIMEN / Unknown Venipuncture / Unknown 02/09/2024 1:56 PM [facility] 02/09/2024 2:25 PM [facility] Gilberto Benavidez MD LAB - HEMATOLOGY ORD ERABLES Performing Organization Address City/State/[place] [facility] Co de Phone Number [facility] [address] [place] [address] * (ABNORMAL) COMPREHENSIVE METABOLIC PANEL (02/09/2024 1:56 PM HAND CANDY DIPPER) Only the most recent of2 resultswithin the time period is included. [facility] Glucose 67(L) 70 - 99 mg/dL 02/09/2024 3:01 PM [facility] Sodium 137 136 - 145 mmol/L 02/09/2024 3:01 PM [facility] Potassium 3.8 3.5 - 5.1 mmol/L 02/09/2024 3:01 PM [facility] Chloride 109(H) 98 - 107 mmol/L 02/09/2024 3:01 PM [facility] CO2 20(L) 22 - 29 mmol/L 02/09/2024 3:01 PM [facility] Calcium 8.9 8.4 - 10.4 mg/dL 02/09/2024 3:01 PM [facility] Anion Gap 8 6 - 16 mmol/L 02/09/2024 3:01 PM [facility] BUN 7 5.3 - 18.7 mg/dL 02/09/2024 3:01 PM [facility] Creatinine 0.58 0.57 - 1.11 mg/dL 02/09/2024 3:01 PM [facility] Alkaline Phosphatase 88 40 - 150 U/L 02/09/2024 3:01 PM [facility] ALT 11 0 - 55 U/L 02/09/2024 3:01 PM [facility] AST 14 5 - 34 U/L 02/09/2024 3:01 PM [facility] Protein Total 6.8 6.4 - 8.3 gm/dL 02/09/2024 3:01 PM [facility] Albumin 2.6(L) 3.4 - 5.0 gm/dL 02/09/2024 3:01 PM [facility] Bilirubin Total 0.3 0.2 - 1.2 mg/dL 02/09/2024 3:01 PM [facility] eGFR by CKD-EPI >90 >=90 mL/min/1.7 3 m2 02/09/2024 3:01 PM [facility] Blood BLOOD SPECIMEN / Unknown Venipuncture / Unknown 02/09/2024 1:56 PM HAND CANDY DIPPER 02/09/2024 2:25 PM [facility] Gilberto Benavidez MD LAB - CHEMISTRY COLT[place] [employer]ICE [facility] Organization Address City/State/ZIP Co de Phone Number [facility] [address] [place] [address] * (ABNORMAL) CBC W AUTO DIFFERENTIAL (02/07/2024 5:16 AM [facility]) Only the most recent of13 resultswithin the time period is included. WBC 14.7(H) 4.0 - 10.7 x10E9/L 02/07/2024 5:41 AM [facility] RBC Count 3.95 3.90 - 5.20 x10E12/L 02/07/2024 5:41 AM [facility] Hemoglobin 11.0(L) 11.9 - 15.8 g/dL 02/07/2024 5:41 AM [facility] Hematocrit 33.8(L) 34.8 - 46.1 % 02/07/2024 5:41 AM [facility] MCV 85.6 80.0 - 98.0 fL 02/07/2024 5:41 AM [facility] MCH 27.8 26.7 - 33.6 pg 02/07/2024 5:41 AM [facility] MCHC 32.5 31.7 - 36.3 g/dL 02/07/2024 5:41 AM [facility] RDW-CV 17.0(H) 11.3 - 14.8 % 02/07/2024 5:41 AM [facility] Platelet Count 187 150 - 420 x10E9/L 02/07/2024 5:41 AM [facility] MPV 11.0 7.8 - 11.4 fL 02/07/2024 5:41 AM [facility] Neutrophil % 82.6(H) 41.0 - 74.0 % 02/07/2024 5:41 AM [facility] Lymphocyte % 8.2(L) 17.0 - 47.0 % 02/07/2024 5:41 AM [facility] Monocyte % 8.2 3.0 - 11.0 % 02/07/2024 5:41 AM [facility] Eosinophil % 0.2 0.0 - 7.0 % 02/07/2024 5:41 AM [facility] Basophil % 0.1 0.0 - 1.6 % 02/07/2024 5:41 AM [facility] Immature Granulocytes % 0.7 0.0 - 1.0 % 02/07/2024 5:41 AM [facility] Neutrophil Absolute 12.15(H) 1.60 - 7.50 x10E9/L 02/07/2024 5:41 AM [facility] Lymphocyte Absolute 1.21 1.00 - 4.40 x10E9/L 02/07/2024 5:41 AM HAND CANDY DIPPER [facility] Monocyte Absolute 1.20(H) 0.15 - 1.00 x10E9/L 02/07/2024 5:41 AM [facility] Eosinophil Absolute 0.03 0.00 - 0.60 x10E9/L 02/07/2024 5:41 AM HAND CANDY DIPPER [facility] Basophil Absolute 0.02 0.00 - 0.13 x10E9/L 02/07/2024 5:41 AM [facility] Blood BLOOD SPECIMEN / Unknown Lab Venipuncture / Unknown 02/07/2024 5:16 AM HAND CANDY DIPPER 02/07/2024 5:21 AM [facility] Gilberto Benavidez MD LAB - HEMATOLOGY ORD ERABLES [facility] [address] [place] [address] * (ABNORMAL) BLOOD GASES CORD ART (ISTAT) (02/07/2024 12:40 AM HAND CANDY DIPPER) Only the most recent of2 resultswithin the time period is included. pH Cord Arterial POCT 7.20 7.20 - 7.34 pH 02/07/2024 12:49 AM [facility] pCO2 Cord Arterial POCT 65.2(H) 45 - 55 mm hg 02/07/2024 12:49 AM [facility] pO2 Cord Arterial POCT 15 12 - 25 mm hg 02/07/2024 12:49 AM [facility] HCO3 Cord Arterial POCT 25.7(H) 22 - 24 mmol/L 02/07/2024 12:49 AM [facility] BE Cord Arterial POCT -4(L) -2.9 - 8.3 mmol/L 02/07/2024 12:49 AM [facility] TCO2 Cord Arterial POCT 28 mmol/L 02/07/2024 12:49 AM [facility] O2 Saturation Cord Art % Calc POCT 13 % 02/07/2024 12:49 AM [facility] Site CORD ART 02/07/2024 12:49 AM [facility] Sample iSTAT CORD ART 02/07/2024 12:49 AM [facility] Blood CORD BLOOD SPECIMEN / Unknown 02/07/2024 12:40 AM HAND CANDY DIPPER 02/07/2024 12:49 AM [facility] DIPPER Gilberto Benavidez MD LAB - POINT OF CARE ORDERABLES [facility] [address] [place] [address] * EPIDURAL BLOCK PERF (02/06/2024 4:56 PM HAND CANDY DIPPER) Narrative Christianne Cameron APRN-TRAFFIC COUNTER - 02/06/2024 4:56 PM HAND CANDY DIPPER Christianne Cameron APRN-CRNA 02/06/2024 5:06 PM Neuraxial [...] Time: 2 Staff: Anesthesia Provider: Christianne Cameron APRN-TRAFFIC COUNTER - performed the procedure Robert Oneal MD GENERAL ANESTHESIA O RDERABLES * SYPHILIS ANTIBODY CASCADING REFLEX (02/06/2024 2:53 PM HAND CANDY DIPPER) Only the most recent of3 resultswithin the time period is included. Treponema pallidum Antibody Non Reactive Non Reactive 02/06/2024 3:42 PM HAND CANDY DIPPER [facility] Comment: No Laboratory evidence of syphilis infection. Note: Circulating antibodies may be low or undetectable in early infection. If recent exposure is suspected, re-draw sample in 2-4 weeks and repeat testing. Blood BLOOD SPECIMEN / Unknown Venipuncture / Unknown 02/06/2024 2:53 PM HAND CANDY DIPPER 02/06/2024 3:04 PM HAND CANDY DIPPER Fatmata Waldron MD LAB - SEROLOGY ORDER CARINA Performing Organization Address City/[facility] Co de Phone Number [facility] [address] [place] [address] * TYPE + SCREEN PANEL (ALL [facility] except [facility]) (02/06/2024 2:53 PM HAND CANDY DIPPER) Only the most recent of6 resultswithin the time period is included. ABO Rh O POS 02/06/2024 3:40 PM HAND CANDY DIPPER [facility] B[facility]OD BANK LAB Comment:History checked. Antibody Screen NEG 3:40 PM HAND CANDY DIPPER [facility] B[facility] BANK LAB Blood Bank BLOOD SPECIMEN / Unknown Venipuncture / Unknown 02/06/2024 2:53 PM HAND CANDY DIPPER 02/06/2024 3:04 PM HAND CANDY DIPPER Fatmata Waldron MD LAB - BLOOD BANK ORD ERABLES Performing Organization Address [facility] Co de Phone Number [facility] BLOOD [facility] [address] [place] [address] * CULTURE URINE (01/30/2024 1:43 PM HAND CANDY DIPPER) Only the most recent of16 resultswithin the time period is included. Culture [facility] Comment: CULTURE, URINE, ROUTINE Micro Number: [id number] Test Status: Final Specimen Source: Urine, clean catch Specimen Quality: Adequate Result: No Growth Test Performed at: [facility] [id number] [address] MAMIE LIMON MD Urine URINE SPECIMEN OBTAINED BY CLEAN CATCH PROCEDURE / Unknown 01/30/2024 1:43 PM HAND CANDY DIPPER 01/31/2024 4:38 AM HAND CANDY DIPPER Leidy Valdivia MD LAB - M ICROBIOLOGY ORDERABLES [address] [address] * URINALYSIS AUTO - POINT OF CARE (AMB) [facility] (01/30/2024 1:32 PM HAND CANDY DIPPER) Only the most recent of3 resultswithin the time period is included. Glucose UA negative [facility] [address] Bilirubin UA POCT negative [facility] [address] Ketones UA POCT ++ [facility] [address] Comment:moderate Specific Reading UA 1.[address] [facility] [address] Blood Urine POCT negative [facility] [address] pH UA 6.[address] [facility] [address] Protein UA negative [facility] [address] Urobilinogen UA normal [facility] [address] Nitrite UA negative [facility] [address] WBC UA + [facility] [address] Urine URINE / Unknown 01/30/2024 1 :32 PM HAND CANDY DIPPER Leidy Valdivia MD LAB - P OINT OF CARE ORDERABLES [facility] [address] [place] [address], [facility] [phone] * IMAGING RADIOLOGY XRAY RESULTS ORDER (01/18/2024 7:19 PM HAND CANDY DIPPER) Only the most recent of21 resultswithin the time period is included. Anatomical Region Laterality Modality Other Narrative 01/18/2024 7:19 PM HAND CANDY DIPPER Ordered by an unspecified provider. Scanned Document IMAGING * NONSTRESS TEST (01/18/2024 5:23 AM HAND CANDY DIPPER) Narrative Kamron Polanco MD - 01/18/2024 5:23 AM HAND CANDY DIPPER Arlin Shields MD 01/18/2024 6:47 AM Name: [...] OTHER INFORMATION Julia Buchanan RN Non-Stress Test [facility] Patient Name: Marian Haney LMP: No LMP recorded (exact date). Patient is . Gestational Age: 36w2d as of 01/18/2024 Estimated Date of Delivery: 02/13/24 Indications: Contractions NST date: 01/18/2024 NST duration: >20 mins Interpretation: Baseline: 135 beats/minute moderate variability +Reactive Contractions: none, uterine irritability present Decelerations: none Accelerations: present Impression and Plan: FWB reassuring, continue monitoring as scheduled. Arlin Shields MD 01/18/2024 6:47 AM Kamron Polanco MD OB GYNE ORDERABLES * CULTURE STREP B (01/16/2024 1:38 PM HAND CANDY DIPPER) Only the most recent of3 resultswithin the time period is included. Pathologist [facility] Culture [facility] Comment: STREPTOCOCCUS, GROUP B CULTURE Micro Number: [id number] Test Status: Final Specimen Source: Anorectum/vagina Specimen Quality: Adequate Result: No group B Streptococcus isolated Note per CDC guidelines optimal recovery is achieved by swabbing both the lower vagina and rectum (through the anal sphincter). Test Performed at: [facility] [id number] [place] [address] MAMIE LIMON MD 01/16/2024 1:38 PM HAND CANDY DIPPER 01/17/2024 5:13 AM HAND CANDY DIPPER Vin Castellano MD LAB - MICROBIOLOGY O RDERABLES [address] [address] * SONOGRAM - COMPLETE (01/16/2024 11:30 AM HAND CANDY DIPPER) Only the most recent of5 resultswithin the time period is included. Linked Results Indication ======== Anatomy completed Anemia G2: delivery -35w6d G3: delivery -35w0d G5: SAB -16w5d G6: deilvery -36w6d Reports history of cerclage in G4 Obesity, Class II History ====== OB History 9. Para 6 [id number] Maternal Assessment = Physical Exam Height 150 [...] 6 lb 1 oz EFW by Hadlock ([id number]) Head / Face / Neck Biometry: Cephalic [...] ultrasound as clinically indicated Coding ====== Procedures 99759: [place] [address]: Biophysical Profile W/O NST [facility] PACS Anatomical Region Laterality Modality Other 01/16/2024 11:3 0 AM HAND CANDY DIPPER Ann Umana MD [facility] ORDERABLES * (ABNORMAL) URINALYSIS - POINT OF CARE (01/02/2024 1:10 PM HAND CANDY DIPPER) Only the most recent of2 resultswithin the [...] Negative [facility] [address] Specific Reading UA POCT 1.015(A) 1.002 - 1.[address] [facility] [address] Ketone UA neg Negative [facility] [address] Bilirubin UA POCT positive Negative [facility] [address] Glucose UA neg Negative [facility] [address] Urine URINE / Unknown 01/02/2024 1 :10 PM HAND CANDY DIPPER Kamron Polanco MD LAB - POINT OF CARE ORDERABLES [facility] [address] [place] [address], [facility] [phone] * NE SONO FU OR REPEAT (12/19/2023 2:42 PM HAND CANDY DIPPER) Linked Results Indication ======== Growth Anatomy completed Anemia Hx PTD - In G2 at 35w6d - In G3 at 35w0d - In G5 at 16w5d - In G6 at 36w6d Reports history of cerclage in G4 History ====== OB History 9. Para 6 [id number] Maternal Assessment = Physical Exam Height 150 [...] 4 lb 3 oz EFW by Hadlock ([id number]) Head / Face / Neck Biometry: Cephalic [...] than 35. She also has a follow-up [facility] visit today. Single, live intrauterine at 32w [...] in your patient's care. Coding ====== Procedures [id number]: US Preg Uterus Follow Up [facility] PACS 12/19/2023 2:42 PM HAND CANDY DIPPER Ruma Haider SUPERVISOR CEREAL-USER EXPERIENCE DESIGNER PROCEDURE/HATTIE R SURGICAL ORDERABLES [facility] PACS * URINALYSIS - POINT OF CARE (AMB) [facility] (12/19/2023 1:19 PM HAND CANDY DIPPER) Only the most recent of23 resultswithin the time period is included. Specific Reading UA 1.[address] [facility] [address] pH [...] URINE / Unknown 12/19/2023 1 :19 PM HAND CANDY DIPPER Andie Milligan MD LAB - POINT OF CARE ORDERABLES [address] [place] [address], [facility] [phone] * GTT 1 HR (50G) GESTATIONAL SCREEN (12/07/2023 2:47 PM CDT) Only the most recent of2 resultswithin the time period is included. [facility] Glucose Gestational Screen 105 <140 mg/dL [facility] Comment: REPORT COMMENT: FASTING:NO Test Performed at: [place] [address] MAMIE LIMON MD Blood BLOOD SPECIMEN / Unknown 12/07/2023 2:47 PM CDT 12/07/2023 2:49 PM CDT Ruma Haider SUPERVISOR CEREAL-USER EXPERIENCE DESIGNER LAB - CHEMISTR Y ORDERABLES Performing Organization Address City/[facility]/ZIP Co de Phone Number [facility] [address] [place] [address] * HIV-1 HIV-2 ANTIBODY + HIV P24 AG PANEL (12/01/2023 7:22 AM CDT) Only the most recent of3 resultswithin the time period is included. [facility] HIV Screen 4th Generation w Reflex NON-REACT [...] purpose. For additional information please refer to http://education.Staples/faq/GIM586 (This link is being provided for informational/ educational purposes only.) The performance of this assay has not been clinically validated in patients less than 2 years old. Test Performed at: [place] [address] MAMIE LIMON MD Blood BLOOD SPECIMEN / Unknown 12/01/2023 7:22 AM CDT 12/01/2023 7:22 AM CDT Ruma Haider [facility] LAB - CHEMISTR Y ORDERABLES Performing Organization Address [facility] Co de Phone Number [facility] [phone] [place] [address] * TREPONEMA PALLIDUM POS REFLX RPR (12/01/2023 [...] high. REPORT COMMENT: FASTING:YES Test Performed at: [facility] [place] [address] [place] [address] ALEJO Oscar [place] Blood BLOOD SPECIMEN / Unknown 12/01/2023 7:22 AM CDT 12/01/2023 7:22 AM CDT Ruma Haider [facility] LAB - SEROLOGY ORDERABLES Performing Organization Address [facility] Co de Phone Number [facility] [phone] [place] [address] * (ABNORMAL) IRON + TIBC + FERRITIN (12/01/2023 7:22 AM CDT) Only the most recent of2 resultswithin the time period is included. Iron 42 40 - 190 mcg/dL [facility] TIBC 551(H) 250 - 450 mcg/dL (calc) [facility] % Saturation 8(L) 16 - 45 % (calc) [facility] Ferritin 5(L) 16 - 154 ng/mL [facility] Comment: Test Performed at: [facility] [address] [facility] [place] [address] MAMIE LIMON MD Blood BLOOD SPECIMEN / Unknown 12/01/2023 7:22 AM CDT 12/01/2023 7:22 AM CDT Ruma Haider APRN-USER EXPERIENCE DESIGNER LAB - CHEMISTR Y ORDERABLES [facility] [address] [place] [address] * NE SONO FU OR REPEAT (11/21/2023 11:55 AM CDT) Narrative Sisi Amaya - 11/21/2023 11:55 AM CDT Sisi Amaya 11/21/2023 11:55 AM Documentation in [employer] Ann Umana MD PROCEDURE/MINOR SURG ICAL ORDERABLES * SONOGRAM - TRANSVAGINAL (09/05/2023 8:51 AM CDT) Anatomical Region Laterality Modality Other 09/05/2023 8:51 AM CDT Narrative 09/05/2023 9:33 AM CDT [facility] PHONE: FAX: Pat. Name: MARIAN HANEY Pat. No: [id number] Study Date: 09/05/2023 8:51am , Age: 06 1990, 33 Pregnancies: 9, Para 7316 Height: 59 in Weight: 170 lb LMP: 05/09/2023 GA by LMP: 17w0d GA by Base: 17w0d CATALINO: 02/13/2024 GA Selected: 17w0d (From [facility]) CATALINO: 02/13/2024 Referring MD: MD Chris, [facility] [employer] Operator: Yelena Lockwood RDMS CPT4: 54207,16090 BMI: 34.33 Hist/Ind: Cervical Length Hx of [...] <Electronic Signature> 09/05/2023 09:32am Kamron Polanco MD [facility] ORDERABLES * TRICHOMONAS VAGINALIS AMPLIFIED PROBE (08/22/2023 11:00 AM CDT) Trichomonas vaginalis Amplified Probe Negative Negative 08/22/2023 8:26 PM CDT [facility] MICROBIOLOGY Microbiology URINE / Unknown Collection / Unknown 08/22/2023 11:00 AM CDT 08/22/2023 11:30 AM CDT Narrative [facility]CRO[facility] - 08/22/2023 8:26 PM CDT This test was developed and its performance characteristics determined by the [facility] Microbiology Laboratory, [facility]. Urine specimens tested by the [facility] [place] have not been cleared or approved by [...] Andrade MD LAB - MICROBIO LOGY ORDERABLES [facility] MICROBIOLOGY [address] [place], [place] [address], [facility] [phone] * CHLAMYDIA + GC AMPLIFIED PROBE (08/22/2023 11:00 AM CDT) Only the most recent of2 resultswithin the time period is included. Chlamydia Amplified Probe Negative Negative 08/22/2023 8:26 PM CDT [facility] MICROBIOLOG[facility] GC Amplified Probe Negative Negative 08/22/2023 8:26 PM CDT [facility] MICROBIOLOGY Microbiology URINE / Unknown Collection / Unknown 08/22/2023 11:00 AM CDT 08/22/2023 11:30 AM CDT Narrative [facility] MICROBIOLOG[facility] - 08/22/2023 8:26 PM CDT Results based on detection/no detection of ribosomal RNA by amplified method. Shira Andrade MD LAB - MICROBIO LOGY ORDERABLES [facility] [address] [place] [address], [facility] [phone] * URINALYSIS - POCT (IP) BEAKER INTERFACE (08/22/2023 10:42 AM CDT) Color UA POCT Yellow Straw, Yellow, Dark Yellow, Light Yellow 08/22/2023 10:43 AM CDT [facility] LABORATORY Clarity UA POCT Clear Clear 4 10:43 AM CDT [facility] LAB[facility] Specific Reading UA POCT 1.020 1.005 - 1.030 08/22/2023 10:43 AM CDT [facility] pH UA POCT 7.0 5.0 - 8.0 pH 08/22/2023 10:43 AM CDT [facility] Protein UA POCT Negative Negative 4 10:43 AM CDT [facility] Blood UA POCT Negative Negative 08/22/2023 10:43 AM CDT [facility] Leukocyte UA POCT Negative Negative 08/22/2023 10:43 AM CDT [facility] Nitrite UA POCT Negative Negative 10:43 AM CDT [facility] Glucose UA POCT Negative Negative 4 10:43 AM CDT [facility] Ketone UA POCT Negative Negative 08/22/2023 10:43 AM CDT [facility] Bilirubin UA POCT Negative Negative 08/22/2023 10:43 AM CDT [facility] Urobilinogen UA POCT 1.0 0.1 - 1.0 EU/dL 08/22/2023 10:43 AM CDT [facility] LABORAT[facility] Urine URINE / Unknown 08/22/2023 1 0:42 AM CDT 08/22/2023 10:43 AM CDT Leidy Valdivia MD LAB - P OINT OF CARE ORDERABLES [facility]ORATORY [address] [place] [address] * HEMOGLOBINOPATHY FRACTIONATION CASCADE (08/22/2023 10:32 AM CDT) Hemoglobin F 0.0 0.0 - 2.0 % 08/23/2023 5:08 PM CDT [facility] ([facility]) Hemoglobin A 97.5 96.4 - 98.8 % 08/23/2023 5:08 PM CDT [facility] ([facility]) Hemoglobin A2 2.5 1.8 - 3.2 % 08/23/2023 5:08 PM CDT [facility] ([facility]) Hemoglobin S 0.0 0.0 % 08/23/2023 5:08 PM CDT [facility] ([facility]) Interpretation Comment 08/23/2023 5:08 PM CDT [facility] Comment: Normal hemoglobin present; no hemoglobin variant or beta thalassemia identified. Note: Alpha thalassemia may not be detected by the Hgb Fractionation [place] panel. If alpha thalassemia is suspected, [facility] offers Alpha-Thalassemia DNA Analysis (#[id number]). Blood BLOOD SPECIMEN / Unknown Venipuncture / Unknown 08/22/2023 10:32 AM CDT 08/22/2023 12:00 PM CDT Narrative [facility] ([facility]) - 08/23/2023 5:08 PM CDT Performed at: - [address] [id number] Professor Of Biological Sciences: Severino Blackwood PhD, Phone: [phone] Shira Andrade MD LAB - CHEMISTR Y ORDERABLES [facility] ([facility]) [address] [place] [address] * RUBELLA ANTIBODY IGG (08/22/2023 10:32 AM CDT) Only the most recent of3 resultswithin the time period is included. Pathologist [facility] Rubella Antibody 1.23 Immune >0.99 index 08/23/2023 11:11 AM CDT [facility] ([facility]) Comment: Non-immune <0.90 Equivocal 0.90 - 0.99 Immune >0.99 Blood BLOOD SPECIMEN / Unknown Venipuncture / Unknown 08/22/2023 10:32 AM CDT 08/22/2023 12:00 PM CDT Narrative [facility] ([facility]) - 08/23/2023 11:11 AM CDT Performed at: 01 - [facility] [address], [place] [id number] Professor Of Biological Sciences: Severino Blackwood PhD, Phone: [phone] Shira Andrade MD LAB - SEROLOGY ORDERABLES [facility] ([facility]) [address] [place] [address] * URINE DRUG SCREEN IMMUNOASSAY (08/22/2023 10:32 AM CDT) [facility] Amphetamines Screen Urine Not detected Not detected 08/22/2023 12:02 PM CDT [facility] Barbiturates Screen Urine Not detected Not detected 08/22/2023 12:02 PM CDT [facility] Benzodiazepines Screen Urine Not detected Not detected 08/22/2023 12:02 PM CDT [facility] Cannabinoids Screen Urine Not detected Not detected 08/22/2023 12:02 PM CDT [facility] Cocaine Screen Urine Not detected Not detected 08/22/2023 12:02 PM CDT [facility] Fentanyl Urine Not detected Not detected 08/22/2023 12:02 PM CDT [facility] Methadone Screen Urine Not detected Not detected 08/22/2023 12:02 PM CDT [facility] Opiate Screen Urine Not detected Not detected 08/22/2023 12:02 PM CDT [facility] Phencyclidine Screen Urine Not detected Not detected 08/22/2023 12:02 PM CDT [facility] Urine URINE / Unknown Collection / Unknown 08/22/2023 10:32 AM CDT 08/22/2023 11:30 AM CDT Narrative [facility] - 08/22/2023 12:02 PM CDT This [...] URINE CH EMISTRY ORDERABLES Performing Organization Address [facility] Co de Phone Number [facility] [address] [place] [phone] * HEPATITIS B SURFACE ANTIGEN W RFLX CONFIRMATION (08/22/2023 10:32 AM CDT) Only the most recent of2 resultswithin the time period is included. HBsAg Non Reactive Non Reactive 08/22/2023 12:44 PM CDT [facility] Blood BLOOD SPECIMEN / Unknown Venipuncture / Unknown 08/22/2023 10:32 AM CDT 08/22/2023 11:59 AM CDT Shira Andrade MD LAB - CHEMISTR Y ORDERABLES Performing Organization Address [facility] Co de Phone Number [facility] [address] [place] [address] * HEPATITIS C ANTIBODY (08/22/2023 10:32 AM CDT) HCV Antibody Screen Non Reactive Non Reactive 08/22/2023 12:42 PM CDT [facility] Blood BLOOD SPECIMEN / Unknown Venipuncture / Unknown 08/22/2023 10:32 AM CDT 08/22/2023 12:00 PM CDT Narrative [facility] - 08/22/2023 12:42 PM CDT Non Reactive - Antibodies to Hepatitis C virus (HCV) were not detected, result does not exclude early acute HCV infection. Shira Andrade MD LAB - CHEMISTR Y ORDERABLES Performing Organization Address City/[facility]/ZIP Co de Phone Number [facility] [address] [place] [phone] * ANEUPLOIDY SCREENING (08/22/2023) Trisomy 21 Low Risk Trisomy 18 Low Risk Trisomy 13 Low Risk Monosomy X Low Risk Triploidy/[place] shing Twin NIPT Low Risk Blood BLOOD SPECIMEN / Unknown 08/22/2023 Samanta Gracia RN - 09/03/2023 LOW RISK Predicted Sex: female Fraction: 4.4% Panorama - Elbert Screen Hard copy results available in Media. Shira Andrade MD LAB - CHEMISTR Y ORDERABLES * NE ULTRASND,PREG UTER,TRANSVAGIN, NE SONO COMPLETE (10/08/2019 10:30 AM CDT) Narrative Andreina Disla RDPA - 10/08/2019 10:30 AM CDT Andreina Disla RDMS 10/08/2019 10:30 AM Documentation in digisonics. Samanta Dai MD PROCEDURE/MINOR TOSHA GICAL ORDERABLES * NONSTRESS TEST (01/14/2019 1:24 AM HAND CANDY DIPPER) Narrative Arthur Thorpe MD - 01/14/2019 1:24 AM HAND CANDY DIPPER Fatmata Waldron MD 01/14/2019 3:24 AM Name: [...] Moderate Decelerations: Variable Accelerations: Yes OTHER INFORMATION Chaisdy Jackson RN PGY1 PHARMACY SALESPERSON Progress Note Assessment/ Non-Stress Test Baseline: 155 beats/minute moderate variability Reactive Contractions: irregular Decelerations: none Patient declined further cEFM Fatmata Waldron MD 01/14/2019 3:23 AM Fatmata Waldron MD OB GYNE ORDERABLES * (ABNORMAL) URINE MICROSCOPIC ONLY REFLEX TO CULTURE (01/14/2019 1:06 AM HAND CANDY DIPPER) Only the most recent of5 resultswithin the time period is included. Reflex Status Culture to follow 01/14/2019 1:35 AM [facility] RBC UA 21-50(A) None Seen, 0-2, 3-5 # /hpf 01/14/2019 1:35 AM [facility] WBC UA >100(A) None Seen, 0-5 # /hpf 01/14/2019 1:35 AM [facility] Bacteria UA 3+(A) None Seen 01/14/2019 1:35 AM [facility] Squamous Epithelial Cells 3-5 None Seen, 0-2, 3-5 /hpf 01/14/2019 1:35 AM [facility] Mucus UA 3+ /LPF 01/14/2019 1:35 AM [facility] Urine URINE SPECIMEN OBTAINED BY CLEAN CATCH PROCEDURE / Unknown Collection / Unknown 01/14/2019 1:06 AM HAND CANDY DIPPER 01/14/2019 1:23 AM HAND CANDY DIPPER Narrative [facility] - 01/14/2019 1:35 AM HAND CANDY DIPPER Fatmata Waldron MD LAB - URINALYSIS ORD ERABLES [facility] [address] [place] [address] * (ABNORMAL) URINALYSIS REFLEX MICROSCOPIC REFLEX CULTURE (01/14/2019 1:06 AM HAND CANDY DIPPER) Only the most recent of8 resultswithin the time period is included. Color UA Yellow Straw, Yellow 01/14/2019 1:34 AM [facility] Clarity UA Cloudy(A) Clear 01/14/2019 1:34 AM [facility] Glucose UA Negative Negative 01/14/2019 1:34 AM [facility] Bilirubin UA Negative Negative 01/14/2019 1:34 AM [facility] Ketone UA 2+(A) Negative 01/14/2019 1:34 AM [facility] Specific Reading UA 1.016 1.005 - 1.030 01/14/2019 1:34 AM [facility] Blood UA 2+(A) Negative 01/14/2019 1:34 AM [facility] pH UA 6.0 5.0 - 8.0 pH 01/14/2019 1:34 AM [facility] Protein UA 2+(A) Negative 01/14/2019 1:34 AM HAND CANDY DIPPER [facility] Urobilinogen UA 2.0(A) Negative mg/dL 01/14/2019 1:34 AM HAND CANDY DIPPER [facility] Nitrite UA Positive(A) Negative 01/14/2019 1:34 AM HAND CANDY DIPPER [facility] Leukocyte UA 2+(A) Negative 01/14/2019 1:34 AM HAND CANDY DIPPER [facility] Urine Microscopy Urine microscopy to follow 01/14/2019 1:34 AM [facility] Reflex Status Culture to follow 01/14/2019 1:34 AM [facility] Urine URINE SPECIMEN OBTAINED BY CLEAN CATCH PROCEDURE / Unknown Collection / Unknown 01/14/2019 1:06 AM HAND CANDY DIPPER 01/14/2019 1:23 AM HAND CANDY DIPPER Narrative [facility] - 01/14/2019 1:34 AM HAND CANDY DIPPER Fatmata Waldron MD LAB - URINALYSIS ORD ERABLES Performing Organization Address City/State/[facility] Co de Phone Number [facility] [address] [place] [address] * NONSTRESS TEST (01/07/2019 7:07 PM HAND CANDY DIPPER) Leidy Hobson MD - 01/07/2019 7:07 PM HAND CANDY DIPPER Fatmata Waldron MD 01/07/2019 7:22 PM Name: Marian Haney Date of : 1990 Today's Date: 01/07/2019 NST RESULTS (SIMS) OBJECTIVE FINDINGS Temp: 97.6 F (36.4 C), , Resp: 18, BP: 121/76 NST Indication(s): labor Uterine Irritability: Yes Contractions: Not present OBJECTIVE FINDINGS Movement: Present Monitoring Mode: External Baseline: 145 BPM Variability: Moderate Decelerations: None Accelerations: Yes OTHER INFORMATION Mona Eli RN PGY1 PHARMACY SALESPERSON Progress Note Assessment/ Non-Stress Test Baseline: 145 beats/minute moderate variability Reactive Contractions: Irritability Decelerations: none Fatmata Waldron MD 01/07/2019 7:22 PM Fatmata Waldron MD OB GYNE ORDERABLES * NONSTRESS TEST (12/26/2018 1:17 PM HAND CANDY DIPPER) Narrative Carmen Jansen MD - 12/26/2018 1:17 PM HAND CANDY DIPPER Odalys Saunders RN 12/26/2018 1:18 PM Name: [...] Lisa Teran MD OB GYNE ORDERABLES * NE SONO FU OR REPEAT (12/20/2018 10:43 AM HAND CANDY DIPPER) Narrative Andreina Disla RDPA - 12/20/2018 10:43 AM HAND CANDY DIPPER Andreina Disla RDMS 12/20/2018 10:43 AM Documentation in digisonics. Kamron Polanco MD PROCEDURE/MINOR SURG ICAL ORDERABLES * NONSTRESS TEST (12/18/2018 5:00 PM HAND CANDY DIPPER) Narrative Pako Boggs MD - 12/18/2018 5:00 PM HAND CANDY DIPPER Fatmata Waldron MD 12/19/2018 7:31 AM Name: [...] Yes OTHER INFORMATION Samanta Burger RN PGY1 PHARMACY SALESPERSON Progress Note Assessment/ Non-Stress Test Baseline: 155 beats/minute moderate variability Reactive Contractions: rare Decelerations: none Fatmata Waldron MD 12/19/2018 7:31 AM Fatmata Waldron MD OB GYNE ORDERABLES * TRICHOMONAS RAPID TEST (12/18/2018 4:28 PM HAND CANDY DIPPER) Trichomonas Rapid Test Negative Negative 12/18/2018 4:50 PM HAND CANDY DIPPER [facility] Microbiology VAGINAL SWAB / Unknown Collection / Unknown 12/18/2018 4:28 PM HAND CANDY DIPPER 12/18/2018 4:34 PM HAND CANDY DIPPER Fatmata Waldron MD LAB - MICROBIOLOGY O RDERABLES [facility] [address] [place] [address] * NE OB US, LIMITED, FETUS(S) (12/06/2018 12:17 PM CDT) Narrative Stefanie Ann - 12/06/2018 12:17 PM CDT Stefanie Ann 12/06/2018 12:17 PM Documentation in digisonics Kamron Polanco MD PROCEDURE/MINOR SURG ICAL ORDERABLES * NE SONO FU OR REPEAT (11/23/2018 2:16 PM CDT) Narrative Stefanie Ann - 11/23/2018 2:16 PM CDT Stefanie Ann 11/23/2018 2:16 PM Documentation in digisonics Carmen Jansen MD PROCEDURE/MINOR S URGICAL ORDERABLES * NE OB US, LIMITED, FETUS(S), NE ULTRASND,PREG UTER,TRANSVAGIN (11/08/2018 11:27 AM CDT) Narrative Gianna Hand - 11/08/2018 11:27 AM CDT Gianna Hand 11/08/2018 11:28 AM Documentation in digisonics. Joe Guardado MD PROCEDURE/MINOR SURG ICAL ORDERABLES * NE SONO FU OR REPEAT, NE ULTRASND,PREG UTER,TRANSVAGIN (10/25/2018 10:57 AM CDT) Narrative Stefanie Ann - 10/25/2018 10:57 AM CDT Stefanie Ann 10/25/2018 10:57 AM Documentation in digisonics Kamron Polanco MD PROCEDURE/MINOR SURG ICAL ORDERABLES * GLUCOSE CHALLENGE (10/25/2018 10:20 AM CDT) Only the most recent of2 resultswithin the time period is included. GTT 1Hr 101 <135 mg/dL [facility] Comment: Test Performed at: [facility] [id number] [place] [address] DIETER JENSEN DO,MPH Blood BLOOD SPECIMEN / Unknown 10/25/2018 10:20 AM CDT 10/25/2018 10:21 AM CDT Andie Milligan MD LAB - CHEMISTR Y ORDERABLES [facility] [address] [place] [address] * NE ULTRASND,PREG UTER,TRANSVAGIN (10/17/2018 10:25 AM CDT) Narrative Stefanie Ann - 10/17/2018 10:25 AM CDT Stefanie Ann 10/17/2018 10:25 AM Documentation in digisonics Andie Milligan MD PROCEDURE/HATTIE R SURGICAL ORDERABLES * NE OB US, LIMITED, FETUS(S), NE ULTRASND,PREG UTER,TRANSVAGIN (10/04/2018 1:58 PM CDT) Narrative Andreina Disla RDMS - 10/04/2018 1:58 PM CDT Andreina Disla RDMS 10/04/2018 1:58 PM Documentation in digisonics. Pako Boggs MD PROCEDURE/HATTIE R SURGICAL ORDERABLES * NE ULTRASND,PREG UTER,TRANSVAGIN (09/14/2018 4:01 PM CDT) Narrative [...] AM Maira Culver MD US ORDERABLES * NE ULTRASND,PREG UTER,TRANSVAGIN (08/31/2018 10:17 AM CDT) Narrative Stefanie Ann - 08/31/2018 10:17 AM CDT Stefanie Ann 08/31/2018 10:17 AM Documentation in digisonics Arthur Thorpe MD PROCEDURE/MINOR SURG ICAL ORDERABLES * NE OB US, LIMITED, FETUS(S), NE ULTRASND,PREG UTER,TRANSVAGIN (08/21/2018 3:34 PM CDT) Narrative Denice Francis - 08/21/2018 3:34 PM CDT Denice Francis 08/21/2018 3:34 PM Ready in Digisonics. Denice Francis Kamron Polanoc MD PROCEDURE/MINOR SURG ICAL ORDERABLES * NE ULTRASOUND, UTERUS (08/07/2018 12:32 PM CDT) Narrative [...] (07/26/2018) Blood BLOOD SPECIMEN / Unknown 07/26/2018 Gildardos Pili Gross - 07/26/2018 Non reactive Vin [...] There is no osseous destruction. Max Hathaway APRN-USER EXPERIENCE DESIGNER DIAGNOSTIC IMAGI NG ORDERABLES * XR LUMBAR [...] There is no osseous destruction. Max Hathaway APRN-USER EXPERIENCE DESIGNER DIAGNOSTIC IMAGI NG ORDERABLES * CT CERVICAL [...] destruction in the cervical spine Max Hathaway [facility] CT ORDERABLES * CT HEAD NON CONTRAST [...] No acute intracranial process. Max Olivas Griselda BLUNTN-USER EXPERIENCE DESIGNER CT ORDERABLES * HCG URINE QUALITATIVE - POINT OF CARE (IP) (10/10/2014 3:38 PM CDT) Only the most recent of2 resultswithin the time period is included. HCG Qual Urine Negative Negative [facility] POCT TESTING QC Verified Yes Yes [facility] POC T TESTING Urine specimen (specimen) URINE / Unknown 10/10/2014 3:38 PM CDT Max Hathaway SUPERVISOR CEREAL-USER EXPERIENCE DESIGNER LAB - POINT OF C ARE ORDERABLES [facility] POCT TESTING [address] [employer] [phone] * GROSS + MICRO EXAM (STL) (08/17/2014 8:29 AM CDT) Case Report Surgical Pathology Report Case: [id number] Authorizing Provider: Lorena Stein MD Collected: 08/17/2014 08:29 AM Ordering Location: [facility] LDR Received: 08/19/2014 08:29 AM Pathologist: Hellen Mccauley MD Specimen: Placenta 3rd Trimester 08/21/2014 4:04 PM CDT [facility] Final Diagnosis 1. Placenta, delivery: -- Third trimester placenta -- Three vessel umbilical cord -- Unremarkable membranes /[facility] 08/21/2014 4:04 PM CDT [facility] Clinical History High risk 08/21/2014 4:04 PM CDT [facility] Gross Description Received fixed in formalin [...] placental disc reveals no gross focal lesions. Simulation Tech sections are submitted as follows: A1 - umbilical cord and membranes, A2-A3 - placental disc. LW/lv 08/21/2014 4:04 PM CDT [facility] Microscopic Description Sections of the umbilical cord show three vessels with no evidence of vasculitis or funisitis. Sections of the membranes show unremarkable histology and are free of inflammation. Meconium is not seen. Sections of the placental disc show mature chorionic villi with no evidence of hemorrhage or infarction. MC/[facility] 08/21/2014 4:04 PM CDT [facility] Pathology/Cytolo gy ENTIRE PLACENTA / Unknown 08/17/2014 8:29 AM CDT 08/19/2014 8:29 AM CDT Lorena Stein MD LAB - PATHOLOGY/CYTO LOGY ORDERABLES Performing Organization Address City/[facility]/ZIP Co de Phone Number [facility] [address] [place] [address] * HIV-1 HIV-2 ANTIBODY + HIV P24 AG RAPID PNL (08/16/2014 10:13 PM CDT) HIV1/2 Ab + P24 Ag Rapid Non Reactive Non Reactive 08/16/2014 10:55 PM CDT [facility] Blood BLOOD SPECIMEN / Unknown Venipuncture / Unknown 08/16/2014 10:13 PM CDT 08/16/2014 10:20 PM CDT Narrative [facility] - 08/16/2014 10:55 PM CDT No Laboratory evidence of HIV infection. Elaina Lama MD LAB - SEROLOGY ORDER CARINA Performing Organization Address City/[facility]/ZIP Co de Phone Number [facility] [address] [place], [place] [phone] * RPR (08/16/2014 10:13 PM CDT) Pathologist [facility] RPR Non Reactive Non Reactive 08/17/2014 10:40 AM CDT [facility] Blood BLOOD SPECIMEN / Unknown Venipuncture / Unknown 08/16/2014 10:13 PM CDT 08/16/2014 10:20 PM CDT Elaina Lama MD LAB - CHEMISTRY [employer] Performing Organization Address City/[facility]/ZIP Co de Phone Number [facility] [address] [place] [phone] * (ABNORMAL) BLOOD GASES CORD AIDEN (ISTAT) (08/16/2014 8:08 PM CDT) [facility] pH Cord Venous POCT 7.35 7.28 - 7.40 pH 08/16/2014 8:24 PM CDT [facility] pCO2 Cord Venous POCT 38 35 - 45 mmHg 08/16/2014 8:24 PM CDT [facility] pO2 Cord Venous POCT 28 22 - 33 mmHg 08/16/2014 8:24 PM CDT [facility] HCO3 Cord Arterial POCT 21(L) 22 - 24 mmol/L 08/16/2014 8:24 PM CDT [facility] BE Cord Venous POCT Calc -4 -6 - 2 mmol/L 08/16/2014 8:24 PM CDT [facility] TCO2 Cord Venous POCT 22 22 - 30 mmol/L 08/16/2014 8:24 PM CDT [facility] O2 Saturation % Cord Venous Calc POCT 49 % 08/16/2014 8:24 PM CDT [facility] Site CORD AIDEN 08/16/2014 8:24 PM CDT [facility] Sample iSTAT CORD V 08/16/2014 8:24 PM CDT [facility] Blood CORD BLOOD SPECIMEN / Unknown 08/16/2014 8:08 PM CDT 08/16/2014 8:24 PM CDT Kamron Polanco MD LAB - POINT OF CARE ORDERABLES Performing Organization Address City/[facility]/ZIP Co de Phone Number [facility] [address] [place], [place] [phone] * BLOOD TYPE VERIFICATION (08/16/2014 2:55 PM CDT) ABO O 08/16/2014 3:25 PM CDT [facility] Rh Type Positive 08/16/2014 3:25 PM CDT [facility] Miscellaneous samples (specimen) BLOOD SPECIMEN / Unknown Venipuncture / Unknown 08/16/2014 2:55 PM CDT 08/16/2014 3:09 PM CDT Kamron Polanco MD LAB - BLOOD BANK ORD ERABLES [facility] [address] [place], [place] [id number] [place] [address] * CULTURE BLOOD (08/16/2014 2:49 PM CDT) Only the most recent of2 resultswithin the time period is included. Pathologist [facility] Culture No Growth OLIVIA 08/23/2014 5:00 AM CDT [facility] MICROBI[facility] Blood PERIPHERAL BLOOD / Unknown Venipuncture / Unknown 08/16/2014 2:49 PM CDT 08/16/2014 3:10 PM CDT Maria Elena Sweeney MD LAB - MICROBIOLOGY ORDERABLES [facility] [address] [phone] * (ABNORMAL) URINALYSIS ROUTINE AUTO (08/16/2014 2:14 PM CDT) Color UA Yellow Straw, Yellow, Dark Yellow 08/16/2014 2:56 PM CDT [facility] Clarity UA Cloudy 08/16/2014 2:56 PM CDT [facility] Specific Reading UA 1.018 1.005 - 1.030 08/16/2014 2:56 PM CDT [facility] pH UA 7.0 5.0 - 8.0 pH 08/16/2014 2:56 PM CDT [facility] Protein UA Negative Negative 08/16/2014 2:56 PM CDT [facility] Blood UA 1+(A) Negative 08/16/2014 2:56 PM CDT [facility] Leukocyte UA 3+(A) Negative 08/16/2014 2:56 PM CDT [facility] Nitrite UA Positive(A) Negative 08/16/2014 2:56 PM CDT [facility] Glucose UA Negative Negative 08/16/2014 2:56 PM CDT [facility] Ketone UA Negative Negative 08/16/2014 2:56 PM CDT [facility] Bilirubin UA Negative Negative 08/16/2014 2:56 PM CDT [facility] Urobilinogen UA 1.0 0.1 - 1.0 EU/dL 08/16/2014 2:56 PM CDT [facility] WBC UA Auto 50-100(A) 0-2, 2-5 # /hpf 08/16/2014 2:56 PM CDT [facility] RBC UA Auto 10-20(A) 0-2, 2-5 # /hpf 08/16/2014 2:56 PM CDT [facility] Epithelial Cell UA Auto 0-2 0-2, 2-5 # /hpf 08/16/2014 2:56 PM CDT [facility] Bacteria UA Auto 4+(A) None seen 08/16/2014 2:56 PM CDT [facility] Hyaline Casts UA Auto Reflex to manual(A) 0 - 2 #/lpf 08/16/2014 2:56 PM CDT [facility] Urine URINE SPECIMEN COLLECTION, CATHETERIZED / Unknown Collection / Unknown 08/16/2014 2:14 PM CDT 08/16/2014 2:26 PM CDT Maria Elena Sweeney MD LAB - URINALYSIS OR DERABLES Performing Organization Address City/State/[facility] Co de Phone Number [facility] [address] [place], [place] [phone] * URINALYSIS MICROSCOPIC ONLY (08/16/2014 2:14 PM CDT) RBC UA 0-2, 2-5 # /hpf 08/16/2014 3:12 PM CDT [facility] WBC UA 0-2, 2-5 # /hpf 08/16/2014 3:12 PM CDT [facility] Bacteria UA None Seen 08/16/2014 3:12 PM CDT [facility] Epithelial Cell UA 0-2, 2-5 08/16/2014 3:12 PM CDT [facility] Mucus UA Trace 08/16/2014 3:12 PM CDT [facility] Hyaline Casts 0-2 0 - 2 # /lpf 08/16/2014 3:12 PM CDT [facility] Urine URINE SPECIMEN COLLECTION, CATHETERIZED / Unknown Collection / Unknown 08/16/2014 2:14 PM CDT 08/16/2014 2:26 PM CDT Maria Elena Sweeney MD LAB - URINALYSIS OR DERABLES [facility] [address] [place] [address] * GLUCOSE - POINT OF CARE (05/17/2014 6:12 PM CDT) [facility] Glucose WB/POC 74 70 - 106 mg/dL 05/17/2014 6:13 PM CDT [facility] Blood BLOOD SPECIMEN / Unknown 05/17/2014 6:12 PM CDT 05/17/2014 6:13 PM CDT Andriy Miller MD LAB - POINT OF CARE ORDERABLES Performing Organization Address City/[facility]/ZIP Co de Phone Number [facility] [address] [place] [phone] * DRUG ABUSE URINE PANEL (05/17/2014 6:06 PM CDT) [facility] Amphetamines Screen Urine Not Detected Not Detected 05/17/2014 6:41 PM CDT [facility] Barbiturates Screen Urine Not Detected Not Detected 05/17/2014 6:41 PM CDT [facility] Benzodiazepines Screen Urine Not Detected Not Detected 05/17/2014 6:41 PM CDT [facility] Cannabinoids Screen Urine Not Detected Not Detected 05/17/2014 6:41 PM CDT [facility] [facility] Cocaine Screen Urine Not Detected Not Detected 05/17/2014 6:41 PM CDT [facility] Opiate Screen Urine Not Detected Not Detected 05/17/2014 6:41 PM CDT [facility] Phencyclidine Screen Urine Not Detected Not Detected 05/17/2014 6:41 PM CDT [facility] Urine URINE / Unknown Collection / Unknown 05/17/2014 6:06 PM CDT 05/17/2014 6:19 PM CDT Narrative [facility] - 05/17/2014 6:41 PM CDT This [...] URINE CHEMISTR Y ORDERABLES Performing Organization Address City/[facility] Co de Phone Number [facility] [address] [place] [address] * GLUCOSE PROTEIN KETONE URINE - POINT OF CAR (04/04/2014 3:55 PM HAND CANDY DIPPER) Glucose UA negative Negative [facility] POCT TESTING Protein UA trace Negative [facility] POCT TEST[facility] Ketone UA negative Negative [facility] POCT TEST[facility] QC Verified Yes Yes [facility] POC T TESTING Urine specimen (specimen) URINE / Unknown 04/04/2014 3:55 PM HAND CANDY DIPPER Vira Oviedo APRN-HECTOR LAB - POINT OF CARE ORDERABLES Performing Organization Address [facility] de Phone Number [facility] POCT TESTING [address] [place] [address] * XR CERVICAL SPINE 2 OR 3 [...] Positive(A ) Negative 10/15/2013 4:25 AM CDT [facility] Blood BLOOD SPECIMEN / Unknown 10/15/2013 3:35 AM CDT 10/15/2013 4:24 AM CDT Dano Galvan MD LAB - CHEMISTRY ORDE RABLES Performing Organization Address [facility] Co de Phone Number [facility] [address] [place] [address] * HCG URINE QUALITATIVE (10/15/2013 2:35 AM CDT) hCG Qualitative Urine Negative Negative 10/15/2013 3:13 AM CDT [facility] Urine URINE SPECIMEN OBTAINED BY CLEAN CATCH PROCEDURE / Unknown 10/15/2013 2:35 AM CDT 10/15/2013 2:37 AM CDT Dano Galvan MD LAB - URINALYSIS ORD ERABLES Performing Organization Address [facility] Co de Phone Number [facility] [address] [place] [address] * EKG 12-LEAD (12/22/2011 6:55 PM HAND CANDY DIPPER) Only the most recent of2 resultswithin the time period is included. Narrative [facility] RADIOLOGY - 12/22/2011 6:55 PM HAND CANDY DIPPER A scan was deleted from the Results section by Charly Chavez [[id number]] on 12/22/2011 at 6:55 PM (File: [id number]) Procedure Note ProviderMarci MD - 07/15/2017 A scan was deleted from the Results section by Charly Chavez [[id number]] on 12/22/2011t 6:55 PM (File:[id number]) Kallie Wyatt MD ECG ORDERABLES [facility] RADIOLOGY * (ABNORMAL) URINALYSIS W/MICROSCOPIC NO CULTURE (11/22/2011 6:10 PM CDT) Color UA YELLOW STRW,YELLOW [facility] Clarity UA HAZY(A) CLEAR [facility] Specific Reading Urine 1.017 1.001 - 1.030 [facility] pH UA 6.0 5.0 - 8.0 [facility] Protein UA 30(A) <20 mg/dL [facility] Glucose UA NEGATIVE NEGATIVE mg/dL [facility] Ketones 40(A) NEGATIVE mg/dL [facility] Bilirubin UA NEGATIVE NEGATIVE mg/dL [facility] Blood UA MODERATE(A) NEGATIVE [facility] Nitrite UA POSITIVE(A) NEGATIVE [facility] Leukocyte Esterase LARGE(A) NEGATIVE [facility] Urobilinogen UA 2.0 <2.0 mg/dL [facility] RBC Urine 23(H) 0 - 8 /HPF [facility] WBC Urine 270(H) 0 - 2 /HPF [facility] Bacteria Urine MANY(A) <OCCASIONAL /HPF [facility] Squamous Epithelial Cells UA 15(H) 0 - 1 /HPF [facility] Renal Epithelial UA < 1 0 - 1 /HPF [facility] Mucus Urine MANY(A) NONE SEEN /LPF [facility] Amorphous OCCASIONAL <= MANY /HPF [facility] Urine specimen (specimen) URINE SPECIMEN OBTAINED BY CLEAN CATCH PROCEDURE / Unknown 11/22/2011 6:10 PM CDT 11/22/2011 6:21 PM CDT Nakul Gutierrez MD LAB - URINALYSIS ORD ERABLES [facility] [address] [phone] * (ABNORMAL) DRUG ABUSE PANEL 10-20+ETHANOL URINE NO CONFIRM (11/22/2011 6:10 PM CDT) Amphetamines NEGATIVE NEGATIVE [facility] Comment:Positive Cutoff: >=1 000 ng/mL Barbiturate NEGATIVE NEGATIVE [facility] Comment:Positive Cutoff: >=2 00 ng/mL Benzodiazepine Screen Urine NEGATIVE NEGATIVE [facility] Comment:Positive Cutoff: >=2 00 ng/mL Opiates POSITIVE(A) NEGATIVE [facility] Comment:Positive Cutoff: >=3 00 ng/mL Cocaine Metabolite Urine NEGATIVE NEGATIVE [facility] Comment:Positive Cutoff: >=3 00 ng/mL Phencyclidine Screen Urine NEGATIVE NEGATIVE [facility] Comment:Positive Cutoff: >=2 5 ng/mL Cannabinoids Screen Urine NEGATIVE NEGATIVE [facility] Comment:Positive Cutoff: >=5 0 ng/mL Methadone NEGATIVE NEGATIVE [facility] Comment:Positive Cutoff: >=3 00 ng/mL Note [facility] Comment: Positive results should be confirmed by another generally accepted non-immunological method such as gas chromatography or mass spectrometry. Toxicology testing by the [facility] is an aid to medical diagnosis and treatment of patients. No documented chain of custody was maintained. Results are intended to be used for clinical purposes only. Note [facility] Comment: The UTOX Panel does not screen for Propoxyphene, Meprobamate, Carisoprodol, Trazodone, teaf-rmm-djtqtcf medications and/or volatiles (Acetone, Isopropanol, Methanol, Ethylene Glycol). Ethanol, Salicylate, Acetaminophen, Tricyclic Antidepressants and several therapeutic drugs may be individually assayed in a serum specimen. Urine specimen (specimen) URINE SPECIMEN OBTAINED BY CLEAN CATCH PROCEDURE / Unknown 11/22/2011 6:10 PM CDT 11/22/2011 6:21 PM CDT Nakul Gutierrez MD LAB - URINE CHEMISTR Y ORDERABLES [address] [phone] * (ABNORMAL) BASIC METABOLIC PANEL (CALCIUM TOTAL) (11/22/2011 5:00 PM CDT) BUN 7 7 - 26 mg/dL [facility] Creatinine 0.6 0.6 - 1.2 mg/dL [facility] eGFR by MDRD > 60 ML/MIN [facility] Comment: Chronic kidney disease: <60 ml/min Kidney failure: <15 ml/min Based on BSA of 1.73m2. Sodium 137 136 - 145 mmol/L [facility] Potassium 3.1(L) 3.5 - 4.5 mmol/L [facility] Chloride 110(H) 98 - 107 mmol/L [facility] CO2 16(L) 22 - 29 mmol/L [facility] Glucose 83 70 - 115 mg/dL [facility] Calcium 7.9(L) 8.4 - 10.2 mg/dL [facility] Anion Gap 14 8 - 18 [facility] BUN/Creatinine Ratio 11 7 - 23 [facility] Osmolality Calculation 266(L) 270 - 300 mOsm/kg [facility] Venous blood specimen (specimen) 11/22/2011 5:00 PM CDT 11/22/2011 5:03 PM CDT Kallie Wyatt MD LAB - CHEMISTRY ORDE RABLES [address] [phone] * HCG URINE QUALITATIVE - POCT (IP) [facility] (11/22/2011 3:43 PM CDT) Test Urine negative [facility] Urine specimen (specimen) 11/22/2011 3:43 PM CDT Kallie Wyatt MD LAB - POINT OF CARE ORDERABLES [facility] * XR CHEST 1VW PORTABLE (11/22/2011 2:33 PM CDT) Anatomical Region Laterality Modality Chest Other Impressions 11/22/2011 2:58 PM CDT IMPRESSION: 1. No acute pulmonary disease. Report dictated by Kirby Lopez M.D. (president and chief commercial officer) Dr. GRISELDA Espitia M.D. have personally reviewed [...] disease. Report dictated by Kirby Lopez M.D. (president and chief commercial officer) Dr. GRISELDA Espitia M.D. have personally reviewed and interpreted thisexamination/study. This report was electronically signed by GRISELDA BRUNO M.D. on 11/22/20112:58 PM . Kallie Wyatt MD DIAGNOSTIC IMAGING O RDERABLES * XR ANKLE 3+ VW RIGHT (01/16/2011 3:59 AM HAND CANDY DIPPER) Anatomical Region Laterality Modality Lower Extremity Radiographic Ramya ging 01/16/2011 8:53 AM HAND CANDY DIPPER Impressions 01/16/2011 10:18 AM HAND CANDY DIPPER No acute osseous abnormality. Narrative 01/16/2011 10:18 AM HAND CANDY DIPPER RIGHT ANKLE 3 VIEWS INDICATION: Right ankle [...] PROFILE I W/ HBSAG (02/07/1998 12:00 AM HAND CANDY DIPPER) Only the most recent of2 resultswithin the time period is included. Rh Type positive [facility] ABO O [facility] 02/07/1998 [facility] - 02/07/1998 12:00 AM HAND CANDY DIPPER This external order was created through the Results Console. Historical Provider LAB - CHEMISTRY O RDERABLES [facility] * PAP THINPREP (02/07/1998 12:00 AM HAND CANDY DIPPER) Prostatic Acid Phosphatase WNL @ Dr. Sims' s [facility] Cervical swab (specimen) PART OF UTERINE CERVIX / Unknown 02/07/1998 [facility] - 02/07/1998 12:00 AM HAND CANDY DIPPER This external order was created through the Results Console. [facility] Provider LAB - PATHOLOGY/C YTOLOGY ORDERABLES [facility] Care Teams Safety Director Relationship Specialty Start Date End Date Julian Turcios DO [address] [address] PCP - General Family Medicine 05/27/20
--- OUTSIDE RECORDS SUMMARY | 2024-04-21 16:31 | XMS_ITS | Encounter Summary ---
Author Organization [facility] Health Address [address] [facility] [place] [address] Care Team Providers [employer] Principal Name Role Phone Vin Sims MD Primary Care Provider [phone] Julian Turcios DO Primary Care Provider [phone] Reason for Visit * Reason Onset Date Comments Update 12/27/2018 Encounter Details Date Type Department Care Team (Late st Contact Info) Description 12/27/2018 Telephone [facility] MATERNAL/ EVALUATION UNIT [address] [place] [address] Micaela Esteves, SHOE POLISHER-LABORATORY MANAGER [address] [address] [place] [id number] Update Social History Tobacco Use Types Packs/Day Years Used Date Smoking Tobacco: Never Smokeless Tobacco: Never Alcohol Use Standard Drinks/Week Comments No 0 (1 standard drink = 0.6 oz pur e alcohol) Comments Yes Sex and Gender Information Value Date Recorded Sex Assigned at Female 04/04/2022 3:36 AM [employer] Gender Identity Female 04/04/2022 3:36 AM [employer] Sexual Orientation Straight 04/04/2022 3: 36 AM [employer] documented as of this encounter Functional Status [...] on filedocumented in this encounter Care Teams [employer] Principal Relationship Specialty Start Date End Date Vin Sims MD [address] [facility] [address] [place] [address] PCP - General Obstetrics and Gynecology 09/03/1805/08 Julian Turcios DO [address] [facility] [address] [place] [address] PCP - General Family Medicine 05/27/20 documented as of this encounter
--- OUTSIDE RECORDS SUMMARY | 2024-04-21 16:31 | XMS_ITS | Clinical Summary ---
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 Gender Identity Not on file Sexual Orientation [...] 9 CONCEPCIÓN Allred,Queenie Palumbo MD Complications:None Delivery Location:[facility] Main C ampus ([facility] 58LD) 2020 Term 40w 0d Vag-S [...] age to complete this topic Insurance [employer] [facility] HMO/PPO Address: [address] [address] [place] [address] [employer] [facility] [employer] [facility] HMO/PPO Address: [address] [address] [place] [id number] [facility] [employer] [facility] HMO/PPO Address: [address] [address] [place] [address] [place] [address] Advance Directives For more information, please contact: [phone] * Full Code (Latest Code Status on File) Date Activated Date Inactivated Comments 01/17/2019 9:44 AM 01/19/2019 6:20 PM * Full Code Date Activated Date Inactivated Comments 01/16/2019 11:24 AM 01/17/2019 9:43 AM Full CPR in case of cardiopulmonary arrest Care Teams Stock Room Manager Relationship Specialty Start Date End Date Unknown, Notinfile PCP - General 01/14/19
--- OUTSIDE RECORDS SUMMARY | 2024-04-21 16:31 | XMS_ITS | Clinical Summary ---
Author Organization [facility] Address [address] [place] [address] Care Team Providers Care Steam Plant Control Room Operator Name Role Phone Vin Sims MD Primary Care Provider [phone] Allergies No known active allergies Medications vitamin 27-1 MG Tab tablet Take 1 tablet by mouth daily. Active vitamin D3, cholecalciferol , 10 MCG (400 UNIT) tablet Take 100 Units by mouth daily. Active Ascorbic Acid (VITAMIN C) 100 MG tablet Take 750 mg by mouth daily. Active benzocaine-ment hol 20-0.5 % AerosolIndicati ons:Normal course ([facility]) Apply 1 spray topically 4 (four) times daily as needed (Perineal discomfort). 1 each 1 Active docusate sodium 100 MG capsuleIndicati ons:Normal course ([facility]) Take 1 capsule (100 mg total) by mouth 2 (two) times daily as needed for Constipation. 30 capsule 1 Active HYDROcodone-luis alberto taminophen 5-325 MG tabletIndicatio ns:Acute Pain < 7 Day Supply Take 1 tablet by mouth every 6 (six) hours as needed. Indications: Acute Pain < 7 Day Supply 10 tablet 1 Active Active Problems Problem Noted Date Diagnosed Date ([facility]) 03/08/2020 Labor and delivery indicatio n for care or intervention ([facility]) 02/24/2020 Social History Tobacco Use Types Packs/Day [...] Comments Blood Pressure 116/82 03/09/2020 8:00 AM [facility] Pulse 72 03/09/2020 8:00 AM [facility] Temperature 36.7 C (98.1 F) 03/09/2020 8:00 AM [facility] Respiratory Rate 20 03/09/2020 8:00 AM [facility] Oxygen Saturation 100% 03/09/2020 12:35 AM [facility] Inhaled Oxygen Concentration - - Weight 79.8 kg (176 lb) 03/08/2020 2:23 AM [facility] Height 149.9 cm (4' 11.02 ) 03/08/2020 2:[address] Body Mass Index 35.53 03/08/2020 2:23 AM [facility] Plan of Treatment Health Maintenance Due Date [...] age to complete this topic Insurance [place] [address] [place] [id number] Advance Directives * Full Code (Latest Code Status on File) Date Activated Date Inactivated Comments 03/08/2020 2:04 AM 03/09/2020 8:18 PM Care Teams Steam Plant Control Room Operator Relationship Specialty Start Date End Date Vin Sims MD [address] [address] PCP - General OBGYN 12/31/19
--- OUTSIDE RECORDS SUMMARY | 2024-04-21 16:31 | XMS_ITS | Clinical Summary ---
Author Organization [facility] Address [address] [place] [address] Care Team Providers Care Car Dryer Name Role Phone Julian Turcios Primary Care Provider [phone] [facility],non-owned Affiliates and Associated Physician Practices is amultiple site organization consisting of ambulatory clinics and hospital sitesin [place], [place], [place] and [place]. This disclosure is being madepursuant to the Care Everywhere program and may not contain all information available regarding this patient. Last updated 17.[facility] Allergies Active Allergy Reactions Criticality Noted Date [...] passed Assessment & Plan (01/01/2019 8:21 PM DIGITAL MARKETING EXECUTIVE): Complaints suspicious for renal stone History of delivery 03/11/2014 Overview (10/08/2023): X 2 at 35 weeks, 1 at 36 Assessment & Plan (01/01/2019 8:20 PM DIGITAL MARKETING EXECUTIVE): No longer taking Lesley. Remains at risk for recurrent delivery. Assessment & Plan (11/23/2018 6:47 PM CDT): Continue weekly [place] labor precautions Resolved Problems Problem Noted Date [...] 10/04/2019 Assessment & Plan (01/01/2019 8:22 PM DIGITAL MARKETING EXECUTIVE): Diagnosed during her most recent triage visit 12/26/18 Finish metronidazole Uterine contractions during 12/26/2018 12/26/2018 Anemia in 10/20/2018 10/08/19 24 Overview (01/01/2019): Likely iron deficiency. MCV low normal, was low in early . History of iron deficiency with low MCV. Receiving Venofer Assessment & Plan (01/01/2019 8:19 PM DIGITAL MARKETING EXECUTIVE): Tolerate a Venofer infusion given earlier today [...] 02/20/2024 Assessment & Plan (01/01/2019 8:22 PM DIGITAL MARKETING EXECUTIVE): labor precautions emphasized Assessment & Plan (11/23/2018 6:46 PM CDT): 3TM labs only remarkable for anemia [hgb 9] Anxiety during 10/17/2018 Overview (10/20/2018): Hx depression and anxiety, treated with Zoloft and Effexor. Hx PTSD. Assessment & Plan (01/01/2019 8:20 PM DIGITAL MARKETING EXECUTIVE): Reassess at visits Assessment & Plan (11/23/2018 6:44 PM CDT): Reassess at visits UTI in 09/04/2018 10/08/2023 Overview (10/20/2018): In first trimester, Klebsiella, treated. Hx multiple UTIs. Assessment & Plan (01/01/2019 8:20 PM DIGITAL MARKETING EXECUTIVE): Concern for urinary tract infection today. Planned [...] (07/11/2016): Overview: [facility] Urine culture >100,000 cfu E.Coli [...] Description 03/19/2024 Telephone [facility] [address] [place] [address] Ruma Haider APRN-KOBE Missed Appointment 02/20/2024 11:20 AM DIGITAL MARKETING EXECUTIVE Clinical Support [facility] [address] [place] [address] Ruma Haider APRN-CNP Routine follow-up (HCC) ; History of delivery; History of depression; Anxiety; History of gestational hypertension: G9 02/20/2024 Travel 02/09/2024 1:15 PM DIGITAL MARKETING EXECUTIVE - 02/09/2024 3:38 PM DIGITAL MARKETING EXECUTIVE Hospital Encounter [facility] [address] [place] [address] Gilberto Benavidez MD Discharge Disposition: Home or Self Care 02/09/2024 Telephone [facility] [address] [place] [address] [address] [place] [address] Ruma Haider APRN-CNP Future Appointment 02/06/2024 4:53 PM DIGITAL MARKETING EXECUTIVE Anesthesia Event [facility] 5 [facility] [place]NOTE 2] [address] [place] [id number] Robert Oneal MD Brock, Christianne Hernandez APRN-OLESYA 02/06/2024 1:36 PM DIGITAL MARKETING EXECUTIVE - 02/08/2024 10:44 AM DIGITAL MARKETING EXECUTIVE Hospital Encounter [facility] 6W MOTHER/BABY [address] [place] [id number] Fatmata Waldron MD Dildy, Gary A, MD [facility] Discharge Disposition: Home or Self Care 02/06/2024 Travel 01/30/2024 1:00 PM DIGITAL MARKETING EXECUTIVE visit [facility] [address] [place] [address] [place] [address] Leidy Valdivia MD [place]: [id number] 01/30/2024 Travel 01/23/2024 1:00 PM DIGITAL MARKETING EXECUTIVE visit [facility] [address] [place] [address] [address] [place] [address] Ruma Haider APRN-CNP [place]: [id number] 01/23/2024 Travel [...] Recorded Patient Health Questionnaire-2 Score 0 12/23/2023 [facility] - Occupational Stress [...] in a chcf (including now)? No 08/22/2023 [place] Depression Scale Answer Date Recorded [place] Depression Scale Total 5 02/20/2024 The thought [...] any time in the past 12 m [facility], were you homeless or living in a chcf (including now)? No 02/09/2024 Education Answer Date Recorded What is the highest level of school you have completed or the highest degree you have received? Bachelor's degree (e.g., BA, AB, BS) 10/10/2019 Sex and Gender Information Value Date Recorded Sex Assigned at Female 04/04/2022 3:36 AM DIGITAL MARKETING EXECUTIVE Gender Identity Female 04/04/2022 3:36 AM DIGITAL MARKETING EXECUTIVE Sexual Orientation Straight 04/04/2022 3: 36 AM DIGITAL MARKETING EXECUTIVE Last Filed Vital Signs Vital Sign Reading Time Taken Comments Blood Pressure 118/70 02/20/2024 11:29 AM DIGITAL MARKETING EXECUTIVE Pulse 102 02/08/2024 7:55 AM DIGITAL MARKETING EXECUTIVE Temperature 37.1 C (98.7 F) 02/09/2024 1:28 PM DIGITAL MARKETING EXECUTIVE Respiratory Rate 18 02/09/2024 1:28 PM DIGITAL MARKETING EXECUTIVE Oxygen Saturation 100% 02/09/2024 1:30 PM DIGITAL MARKETING EXECUTIVE Inhaled Oxygen Concentration - - Weight 79.8 kg (176 lb) 02/20/2024 11:29 AM DIGITAL MARKETING EXECUTIVE Height 149.9 cm (4' 11 ) 02/20/2024 11:29 AM DIGITAL MARKETING EXECUTIVE Body Mass Index 35.55 02/20/2024 11:29 AM DIGITAL MARKETING EXECUTIVE Plan of Treatment Health Maintenance Due Date [...] CBC W/O DIFFERENTIAL STAT 02/09/2024 1:56 PM DIGITAL MARKETING EXECUTIVE Supervision of high risk in third trimester (HCC) COMPREHENSIVE METABOLIC PANEL STAT 02/09/2024 1:56 PM DIGITAL MARKETING EXECUTIVE Supervision of high risk in third trimester (HCC) CBC W AUTO DIFFERENTIAL AM Draw 02/07/2024 5:16 AM DIGITAL MARKETING EXECUTIVE COMPREHENSIVE METABOLIC PANEL AM Draw 02/07/2024 5:16 AM DIGITAL MARKETING EXECUTIVE BLOOD GASES CORD ART (ISTAT) Routine 02/07/2024 12:40 AM DIGITAL MARKETING EXECUTIVE NEURAXIAL BLOCK Routine 02/06/2024 4:56 PM DIGITAL MARKETING EXECUTIVE TYPE + SCREEN PANEL STAT 02/06/2024 2 :53 PM DIGITAL MARKETING EXECUTIVE SYPHILIS ANTIBODY CASCADING REFLEX STAT 02/06/2024 2:53 PM DIGITAL MARKETING EXECUTIVE CBC W AUTO DIFFERENTIAL STAT 02/06/2024 2:53 PM DIGITAL MARKETING EXECUTIVE CULTURE URINE Routine 01/30/2024 1:43 PM DIGITAL MARKETING EXECUTIVE Supervision of high risk , antepartum (HCC) URINALYSIS AUTO - POINT OF CARE (AMB) [facility] Routine 01/30/2024 1:32 PM DIGITAL MARKETING EXECUTIVE Supervision of high risk , antepartum (HCC) URINALYSIS AUTO - POINT OF CARE (AMB) [facility] Routine 01/23/2024 1:15 PM DIGITAL MARKETING EXECUTIVE Supervision of high risk , antepartum (HCC) HIV-1 HIV-2 ANTIBODY + HIV P24 AG PANEL Routine 12/01/2023 7:22 AM CDT Supervision of high risk in third trimester (HCC) HEPATITIS C ANTIBODY Routine 08/22/2023 10:32 AM CDT Supervision of high risk in second trimester (HCC) PAP THINPREP Routine 02/07/1998 12:00 AM DIGITAL MARKETING EXECUTIVE from Last 3 Months or Most Recently Relevant to Health Maintenance Results * (ABNORMAL) CBC W/O DIFFERENTIAL (02/09/2024 1:56 PM DIGITAL MARKETING EXECUTIVE) [facility] WBC 8.6 4.0 - 10.7 x10E9/L 02/09/2024 3:20 PM DIGITAL MARKETING EXECUTIVE [facility] RBC Count 4.24 3.90 - 5.20 x10E12/L 02/09/2024 3:20 PM DIGITAL MARKETING EXECUTIVE [facility] Hemoglobin 12.0 11.9 - 15.8 g/dL 02/09/2024 3:20 PM DIGITAL MARKETING EXECUTIVE [facility] Hematocrit 36.5 34.8 - 46.1 % 02/09/2024 3:20 PM DIGITAL MARKETING EXECUTIVE [facility] MCV 86.1 80.0 - 98.0 fL 02/09/2024 3:20 PM DIGITAL MARKETING EXECUTIVE [facility] MCH 28.3 26.7 - 33.6 pg 02/09/2024 3:20 PM DIGITAL MARKETING EXECUTIVE [facility] MCHC 32.9 31.7 - 36.3 g/dL 02/09/2024 3:20 PM DIGITAL MARKETING EXECUTIVE [facility] RDW-CV 17.2(H) 11.3 - 14.8 % 02/09/2024 3:20 PM [facility] Platelet Count 255 150 - 420 x10E9/L 02/09/2024 3:20 PM [facility] MPV 11.5(H) 7.8 - 11.4 fL 02/09/2024 3:20 PM [facility] Blood BLOOD SPECIMEN / Unknown Venipuncture / Unknown 02/09/2024 1:56 PM DIGITAL MARKETING EXECUTIVE 02/09/2024 2:25 PM [facility] [[email or web address]] Gilberto Benavidez MD LAB - HEMATOLOGY ORD ERABLES [facility] [address] [place], [place] [id number] * (ABNORMAL) COMPREHENSIVE METABOLIC PANEL (02/09/2024 1:56 PM [facility] [[email or web address] Only the most recent of2 resultswithin the time period is included. Glucose 67(L) 70 - 99 mg/dL 02/09/2024 3:01 PM [facility] Sodium 137 136 - 145 mmol/L 02/09/2024 3:01 PM [facility] Potassium 3.8 3.5 - 5.1 mmol/L 02/09/2024 3:01 PM [facility] Chloride 109(H) 98 - 107 mmol/L 02/09/2024 3:01 PM [facility] CO2 20(L) 22 - 29 mmol/L 02/09/2024 3:01 PM [facility] Calcium 8.9 8.4 - 10.4 mg/dL 02/09/2024 3:01 PM [facility] Anion Gap 8 6 - 16 mmol/L 02/09/2024 3:01 PM [facility] BUN 7 5.3 - 18.7 mg/dL 02/09/2024 3:01 PM [facility] Creatinine 0.58 0.57 - 1.11 mg/dL 02/09/2024 3:01 PM [facility] Alkaline Phosphatase 88 40 - 150 U/L 02/09/2024 3:01 PM [facility] ALT 11 0 - 55 U/L 02/09/2024 3:01 PM [facility] AST 14 5 - 34 U/L 02/09/2024 3:01 PM [facility] Protein Total 6.8 6.4 - 8.3 gm/dL 02/09/2024 3:01 PM [facility] Albumin 2.6(L) 3.4 - 5.0 gm/dL 02/09/2024 3:01 PM [facility] Bilirubin Total 0.3 0.2 - 1.2 mg/dL 02/09/2024 3:01 PM [facility] eGFR by CKD-EPI >90 >=90 mL/min/1.7 3 m2 02/09/2024 3:01 PM [facility] Blood BLOOD SPECIMEN / Unknown Venipuncture / Unknown 02/09/2024 1:56 PM DIGITAL MARKETING EXECUTIVE 02/09/2024 2:25 PM DIGITAL MARKETING EXECUTIVE Gilberto Benavidez MD LAB - CHEMISTRY [facility] Organization Address City/State/ZIP Co de Phone Number [facility] [address] [place] [address] * (ABNORMAL) CBC W AUTO DIFFERENTIAL (02/07/2024 5:16 AM DIGITAL MARKETING EXECUTIVE) Only the most recent of2 resultswithin the time period is included. WBC 14.7(H) 4.0 - 10.7 x10E9/L 02/07/2024 5:41 AM [facility] RBC Count 3.95 3.90 - 5.20 x10E12/L 02/07/2024 5:41 AM [facility] Hemoglobin 11.0(L) 11.9 - 15.8 g/dL 02/07/2024 5:41 AM [facility] Hematocrit 33.8(L) 34.8 - 46.1 % 02/07/2024 5:41 AM [facility] MCV 85.6 80.0 - 98.0 fL 02/07/2024 5:41 AM [facility] MCH 27.8 26.7 - 33.6 pg 02/07/2024 5:41 AM [facility] MCHC 32.5 31.7 - 36.3 g/dL 02/07/2024 5:41 AM [facility] RDW-CV 17.0(H) 11.3 - 14.8 % 02/07/2024 5:41 AM [facility] Platelet Count 187 150 - 420 x10E9/L 02/07/2024 5:41 AM [facility] MPV 11.0 7.8 - 11.4 fL 02/07/2024 5:41 AM [facility] Neutrophil % 82.6(H) 41.0 - 74.0 % 02/07/2024 5:41 AM [facility] Lymphocyte % 8.2(L) 17.0 - 47.0 % 02/07/2024 5:41 AM [facility] Monocyte % 8.2 3.0 - 11.0 % 02/07/2024 5:41 AM [facility] Eosinophil % 0.2 0.0 - 7.0 % 02/07/2024 5:41 AM [facility] Basophil % 0.1 0.0 - 1.6 % 02/07/2024 5:41 AM [facility] Immature Granulocytes % 0.7 0.0 - 1.0 % 02/07/2024 5:41 AM [facility] Neutrophil Absolute 12.15(H) 1.60 - 7.50 x10E9/L 02/07/2024 5:41 AM [facility] Lymphocyte Absolute 1.21 1.00 - 4.40 x10E9/L 02/07/2024 5:41 AM [facility] Monocyte Absolute 1.20(H) 0.15 - 1.00 x10E9/L 02/07/2024 5:41 AM [facility] Eosinophil Absolute 0.03 0.00 - 0.60 x10E9/L 02/07/2024 5:41 AM [facility] Basophil Absolute 0.02 0.00 - 0.13 x10E9/L 02/07/2024 5:41 AM [facility] Blood BLOOD SPECIMEN / Unknown Lab Venipuncture / Unknown 02/07/2024 5:16 AM DIGITAL MARKETING EXECUTIVE 02/07/2024 5:21 AM DIGITAL MARKETING EXECUTIVE Gilberto Benavidez MD LAB - HEMATOLOGY ORD ERABLES [facility] [address] [place] [address] * (ABNORMAL) BLOOD GASES CORD ART (ISTAT) (02/07/2024 12:40 AM DIGITAL MARKETING EXECUTIVE) pH Cord Arterial POCT 7.20 7.20 - 7.34 pH 02/07/2024 12:49 AM DIGITAL MARKETING EXECUTIVE [facility] pCO2 Cord Arterial POCT 65.2(H) 45 - 55 mm hg 02/07/2024 12:49 AM DIGITAL MARKETING EXECUTIVE [facility] pO2 Cord Arterial POCT 15 12 - 25 mm hg 02/07/2024 12:49 AM DIGITAL MARKETING EXECUTIVE [facility] HCO3 Cord Arterial POCT 25.7(H) 22 - 24 mmol/L 02/07/2024 12:49 AM DIGITAL MARKETING EXECUTIVE [facility] BE Cord Arterial POCT -4(L) -2.9 - 8.3 mmol/L 02/07/2024 12:49 AM DIGITAL MARKETING EXECUTIVE [facility] TCO2 Cord Arterial POCT 28 mmol/L 02/07/2024 12:49 AM [facility] O2 Saturation Cord Art % Calc POCT 13 % 02/07/2024 12:49 AM DIGITAL MARKETING EXECUTIVE [facility] Site CORD ART 02/07/2024 12:49 AM DIGITAL MARKETING EXECUTIVE [facility] Sample iSTAT CORD ART 02/07/2024 12:49 AM [facility] Blood CORD BLOOD SPECIMEN / Unknown 02/07/2024 12:40 AM DIGITAL MARKETING EXECUTIVE 02/07/2024 12:49 AM DIGITAL MARKETING EXECUTIVE Gilberto Benavidez MD LAB - POINT OF CARE ORDERABLES Performing Organization Address City/State/[facility] Co de Phone Number [facility] [address] [place] [address] * EPIDURAL BLOCK PERF (02/06/2024 4:56 PM DIGITAL MARKETING EXECUTIVE) Narrative Christianne Cameron APRN-CRNA - 02/06/2024 4:56 PM DIGITAL MARKETING EXECUTIVE Christianne Cameron APRN-CRNA 02/06/2024 5:06 PM Neuraxial [...] Time: 2 Staff: Anesthesia Provider: Christianne Cameron APRN-MECHANICAL ENGINEERING TECHNOLOGIST - performed the procedure Robert Oneal MD GENERAL ANESTHESIA O RDERABLES * SYPHILIS ANTIBODY CASCADING REFLEX (02/06/2024 2:53 PM DIGITAL MARKETING EXECUTIVE) Treponema pallidum Antibody Non Reactive Non Reactive 02/06/2024 3:42 PM DIGITAL MARKETING EXECUTIVE [facility] Comment: No Laboratory evidence of syphilis infection. Note: Circulating antibodies may be low or undetectable in early infection. If recent exposure is suspected, re-draw sample in 2-4 weeks and repeat testing. Blood BLOOD SPECIMEN / Unknown Venipuncture / Unknown 02/06/2024 2:53 PM DIGITAL MARKETING EXECUTIVE 02/06/2024 3:04 PM DIGITAL MARKETING EXECUTIVE Fatmata Waldron MD LAB - SEROLOGY ORDER CARINA Performing Organization Address [facility]/ZIP Co de Phone Number [facility] [address] [place] [address] * TYPE + SCREEN PANEL (ALL [facility]) (02/06/2024 2:53 PM DIGITAL MARKETING EXECUTIVE) Pathologist [facility] ABO Rh O POS 02/06/2024 3:40 PM DIGITAL MARKETING EXECUTIVE [facility] Comment:History checked. Antibody Screen NEG 3:40 PM DIGITAL MARKETING EXECUTIVE [facility] Blood Bank BLOOD SPECIMEN / Unknown Venipuncture / Unknown 02/06/2024 2:53 PM DIGITAL MARKETING EXECUTIVE 02/06/2024 3:04 PM DIGITAL MARKETING EXECUTIVE Fatmata Waldron MD LAB - BLOOD BANK ORD ERABLES Performing Organization Address [facility] Co de Phone Number [facility] [address] [place] [phone] [place] [address] * CULTURE URINE (01/30/2024 1:43 PM DIGITAL MARKETING EXECUTIVE) Pathologist [facility] Culture [facility] Comment: CULTURE, URINE, ROUTINE Micro Number: [id number] Test Status: Final Specimen Source: Urine, clean catch Specimen Quality: Adequate Result: No Growth Test Performed at: [facility] [address] MAMIE LIMON MD Urine URINE SPECIMEN OBTAINED BY CLEAN CATCH PROCEDURE / Unknown 01/30/2024 1:43 PM DIGITAL MARKETING EXECUTIVE 01/31/2024 4:38 AM DIGITAL MARKETING EXECUTIVE Leidy Valdivia MD LAB - M ICROBIOLOGY ORDERABLES Performing Organization Address [facility]/ZIP Co de Phone Number [address] [address] * URINALYSIS AUTO - POINT OF CARE (AMB) [facility] (01/30/2024 1:32 PM DIGITAL MARKETING EXECUTIVE) Only the most recent of2 resultswithin the time period is included. Pathologist [facility] Glucose UA negative [facility] [address] Bilirubin UA POCT negative [facility] [address] Ketones UA POCT ++ [facility] [address] Comment:moderate Specific Comptche UA 1.[address] [facility] [address] Blood Urine POCT negative [facility] [address] pH UA 6.[address] [facility] [address] Protein UA negative [facility] [address] Urobilinogen UA normal [facility] [address] Nitrite UA negative [facility] [address] WBC UA + [facility] [address] Urine URINE / Unknown 01/30/2024 1 :32 PM DIGITAL MARKETING EXECUTIVE Leidy Valdivia MD LAB - P OINT OF CARE ORDERABLES [facility] [address] [place] [address], [facility] [phone] * HIV-1 HIV-2 ANTIBODY + HIV P24 [...] purpose. For additional information please refer to http://education.Quickoffice.Patient Conversation Media/faq/GJF762 (This link is being provided for informational/ educational purposes only.) The performance of this assay has not been clinically validated in patients less than 2 years old. Test Performed at: [facility] [address] [place] [address] MAMIE LIMON MD Blood BLOOD SPECIMEN / Unknown 12/01/2023 7:22 AM CDT 12/01/2023 7:22 AM CDT Ruma VILLANUEVA LAB - CHEMISTR Y ORDERABLES [facility] [address] [place] [address] * HEPATITIS C ANTIBODY (08/22/2023 10:32 AM CDT) HCV Antibody Screen Non Reactive Non Reactive 08/22/2023 12:42 PM CDT [facility] Blood BLOOD SPECIMEN / Unknown Venipuncture / Unknown 08/22/2023 10:32 AM CDT 08/22/2023 12:00 PM CDT Narrative [facility] - 08/22/2023 12:42 PM CDT Non Reactive - Antibodies to Hepatitis C virus (HCV) were not detected, result does not exclude early acute HCV infection. Shira Anrdade MD LAB - CHEMISTR Y ORDERABLES Performing Organization Address City/[facility]/ZIP Co de Phone Number [facility] [address] [place] [address] * PAP THINPREP (02/07/1998 12:00 AM DIGITAL MARKETING EXECUTIVE) Prostatic Acid Phosphatase WNL @ Dr. Sims' s [facility] Cervical swab (specimen) PART OF UTERINE CERVIX / Unknown 02/07/1998 Narrative [facility] - 02/07/1998 12:00 AM DIGITAL MARKETING EXECUTIVE This external order was created through the Results Console. Historical Provider LAB - PATHOLOGY/C YTOLOGY ORDERABLES [facility] from Last 3 Months or Most Recently [...] 4:02 PM 12/18/2018 6:29 PM Care Teams Car Dryer Relationship Specialty Start Date End Date Julian Turcios DO [address] [address] PCP - General Family Medicine 05/27/20
--- OUTSIDE RECORDS SUMMARY | 2024-04-21 16:31 | XMS_ITS | Referral Summary ---
Author Organization [facility] Address [facility]ly [facility] [place] [address] Care Team Providers Care Local Area Network Systems Adminstrator Name Role Phone Unknown, Notinfile Primary Care Provider Unavail able Allergies Active Allergy Reactions Criticality Noted Date Comments Prednisone Swelling Medium 09/18/2022 Medications [id number] -epa-fish oil 400 mcg-35 mg -25 mg-5 [...] on file Legal Sex Female 9:08 PM ASSEMBLER CONVERTIBLE TOP Gender Identity Not on file Sexual Orientation [...] of Treatment Not on file Insurance IDPA [facility] CHOICE PLUS IDPA [facility] CHOICE PLUS [place] [id number] [facility] CHOICE PLUS IDPA Advance Directives For more information, please contact: [phone] * Full Code (Latest Code Status on File) Date Activated Date Inactivated Comments 01/17/2019 9:44 AM 01/19/2019 6:20 PM * Full Code Date Activated Date Inactivated Comments 01/16/2019 11:24 AM 01/17/2019 9:43 AM Full CPR in case of cardiopulmonary arrest Care Teams Local Area Network Systems Adminstrator Relationship Specialty Start Date End Date Unknown, Notinfile PCP - General 01/14/19
--- OUTSIDE RECORDS SUMMARY | 2024-04-21 16:31 | XMS_ITS | Encounter Summary ---
Author Organization [facility] Address [address] [place] [address] Care Team Providers Care Tea Bag Packer Name Role Phone Vin Sims MD Primary Care Provider [phone] Encounter Details Date Type Department Care Team (Late st Contact Info) Description 03/16/2020 Hospital Follow-up Call [facility] [place] [address] Susie Espinosa, RN Social History Tobacco Use [...] COVID-19? No / Unsure 03/08/2020 3:30 AM ASSIGNMENT OFFICER documented as of this encounter Functional Status * RETIRED Are you deaf or do you have serious difficulty hearing Answer Date of Assessment Author Status No 03/08/2020 4:25 AM ASSIGNMENT OFFICER Activ e * RETIRED Are you blind or do you have serious difficulty seeing, even when wearing glasses? Answer Date of Assessment Author Status No 03/08/2020 4:25 AM ASSIGNMENT OFFICER Activ e * Do you have serious difficulty walking or climbing stairs? Answer Date of Assessment Author Status No 03/08/2020 4:25 AM ASSIGNMENT OFFICER Krystin Carrillo RN A ctive * Do you have difficulty dressing or bathing? Answer Date of Assessment Author Status No 03/08/2020 4:25 AM ASSIGNMENT OFFICER Krystin Carrillo RN A ctive * Because [...] on filedocumented in this encounter Care Teams Tea Bag Packer Relationship Specialty Start Date End Date Vin Sims MD [address] [address] PCP - General OBGYN 12/31/19 documented as of this encounter
--- OUTSIDE RECORDS SUMMARY | 2024-04-21 16:31 | XMS_ITS | Referral Summary ---
Author Organization [facility] Address [address] [facility] [place] [address] Care Team Providers Care Esol Teacher Name Role Phone Julian Turcios Primary Care Provider [phone] Source Comments [facility],non-owned Affiliates and Associated Physician Practices is amultiple site organization consisting of ambulatory clinics and hospital sitesin [place], [place], [place] and [place]. This disclosure is being madepursuant to the Care Everywhere program and may not contain all information available regarding this patient. Last updated 17.[facility] Encounters Date Type Department Care Team Description 03/19/2024 Telephone [facility] - SUPERVISOR LOADING [address] [place] [phone] Ruma Haider APRN-CNP Missed Appointment 02/20/2024 Travel 02/20/2024 11:20 AM LITHOGRAPHIC PROOFER APPRENTICE Clinical Support [facility] - SUPERVISOR LOADING [address] [place] [phone] Ruma Haider APRN-CNP Routine follow-up (HCC) ; History of delivery; History of depression; Anxiety; History of gestational hypertension: G9 02/09/2024 1:15 PM LITHOGRAPHIC PROOFER APPRENTICE - 02/09/2024 3:38 PM LITHOGRAPHIC PROOFER APPRENTICE Hospital Encounter [facility] [address] [place] [address] Gilberto Benavidez MD Discharge Disposition: Home or Self Care 02/09/2024 Telephone [facility] - SUPERVISOR LOADING [address] [place] [address] Ruma Haider APRN-CNP Future Appointment 02/06/2024 1:36 PM LITHOGRAPHIC PROOFER APPRENTICE - 02/08/2024 10:44 AM LITHOGRAPHIC PROOFER APPRENTICE Hospital Encounter [facility] 6W MOTHER/BABY [address] [place] [address] Fatmata Waldron MD Dildy, Gary A, MD SUPERVISOR LOADING Discharge Disposition: Home or Self Care 02/06/2024 4:53 PM LITHOGRAPHIC PROOFER APPRENTICE Anesthesia Event [facility] [address] [place] [phone] Robert Oneal MD Brock, Tonya Marie, APRN-CRNA 02/06/2024 Travel 01/30/2024 Travel 01/30/2024 1:00 PM LITHOGRAPHIC PROOFER APPRENTICE visit [facility] - SUPERVISOR LOADING [address] [facility] [address] [place] [phone] Leidy Valdivia MD GA: [id number] 01/23/2024 Travel 01/23/2024 1:00 PM LITHOGRAPHIC PROOFER APPRENTICE visit [facility] - SUPERVISOR LOADING [address] [place] [address] Ruma Haider APRN-CNP GA: [id number] from Last [...] passed Assessment & Plan (01/01/2019 8:21 PM LITHOGRAPHIC PROOFER APPRENTICE): Complaints suspicious for renal stone History of delivery 03/11/2014 Overview (10/08/2023): X 2 at 35 weeks, 1 at 36 Assessment & Plan (01/01/2019 8:20 PM LITHOGRAPHIC PROOFER APPRENTICE): No longer taking Lesley. Remains at risk for recurrent delivery. Assessment & Plan (11/23/2018 6:47 PM CDT): Continue weekly [facility] [place] labor precautions Resolved Problems Problem Noted Date [...] 10/04/2019 Assessment & Plan (01/01/2019 8:22 PM LITHOGRAPHIC PROOFER APPRENTICE): Diagnosed during her most recent triage visit 12/26/18 Finish metronidazole Uterine contractions during 12/26/2018 12/26/2018 Anemia in 10/20/2018 10/08/19 24 Overview (01/01/2019): Likely iron deficiency. MCV low normal, was low in early . History of iron deficiency with low MCV. Receiving Venofer Assessment & Plan (01/01/2019 8:19 PM LITHOGRAPHIC PROOFER APPRENTICE): Tolerate a Venofer infusion given earlier today [...] 02/20/2024 Assessment & Plan (01/01/2019 8:22 PM LITHOGRAPHIC PROOFER APPRENTICE): labor precautions emphasized Assessment & Plan (11/23/2018 6:46 PM CDT): 3TM labs only remarkable for anemia [hgb 9] Anxiety during 10/17/2018 Overview (10/20/2018): Hx depression and anxiety, treated with Zoloft and Effexor. Hx PTSD. Assessment & Plan (01/01/2019 8:20 PM LITHOGRAPHIC PROOFER APPRENTICE): Reassess at visits Assessment & Plan (11/23/2018 6:44 PM CDT): Reassess at visits UTI in 09/04/2018 10/08/2023 Overview (10/20/2018): In first trimester, Klebsiella, treated. Hx multiple UTIs. Assessment & Plan (01/01/2019 8:20 PM LITHOGRAPHIC PROOFER APPRENTICE): Concern for urinary tract infection today. Planned [...] (07/11/2016): Overview: record from Dr. Wise reviewed, [facility] 05/19/16: Urine culture >100,000 cfu E.Coli O+, [...] Recorded Patient Health Questionnaire-2 Score 0 12/23/2023 [facility] of Occupat ional Health - Occupational Stress [...] place to sleep or slept in a custodial (including now)? No 08/22/2023 [place] Depression Scale Answer Date Recorded [place] Depression Scale Total 5 02/20/2024 The thought [...] any time in the past 12 m [facility], were you homeless or living in a custodial (including now)? No 02/09/2024 Education Answer Date Recorded What is the highest level of school you have completed or the highest degree you have received? Bachelor's degree (e.g., BA, AB, BS) 10/10/2019 Sex and Gender Information Value Date Recorded Sex Assigned at Female 04/04/2022 3:36 AM LITHOGRAPHIC PROOFER APPRENTICE Gender Identity Female 04/04/2022 3:36 AM LITHOGRAPHIC PROOFER APPRENTICE Sexual Orientation Straight 04/04/2022 3: 36 AM LITHOGRAPHIC PROOFER APPRENTICE Last Filed Vital Signs Vital Sign Reading Time Taken Comments Blood Pressure 118/70 02/20/2024 11:29 AM LITHOGRAPHIC PROOFER APPRENTICE Pulse 102 02/08/2024 7:55 AM LITHOGRAPHIC PROOFER APPRENTICE Temperature 37.1 C (98.7 F) 02/09/2024 1:28 PM LITHOGRAPHIC PROOFER APPRENTICE Respiratory Rate 18 02/09/2024 1:28 PM LITHOGRAPHIC PROOFER APPRENTICE Oxygen Saturation 100% 02/09/2024 1:30 PM LITHOGRAPHIC PROOFER APPRENTICE Inhaled Oxygen Concentration - - Weight 79.8 kg (176 lb) 02/20/2024 11:29 AM LITHOGRAPHIC PROOFER APPRENTICE Height 149.9 cm (4' 11 ) 02/20/2024 11:29 AM LITHOGRAPHIC PROOFER APPRENTICE Body Mass Index 35.55 02/20/2024 11:29 AM LITHOGRAPHIC PROOFER APPRENTICE Functional Status Functional Status Response Date of [...] CBC W/O DIFFERENTIAL STAT 02/09/2024 1:56 PM LITHOGRAPHIC PROOFER APPRENTICE Supervision of high risk in third trimester (HCC) COMPREHENSIVE METABOLIC PANEL STAT 02/09/2024 1:56 PM LITHOGRAPHIC PROOFER APPRENTICE Supervision of high risk in third trimester (HCC) CBC W AUTO DIFFERENTIAL AM Draw 02/07/2024 5:16 AM LITHOGRAPHIC PROOFER APPRENTICE COMPREHENSIVE METABOLIC PANEL AM Draw 02/07/2024 5:16 AM LITHOGRAPHIC PROOFER APPRENTICE BLOOD GASES CORD ART (ISTAT) Routine 02/07/2024 12:40 AM LITHOGRAPHIC PROOFER APPRENTICE NEURAXIAL BLOCK Routine 02/06/2024 4:56 PM LITHOGRAPHIC PROOFER APPRENTICE TYPE + SCREEN PANEL STAT 02/06/2024 2 :53 PM LITHOGRAPHIC PROOFER APPRENTICE SYPHILIS ANTIBODY CASCADING REFLEX STAT 02/06/2024 2:53 PM LITHOGRAPHIC PROOFER APPRENTICE CBC W AUTO DIFFERENTIAL STAT 02/06/2024 2:53 PM LITHOGRAPHIC PROOFER APPRENTICE CULTURE URINE Routine 01/30/2024 1:43 PM LITHOGRAPHIC PROOFER APPRENTICE Supervision of high risk , antepartum (HCC) URINALYSIS AUTO - POINT OF CARE (AMB) [facility] Routine 01/30/2024 1:32 PM LITHOGRAPHIC PROOFER APPRENTICE Supervision of high risk , antepartum (HCC) URINALYSIS AUTO - POINT OF CARE (AMB) [facility] Routine 01/23/2024 1:15 PM LITHOGRAPHIC PROOFER APPRENTICE Supervision of high risk , antepartum (HCC) HIV-1 HIV-2 ANTIBODY + HIV P24 AG PANEL Routine 12/01/2023 7:22 AM CDT Supervision of high risk in third trimester (HCC) HEPATITIS C ANTIBODY Routine 08/22/2023 10:32 AM CDT Supervision of high risk in second trimester (HCC) PAP THINPREP Routine 02/07/1998 12:00 AM LITHOGRAPHIC PROOFER APPRENTICE from Last 3 Months or Most Recently Relevant to Health Maintenance Results * (ABNORMAL) CBC W/O DIFFERENTIAL (02/09/2024 1:56 PM LITHOGRAPHIC PROOFER APPRENTICE) [facility] WBC 8.6 4.0 - 10.7 x10E9/L 02/09/2024 3:20 PM LITHOGRAPHIC PROOFER APPRENTICE [facility] RBC Count 4.24 3.90 - 5.20 x10E12/L 02/09/2024 3:20 PM [facility] Hemoglobin 12.0 11.9 - 15.8 g/dL 02/09/2024 3:20 PM [facility] Hematocrit 36.5 34.8 - 46.1 % 02/09/2024 3:20 PM [facility] MCV 86.1 80.0 - 98.0 fL 02/09/2024 3:20 PM [facility] MCH 28.3 26.7 - 33.6 pg 02/09/2024 3:20 PM [facility] MCHC 32.9 31.7 - 36.3 g/dL 02/09/2024 3:20 PM [facility] RDW-CV 17.2(H) 11.3 - 14.8 % 02/09/2024 3:20 PM [facility] Platelet Count 255 150 - 420 x10E9/L 02/09/2024 3:20 PM [facility] MPV 11.5(H) 7.8 - 11.4 fL 02/09/2024 3:20 PM [facility] Blood BLOOD SPECIMEN / Unknown Venipuncture / Unknown 02/09/2024 1:56 PM LITHOGRAPHIC PROOFER APPRENTICE 02/09/2024 2:25 PM LITHOGRAPHIC PROOFER APPRENTICE Gilberto Benavidez MD LAB - HEMATOLOGY ORD ERABLES [facility] [address] [place] [address] * (ABNORMAL) COMPREHENSIVE METABOLIC PANEL (02/09/2024 1:56 PM LITHOGRAPHIC PROOFER APPRENTICE) Only the most recent of2 resultswithin the time period is included. [facility] Glucose 67(L) 70 - 99 mg/dL 02/09/2024 3:01 PM [facility] Sodium 137 136 - 145 mmol/L 02/09/2024 3:01 PM [facility] Potassium 3.8 3.5 - 5.1 mmol/L 02/09/2024 3:01 PM [facility] Chloride 109(H) 98 - 107 mmol/L 02/09/2024 3:01 PM [facility] CO2 20(L) 22 - 29 mmol/L 02/09/2024 3:01 PM [facility] Calcium 8.9 8.4 - 10.4 mg/dL 02/09/2024 3:01 PM [facility] Anion Gap 8 6 - 16 mmol/L 02/09/2024 3:01 PM [facility] BUN 7 5.3 - 18.7 mg/dL 02/09/2024 3:01 PM [facility] Creatinine 0.58 0.57 - 1.11 mg/dL 02/09/2024 3:01 PM [facility] Alkaline Phosphatase 88 40 - 150 U/L 02/09/2024 3:01 PM [facility] ALT 11 0 - 55 U/L 02/09/2024 3:01 PM [facility] AST 14 5 - 34 U/L 02/09/2024 3:01 PM [facility] Protein Total 6.8 6.4 - 8.3 gm/dL 02/09/2024 3:01 PM [facility] Albumin 2.6(L) 3.4 - 5.0 gm/dL 02/09/2024 3:01 PM [facility] Bilirubin Total 0.3 0.2 - 1.2 mg/dL 02/09/2024 3:01 PM [facility] eGFR by CKD-EPI >90 >=90 mL/min/1.7 3 m2 02/09/2024 3:01 PM [facility] Blood BLOOD SPECIMEN / Unknown Venipuncture / Unknown 02/09/2024 1:56 PM LITHOGRAPHIC PROOFER APPRENTICE 02/09/2024 2:25 PM [facility] Gilberto Benavidez MD LAB - CHEMISTRY COLT[facility] Organization Address City/State/ZIP Co de Phone Number [facility] [address] [place] [address] * (ABNORMAL) CBC W AUTO DIFFERENTIAL (02/07/2024 5:16 AM LITHOGRAPHIC PROOFER APPRENTICE) Only the most recent of2 resultswithin the time period is included. WBC 14.7(H) 4.0 - 10.7 x10E9/L 02/07/2024 5:41 AM [facility] RBC Count 3.95 3.90 - 5.20 x10E12/L 02/07/2024 5:41 AM [facility] Hemoglobin 11.0(L) 11.9 - 15.8 g/dL 02/07/2024 5:41 AM [facility] Hematocrit 33.8(L) 34.8 - 46.1 % 02/07/2024 5:41 AM [facility] MCV 85.6 80.0 - 98.0 fL 02/07/2024 5:41 AM [facility] MCH 27.8 26.7 - 33.6 pg 02/07/2024 5:41 AM [facility] MCHC 32.5 31.7 - 36.3 g/dL 02/07/2024 5:41 AM [facility] RDW-CV 17.0(H) 11.3 - 14.8 % 02/07/2024 5:41 AM [facility] Platelet Count 187 150 - 420 x10E9/L 02/07/2024 5:41 AM [facility] MPV 11.0 7.8 - 11.4 fL 02/07/2024 5:41 AM [facility] Neutrophil % 82.6(H) 41.0 - 74.0 % 02/07/2024 5:41 AM [facility] Lymphocyte % 8.2(L) 17.0 - 47.0 % 02/07/2024 5:41 AM [facility] Monocyte % 8.2 3.0 - 11.0 % 02/07/2024 5:41 AM [facility] Eosinophil % 0.2 0.0 - 7.0 % 02/07/2024 5:41 AM [facility] Basophil % 0.1 0.0 - 1.6 % 02/07/2024 5:41 AM [facility] Immature Granulocytes % 0.7 0.0 - 1.0 % 02/07/2024 5:41 AM [facility] Neutrophil Absolute 12.15(H) 1.60 - 7.50 x10E9/L 02/07/2024 5:41 AM LITHOGRAPHIC PROOFER APPRENTICE [facility] Lymphocyte Absolute 1.21 1.00 - 4.40 x10E9/L 02/07/2024 5:41 AM LITHOGRAPHIC PROOFER APPRENTICE [facility] Monocyte Absolute 1.20(H) 0.15 - 1.00 x10E9/L 02/07/2024 5:41 AM [facility] Eosinophil Absolute 0.03 0.00 - 0.60 x10E9/L 02/07/2024 5:41 AM [facility] Basophil Absolute 0.02 0.00 - 0.13 x10E9/L 02/07/2024 5:41 AM [facility] Blood BLOOD SPECIMEN / Unknown Lab Venipuncture / Unknown 02/07/2024 5:16 AM LITHOGRAPHIC PROOFER APPRENTICE 02/07/2024 5:21 AM [facility] Gilberto Benavidez MD LAB - HEMATOLOGY ORD ERABLES Performing Organization Address City/State/[facility] Co de Phone Number [facility] [address] [place] [phone] * (ABNORMAL) BLOOD GASES CORD ART (ISTAT) (02/07/2024 12:40 AM LITHOGRAPHIC PROOFER APPRENTICE) pH Cord Arterial POCT 7.20 7.20 - 7.34 pH 02/07/2024 12:49 AM [facility] pCO2 Cord Arterial POCT 65.2(H) 45 - 55 mm hg 02/07/2024 12:49 AM [facility] pO2 Cord Arterial POCT 15 12 - 25 mm hg 02/07/2024 12:49 AM [facility] HCO3 Cord Arterial POCT 25.7(H) 22 - 24 mmol/L 02/07/2024 12:49 AM [facility] BE Cord Arterial POCT -4(L) -2.9 - 8.3 mmol/L 02/07/2024 12:49 AM [facility] TCO2 Cord Arterial POCT 28 mmol/L 02/07/2024 12:49 AM LITHOGRAPHIC PROOFER APPRENTICE [facility] O2 Saturation Cord Art % Calc POCT 13 % 02/07/2024 12:49 AM LITHOGRAPHIC PROOFER APPRENTICE [facility] Site CORD ART 02/07/2024 12:49 AM LITHOGRAPHIC PROOFER APPRENTICE [facility] Sample iSTAT CORD ART 02/07/2024 12:49 AM LITHOGRAPHIC PROOFER APPRENTICE [facility] Blood CORD BLOOD SPECIMEN / Unknown 02/07/2024 12:40 AM LITHOGRAPHIC PROOFER APPRENTICE 02/07/2024 12:49 AM LITHOGRAPHIC PROOFER APPRENTICE Gilberto Benavidez MD LAB - POINT OF CARE ORDERABLES [facility] [address] [place] [address] * EPIDURAL BLOCK PERF (02/06/2024 4:56 PM LITHOGRAPHIC PROOFER APPRENTICE) Narrative Christianne Cameron APRN-CRNA - 02/06/2024 4:56 PM LITHOGRAPHIC PROOFER APPRENTICE Christianne Cameron APRN-CRNA 02/06/2024 5:06 PM Neuraxial [...] Time: 2 Staff: Anesthesia Provider: Christianne Cameron APRN-PROCUREMENT INSPECTOR - performed the procedure Robert Oneal MD GENERAL ANESTHESIA O RDERABLES * SYPHILIS ANTIBODY CASCADING REFLEX (02/06/2024 2:53 PM LITHOGRAPHIC PROOFER APPRENTICE) Treponema pallidum Antibody Non Reactive Non Reactive 02/06/2024 3:42 PM LITHOGRAPHIC PROOFER APPRENTICE [facility] Comment: No Laboratory evidence of syphilis infection. Note: Circulating antibodies may be low or undetectable in early infection. If recent exposure is suspected, re-draw sample in 2-4 weeks and repeat testing. Blood BLOOD SPECIMEN / Unknown Venipuncture / Unknown 02/06/2024 2:53 PM LITHOGRAPHIC PROOFER APPRENTICE 02/06/2024 3:04 PM LITHOGRAPHIC PROOFER APPRENTICE Fatmata Waldron MD LAB - SEROLOGY ORDER CARINA Performing Organization Address [facility] Co de Phone Number [facility] [address] [place] [id number] * TYPE + SCREEN PANEL (ALL [facility] except H) (02/06/2024 2:53 PM LITHOGRAPHIC PROOFER APPRENTICE) ABO Rh O POS 02/06/2024 3:40 PM LITHOGRAPHIC PROOFER APPRENTICE [facility] Comment:History checked. Antibody Screen NEG 3:40 PM LITHOGRAPHIC PROOFER APPRENTICE [facility] Blood Bank BLOOD SPECIMEN / Unknown Venipuncture / Unknown 02/06/2024 2:53 PM LITHOGRAPHIC PROOFER APPRENTICE 02/06/2024 3:04 PM LITHOGRAPHIC PROOFER APPRENTICE Fatmata Waldron MD LAB - BLOOD BANK ORD ERABLES Performing Organization Address City/[facility] Co de Phone Number [facility] [address] [place] [address] * CULTURE URINE (01/30/2024 1:43 PM LITHOGRAPHIC PROOFER APPRENTICE) Culture [facility] Comment: CULTURE, URINE, ROUTINE Micro Number: [id number] Test Status: Final Specimen Source: Urine, clean catch Specimen Quality: Adequate Result: No Growth Test Performed at: [address] [id number] MAMIE LIMON MD Urine URINE SPECIMEN OBTAINED BY CLEAN CATCH PROCEDURE / Unknown 01/30/2024 1:43 PM LITHOGRAPHIC PROOFER APPRENTICE 01/31/2024 4:38 AM LITHOGRAPHIC PROOFER APPRENTICE Leidy Valdivia MD LAB - M ICROBIOLOGY ORDERABLES [facility] [address] [place] [address] * URINALYSIS AUTO - POINT OF CARE (AMB) [facility] (01/30/2024 1:32 PM LITHOGRAPHIC PROOFER APPRENTICE) Only the most recent of2 resultswithin the time period is included. Glucose UA negative [facility] [address] Bilirubin UA POCT negative [facility] [address] Ketones UA POCT ++ [facility] [address] Comment:moderate Specific [place] UA 1.[address] [facility] [address] Blood Urine POCT negative [facility] [address] pH UA 6.0 [facility] [address] Protein UA negative [facility] [address] Urobilinogen UA normal [facility] [address] Nitrite UA negative [facility] [address] WBC UA + [facility] [address] Urine URINE / Unknown 01/30/2024 1 :32 PM LITHOGRAPHIC PROOFER APPRENTICE Leidy Valdivia MD LAB - P OINT OF CARE ORDERABLES [facility] [address] [place] [id number] [phone] * HIV-1 HIV-2 ANTIBODY + HIV P24 AG PANEL (12/01/2023 7:22 AM CDT) HIV Screen 4th Generation w Reflex NON-REACT SAMUEL NON-REACT SAMUEL [facility] Comment: HIV-1 antigen and HIV-1/HIV-2 antibodies were [...] purpose. For additional information please refer to http://education.bTendo/faq/FPG292 (This link is being provided for informational/ educational purposes only.) The performance of this assay has not been clinically validated in patients less than 2 years old. Test Performed at: [facility] [address] [place] [address] MAMIE LIMON MD Blood BLOOD SPECIMEN / Unknown 12/01/2023 7:22 AM CDT 12/01/2023 7:22 AM CDT Ruma Haider PASTRY DECORATOR-BIOTECHNOLOGIST LAB - CHEMISTR Y ORDERABLES [facility] [address] [place] [address] * HEPATITIS C ANTIBODY (08/22/2023 10:32 AM CDT) HCV Antibody Screen Non Reactive Non Reactive 08/22/2023 12:42 PM CDT [facility] Blood BLOOD SPECIMEN / Unknown Venipuncture / Unknown 08/22/2023 10:32 AM CDT 08/22/2023 12:00 PM CDT Narrative [facility] - 08/22/2023 12:42 PM CDT Non Reactive - Antibodies to Hepatitis C virus (HCV) were not detected, result does not exclude early acute HCV infection. Shira Andrade MD LAB - CHEMISTR Y ORDERABLES [facility] [address] [place] [address] * PAP THINPREP (02/07/1998 12:00 AM LITHOGRAPHIC PROOFER APPRENTICE) Prostatic Acid Phosphatase WNL @ Dr. Sims' s [facility] Cervical swab (specimen) PART OF UTERINE CERVIX / Unknown 02/07/1998 Narrative [facility] - 02/07/1998 12:00 AM LITHOGRAPHIC PROOFER APPRENTICE This external order was created through the Results Console. Historical Provider LAB - PATHOLOGY/C YTOLOGY ORDERABLES [facility] from Last 3 Months or Most Recently [...] 4:02 PM 12/18/2018 6:29 PM Care Teams Esol Teacher Relationship Specialty Start Date End Date Julian Turcios DO [address] [address] PCP - General Family Medicine 05/27/20
--- OUTSIDE RECORDS SUMMARY | 2024-04-21 16:31 | XMS_ITS | Encounter Summary ---
Author Organization [facility] Address [address] [place] [address] Care Team Providers Care Retirement Specialist Name Role Phone GreenlawnJulian spangler Primary Care Provider [phone] Reason for Visit * Reason Onset Date Comments Order 12/05/2023 Encounter Details Date Type Department Care Team (Late st Contact Info) Description 12/05/2023 Telephone [facility] - STEM ROLLER OPERATOR [address] [place] [address] Ruma Haider APRN-PHOTOENGRAVING FINISHER [address] [place] [address] Order Social History Tobacco Use [...] Recorded Patient Health Questionnaire-2 Score 0 12/09/2023 [facility] [place] of Occupat ional Health - Occupational Stress [...] place to sleep or slept in a care home (including now)? No 08/22/2023 [place] Depression Scale Answer Date Recorded [place] Depression Scale Total 9 08/22/2023 The thought of harming myself has occurred to me . Never 08/22/2023 Education Answer Date Recorded What is the highest level of school you have completed or the highest degree you have received? Bachelor's degree (e.g., BA, AB, BS) 10/10/2019 Comments Yes Sex and Gender Information Value Date Recorded Sex Assigned at Female 04/04/2022 3:36 AM SYSTEMS PROGRAM MANAGER Gender Identity Female 04/04/2022 3:36 AM SYSTEMS PROGRAM MANAGER Sexual Orientation Straight 04/04/2022 3: 36 AM SYSTEMS PROGRAM MANAGER documented as of this encounter Functional Status [...] for pts iron infusion.. Please contact CB# [phone] FX# [phone] do not fax after 4:30 documented in this encounter Plan of Treatment Not on file documented as of this encounter Visit Diagnoses Not on filedocumented in this encounter Care Teams Retirement Specialist Relationship Specialty Start Date End Date Julian Turcios DO [address] [address] PCP - General Family Medicine 05/27/20 documented as of this encounter
--- OUTSIDE RECORDS SUMMARY | 2024-04-21 16:31 | XMS_ITS | Encounter Summary ---
Author Organization [facility] Address [address] [place] [address] Care Team Providers Care Excavator Operator Name Role Phone Trista Dejesus MD Primary Care Provider Unavailable None, Provider Primary Care Provider Unavaila ble Vin Sims MD Primary Care Provider [phone] Encounter Details Date Type Department Care Team (Late st Contact Info) Description 12/11/2016 [place] [address] Trista Dejesus MD Social History Tobacco Use [...] on filedocumented in this encounter Care Teams Excavator Operator Relationship Specialty Start Date End Date Trista Dejesus MD PCP - General 07/12/16 None, ProviderMD PCP - General 05/14/19 12/30/19 Vin Sims MD [address] [address] PCP - General OBGYN 12/31/19 documented as of this encounter
[2024-04-21 17:40] VITALS: PULSE 78
[2024-04-21 17:41] VITALS: BP 116/78; PULSE 81; RESP 19; O2SAT 98
--- NOTE | 2024-04-21 17:43 | ECG_ITS ---
Test Date: 2024-04-21 18:06:38 Measurements Intervals [place] Rate: 87 P: 60 AL: 154 QRS: 14 QRSD: 84 T: 50 QT: 386 QTc: 467 Interpretive Statements SINUS RHYTHM VOLTAGE CRITERIA FOR LVH, CONSIDER NORMAL VARIANT NONSPECIFIC T-WAVE ABNORMALITY Electronically Signed On 04-22-2024 13:59:33 CDT by Ángel Robles D.O
[2024-04-21 17:54] LABS: D Dimer 0.56 ug/mL (<0.48)
[2024-04-21 17:57] LABS: Troponin I < 0.012 ng/mL (0.000-0.034)
[2024-04-21 18:23] VITALS: BP 119/89; PULSE 93; RESP 18; O2SAT 99
[2024-04-21 18:51] VITALS: O2SAT 98
--- NOTE | 2024-04-21 19:18 | ED_ITS ---
HPI - Chest Pain General Chief Complaint: Chest Pain Stated Complaint: R SHOULDER,CHEST,SOB XTD Time Seen by Provider: 04/21/24 16:23 History of Present Illness HPI narrative: 33-year-old female presenting to the emergency depart for evaluation of chest and right-sided shoulder patient is approximately 9 weeks with an uncomplicated vaginal delivery. Denies any fever, chills. She states she feels she may have strained a muscle. Denies any falls or trauma. No complications during her . Denies any pleuritic component to her chest discomfort. Denies any chest pain at this time and denies any fever or chills. States that time she had some chest discomfort radiating down her right arm. She was otherwise in her normal state of health. Related Data Allergies Allergy/AdvReac Type Severity Reaction Status Date / Time prednisone Allergy Swelling Verified 04/21/24 14:19 of Lip/Tongue/Throat Review of Systems 2 Review of Systems: As reviewed above in HPI PMFSH Past Medical History Medical History Anxiety UTI (urinary tract infection) No significant past medical history Surgical History Surgical History No significant past surgical history Family History Family History Other No significant family history Social History Social History Smoking status: Never smoker Alcohol intake: never Substance use: never Living arrangements: with family Gender identity (if verbalized by the patient): Female Exam 2 Narrative: GENERAL: [Well-appearing, well-nourished, and in no acute distress.] HEAD: [Normocephalic, atraumatic.] EYES: [PERRLA and EOMI.] ENT: Nares clear, no rhinorrhea or epistaxis. Mucous membranes moist. NECK: Supple. CHEST: [Clear to auscultation. No respiratory distress.] HEART: [Regular rate and rhythm]. No murmur heard. [Normal peripheral pulses.] ABDOMEN: [Soft, nondistended], [nontender], [No rigidity or guarding] EXTREMITIES: Normal range of motion. [No edema.] SKIN: Warm, dry, no rash. NEURO: [No focal deficits]. Alert and oriented [x3.] PSYCH: [Normal mood and affect.] Course Vital Signs Vital signs: Vital Signs Temperature 36.8 C 04/21/24 14:15 Pulse Rate 104 H 04/21/24 14:15 Respiratory Rate 20 04/21/24 14:15 Blood Pressure 134/98 H 04/21/24 14:15 Pulse Oximetry 100 04/21/24 14:15 Oxygen Delivery Room Air 04/21/24 14:15 Temperature 36.8 C 04/21/24 14:15 Pulse Rate 93 04/21/24 18:23 Respiratory Rate 18 04/21/24 18:23 Blood Pressure 119/89 04/21/24 18:23 Pulse Oximetry 98 04/21/24 18:51 Oxygen Delivery Room Air 04/21/24 18:51 MDM - Chest Pain MDM Narrative Medical decision making narrative: 33-year-old female presenting to the emergency department for evaluation of chest pain and right-sided back/shoulder pain. Denies any falls or injuries. She is approximately 9 weeks . She has normal vital signs without any tachycardia, fever, hypoxia or blood pressure elevations. Her examination is reassuring, clear breath sounds, 2+ symmetric pulses. Considerations presently for musculoskeletal chest pain, back pain, musculoskeletal strain, cervical radiculopathy, pneumonia, pneumothorax, less likely ACS or thromboembolic event such as a pulmonary embolism. Workup was ordered including serial troponins, EKG, D-dimer, CBC, CMP, CT of the neck, chest x-ray. Workup reveals no leukocytosis or anemia. Normal platelet count. D-dimer mildly elevated 0.[address] angiography was ordered. Normal coags otherwise. Electrolytes within normal limits, normal renal function panel. Normal glucose. Normal hepatic function panel. Negative troponin x2. Negative lipase. CT angiography shows no PE, no acute process in the chest. Minor endplate deformities of T6 through T9 likely chronic according to the read. No history of trauma and no tenderness in this area which is reassuring. Cervical spine shows no fractures or traumatic malalignment. X-ray chest x-ray shows no acute cardiopulmonary. EKG without any signs of ischemia. Given her unremarkable workup patient is safe and stable for discharge home at this time with regular PCP follow-up and Tylenol for pain control. Medical Records Data Attestation: I reviewed the patient's medical records. Lab Data Attestation: I reviewed the patient's lab results. 04/21/24 14:20 04/21/24 14:20 Labs: Lab Results 04/21/24 04/21/24 Range/Units 14:20 17:29 WBC 6.7 (4.5-10.0) K/mm3 RBC 4.08 L (4.2-5.4) M/mm3 Hgb 12.0 (12.0-15.0) g/dL Hct 36.1 L (37.0-47.0) % MCV 88.5 (80-100) fl MCH 29.4 (26-34) pg MCHC 33.2 (32-36) g/dl RDW 12.7 (11.5-14.5) % Plt Count 287 D (150-375) k/mm3 MPV 10.1 (7.4-10.4) fl Immature Gran % (Auto) 0.6 H (0-0.5) % Neut % (Auto) 53.8 (45.5-73.1) % Lymph % (Auto) 36.1 (18.3-44.2) % Morehouse % (Auto) 7.4 (2.6-8.5) % Eos % (Auto) 1.8 (0-4.4) % Baso % (Auto) 0.3 (0.2-1.2) % Lymph # (Auto) 2.40 (0.9-3.2) K/mm3 Morehouse # (Auto) 0.5 (0.1-0.6) K/mm3 Eos # (Auto) 0.1 (0-0.3) K/mm3 Baso # (Auto) 0.0 (0.0-0.1) K/mm3 Abs Immat Gran (auto) 0.04 H (0.00-0.031) K/mm3 Absolute Neuts (auto) 3.6 (1.3-6.7) K/mm3 Absolute Nucleated RBC 0.000 (0.0-0.012) K/mm3 Nucleated RBC % 0.0 (0.0-0.2) % PT 13.4 (11.1-14.7) Seconds INR 1.0 APTT 28.6 (22.3-36.8) Seconds D-Dimer 0.56 H (<0.48) ug/mL Sodium 140 (137-145) mmol/L Potassium 3.5 (3.4-5.0) mmol/L Chloride 103 (98-107) mmol/L Carbon Dioxide 22 (22-30) mmol/L Anion Gap 15 H (4-12) mmol/L BUN 6 L (7-17) mg/dL Creatinine 0.65 L (0.7-1.0) mg/dL Estim Creat Clear Calc Not Reportable Estimated GFR > 60 (59 - ) Glucose 109 (65-110) mg/dL Calcium 8.9 (8.4-10.2) mg/dL Total Bilirubin 0.6 (0.2-1.3) mg/dL AST 33 (14-36) U/L ALT 43 H (6-35) U/L Alkaline Phosphatase 102 (38-126) U/L Troponin I < 0.012 < 0.012 (0.000-0.034) ng/mL Total Protein 8.0 (6.3-8.2) g/dL Albumin 4.5 (3.5-5.1) g/dL Lipase 84 (23-300) U/L Imaging Data Attestation: I personally reviewed and interpreted this imaging study as follows: My impression: Impressions Chest X-Ray 04/21/24 15:03 IMPRESSION: No acute cardiopulmonary process. Cervical Spine CT 04/21/24 18:49 IMPRESSION: No acute fracture or traumatic malalignment in the cervical spine. Chest CTA 04/21/24 18:52 IMPRESSION: No CT evidence of acute pulmonary embolus. No acute process detected in the chest. Mild anterior wedge deformity and endplate deformities at T6-T9, likely chronic/physiologic in the absence of pain/tenderness or history of trauma. Discharge Plan Discharge Clinical Impression: Atypical chest pain Patient Disposition: Home, Self-Care Condition: Stable Instructions: Antibiotic Form, Chest Pain (ED) Additional Instructions: Your cardiac workup is unremarkable. No acute pulmonary embolism, no elevated troponins, normal EKG. Your CT scan did find some chronic appearing deformities of T6 through T9 with mild wedge deformities. Radiology's interpretation of this is likely physiologic changes. No acute injuries to explain this. Follow- up with regular doctor. Return with any new or worsening concerns at any time. Patient Language: Kenyan Prescriptions: No Action fluticasone propionate [Flonase Allergy Relief] 50 mcg/actuation spray,suspension 1 spray intranasal DAILY Qty: 16 0RF Rx Instructions: administer into each nostril meclizine 25 mg tablet 25 mg PO BID PRN (Reason: dizziness) Qty: 10 0RF Follow-up/Referrals: Bethany,Vin Arceo MD [Primary Care Provider] - Time of Disposition: 19:23
== END 2024-04-21 19:39 | disposition home or self-care (01) ==
PROVIDERS: Emergency Medicine; Emergency Provider Student in an Organized Health Care Education/Training Program; PCP Obstetrics & Gynecology
DX: R07.89 Other chest pain (principal); Z87.440 Personal history of urinary (tract) infections; R00.0 Tachycardia, unspecified; R94.31 Abnormal electrocardiogram [ECG] [EKG]
CPT/HCPCS: 36415; 71046; 71275; 72125; 80053; 83690; 84484; 85025; 85380; 85610; 85730; 93005; 99284; Q9967

== ENCOUNTER 2024-10-04 09:40 | Emergency (ER) | payer OTHER, SELFPAY ==
--- NOTE | 2024-10-04 09:53 | ED.EAR ---
HPI - Ear Problem General Chief complaint: Ear Stated complaint: EARACHE Time Seen by Provider: 10/04/24 09:53 Source: patient Mode of arrival: ambulatory Limitations: no limitations History of Present Illness HPI Narrative: 34-year-old female presented for complaint of right ear pain. Onset 3 days. Endorses decreased hearing. She denies ear drainage, tinnitus, dizziness, nausea vomiting, fevers or chills. Endorses last we should nasal congestion and drainage. The symptoms have since resolved. Patient is currently . MD Complaint: ear pain Related Data Home Medications ?Medication ?Instructions ?Recorded ?Confirmed ?Last Taken ?Type cholecalciferol (vitamin D3) 25 1,000 unit PO DAILY 10/04/24 Unknown History mcg (1,000 unit) chewable tablet (Vitamin D3) Allergies Allergy/AdvReac Type Severity Reaction Status Date / Time prednisone Allergy Swelling Verified 10/04/24 10:10 of Lip/Tongue/Throat Review of Systems Review of Systems: CONSTITUTIONAL: Denies malaise, chills, or fever. EYES: Denies visual changes, redness, or discharge. ENT: Denies rhinorrhea, congestion, sinus pain, and sore throat. Reports ear pain CARDIOVASCULAR: Denies chest pain, palpitations, or edema. RESPIRATORY: Denies cough or dyspnea. GASTROINTESTINAL: Denies abdominal pain, nausea, vomiting, diarrhea SKIN: Denies rash or itching. MUSCULOSKELETAL: Denies myalgia. NEUROLOGIC: Denies headache. All systems reviewed & are unremarkable except as noted in HPI and below PMFSH Past Medical History Medical History Anxiety UTI (urinary tract infection) No significant past medical history Surgical History Surgical History No significant past surgical history Family History Family History Other No significant family history Social History Social History Smoking status: Never smoker Alcohol intake: never Substance use: never Living arrangements: with family Gender identity (if verbalized by the patient): Female Comments At time of signature, agree with nursing past medical, surgical, social and family history. There is no relevant family history pertinent to the presenting complaint Exam Narrative: GENERAL: Well-appearing HEAD: Normocephalic EYES: PERRLA, conjunctivae clear ENT: Nares clear. Mucous membranes moist. TMs normal light reflex bilaterally; canals not erythematous, no drainage, no tragal tenderness. Oropharynx not erythematous without lesions. no drooling, no hoarseness, no trismus, uvula midline. NECK: Supple. No lymphadenopathy CHEST: Clear to auscultation, breath sounds equal. HEART: Regular rate and rhythm. No murmur heard. SKIN: Warm, dry, no rash. NEURO: Alert and oriented x3. PSYCH: Normal mood and affect Course Course Emergency Course: Patient is aware of diagnosis, understands and agrees to treatment plan. Anticipatory guidance given. Patient agrees to follow-up as directed and is aware of reasons to seek care at the emergency department. Portions of this record may have been created with voice recognition software Level of Care: Express Care Visit Vital Signs Vital signs: Vital Signs Temperature 97.7 F 10/04/24 10:01 Pulse Rate 103 H 10/04/24 10:01 Respiratory Rate 16 10/04/24 10:01 Blood Pressure 117/80 10/04/24 10:01 Pulse Oximetry 100 10/04/24 10:01 Temperature 97.7 F 10/04/24 10:01 Pulse Rate 103 H 10/04/24 10:01 Respiratory Rate 16 10/04/24 10:01 Blood Pressure 117/80 10/04/24 10:01 Pulse Oximetry 100 10/04/24 10:01 Reviewed Medical Decision Making MDM Narrative Medical decision making narrative: Discussed physical exam findings, no otitis media noted. Advised supportive measures and signs/symptoms to go to the ER. Patient is appropriate for outpatient treatment and follow-up. Differential Diagnosis Differential Diagnosis: Coronavirus, strep pharyngitis, allergic rhinitis, upper respiratory tract infection, sinusitis, rhinosinusitis, nasopharyngitis, viral pharyngitis, otitis media, otitis externa, eustachian tube dysfunction, foreign body, cerumen impaction. Vital Signs Vital Signs: Vital Signs Temperature 97.7 F 10/04/24 10:01 Pulse Rate 103 H 10/04/24 10:01 Respiratory Rate 16 10/04/24 10:01 Blood Pressure 117/80 10/04/24 10:01 Pulse Oximetry 100 10/04/24 10:01 Temperature 97.7 F 10/04/24 10:01 Pulse Rate 103 H 10/04/24 10:01 Respiratory Rate 16 10/04/24 10:01 Blood Pressure 117/80 10/04/24 10:01 Pulse Oximetry 100 10/04/24 10:01 Discharge Plan Discharge Clinical Impression: Otalgia of right ear Patient Disposition: Home Condition: Stable Instructions: Antibiotic Form, Earache (ED) Additional Instructions: Recommendations: antihistamine such as Zyrtec or Madelin for sinus congestion Symptomatic treatment includes: rest, fluids, and increase humidity of the air at home. Tylenol as needed to reduce fever, pain Please schedule a follow-up visit with your personal physician If your symptoms persist, change or worsen significantly, go to the emergency department for further evaluation. Patient Language: Ukrainian Prescriptions: No Action cholecalciferol (vitamin D3) [Vitamin D3] 25 mcg (1,000 unit) tablet,chewable 1,000 unit PO DAILY meclizine 25 mg tablet 25 mg PO BID PRN (Reason: dizziness) Qty: 10 0RF Follow-up/Referrals: Karolina,Julian [Other] Time of Disposition: 10:22
[2024-10-04 10:01] VITALS: BP 117/80; PULSE 103; RESP 16; TEMP 36.5; O2SAT 100
== END 2024-10-04 10:27 | disposition home or self-care (01) ==
PROVIDERS: Emergency Provider Nurse Practitioner Family
DX: H92.01 Otalgia, right ear (principal)
CPT/HCPCS: 99213; G0463

== ENCOUNTER 2024-11-25 18:08 | Emergency (ER) | payer OTHER, SELFPAY ==
[2024-11-25 18:27] VITALS: BP 123/91; PULSE 86; RESP 16; TEMP 36.6; O2SAT 100
--- NOTE | 2024-11-25 18:42 | ED.NAVMDI ---
HPI - Nausea/Vomiting/Diarrhea General Chief complaint: Nausea/Vomiting/Diarrhea Stated complaint: chills, nausea, diarrhea, upper back pain Time Seen by Provider: 11/25/24 18:27 Source: patient and RN notes reviewed Mode of arrival: ambulatory Limitations: no limitations History of Present Illness HPI Narrative: 34-year-old female patient presents today complaining of nausea and diarrhea that started this morning. Stools are loose without blood or mucus. Chills began 1 hour prior to arrival. Denies abdominal pain or fever. No OTC treatment prior to arrival. No known sick contacts. 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 Related Data Allergies Allergy/AdvReac Type Severity Reaction Status Date / Time prednisone Allergy Swelling Verified 11/25/24 18:27 of Lip/Tongue/Throat PMFSH Past Medical History Medical History Anxiety UTI (urinary tract infection) No significant past medical history Surgical History Surgical History No significant past surgical history Family History Family History Other No significant family history Social History Social History Smoking status: Never smoker Alcohol intake: never Substance use: never Living arrangements: with family Gender identity (if verbalized by the patient): Female Comments At time of signature, I have reviewed and agree with nursing past medical, surgical, social and family history unless otherwise noted. Please see nursing chart for further information. There is no relevant family history pertinent to the presenting complaint Exam Narrative: GENERAL: Well-appearing, well-nourished, and in no acute distress. HEAD: Normocephalic, atraumatic. EYES: EOMI. No redness or drainage. Conjunctivae normal. ENT: Mucous membranes pink and moist. Throat normal. Uvula midline. NECK: Normal AROM. CHEST: No respiratory distress. Clear to auscultation. HEART: Regular rate and rhythm. No murmur appreciated. ABDOMEN: Soft, nontender, nondistended, normal active bowel sounds. EXTREMITIES: Normal range of motion. No edema. SKIN: Warm, dry, no rash. Capillary refill normal. Normal skin turgor. NEURO: No focal deficits. Alert and oriented x3. Gait steady. PSYCH: Normal affect. No signs of depression or anxiety. Course Course Level of Care: Express Care Visit Vital Signs Vital signs: Vital Signs Temperature 97.9 F 11/25/24 18:27 Pulse Rate 86 11/25/24 18:27 Respiratory Rate 16 11/25/24 18:27 Blood Pressure 123/91 H 11/25/24 18:27 Pulse Oximetry 100 11/25/24 18:27 Temperature 97.9 F 11/25/24 18:27 Pulse Rate 86 11/25/24 18:27 Respiratory Rate 16 11/25/24 18:27 Blood Pressure 123/91 H 11/25/24 18:27 Pulse Oximetry 100 11/25/24 18:27 Reviewed MDM - Nausea/Vomiting/Diarrhea MDM Narrative Medical decision making narrative: 34-year-old female patient presents today complaining of nausea and diarrhea that started this morning. Stools are loose without blood or mucus. Chills began 1 hour prior to arrival. No OTC treatment prior to arrival. Patient attends nursing school and works hospital. Patient's exam is grossly normal. Prescription for Zofran sent to pharmacy for nausea. Patient will continue to orally hydrate with water and electrolyte containing fluids. Recommend not taking any motility agents to stop her diarrhea due to risk of toxic megacolon. Recommend PCP follow-up in 7 days if diarrhea persists. Patient agrees with plan. Vital signs stable. Anticipatory guidance given. ED precautions given. Differential Diagnosis Differential diagnosis: Likely food poisoning, gastroenteritis, dehydration and other (Viral syndrome) Critical Care Time Critical Care Time Critical Care Time: No Discharge Plan Discharge Clinical Impression: Nausea, Diarrhea Patient Disposition: Home Condition: Stable Instructions: Acute Diarrhea (ED) Additional Instructions: Please take the Zofran as prescribed for nausea. Please follow-up with your PCP regarding your diarrhea if it last for longer than 7 days. Go to the ER if your diarrhea contains any blood or mucus. Stay hydrated with water and electrolyte containing fluids. Rest. Patient Language: Ukrainian Prescriptions: New ondansetron 4 mg tablet,disintegrating 4 mg PO TID PRN (Reason: nausea and vomiting) Qty: 15 0RF Follow-up/Referrals: UNKNOWN,DOCTOR [Primary Care Provider] Stand Alone Forms: Work/School Release IP Time of Disposition: 18:45
== END 2024-11-25 18:50 | disposition home or self-care (01) ==
PROVIDERS: Emergency Provider Nurse Practitioner
DX: R11.0 Nausea (principal); R19.7 Diarrhea, unspecified
CPT/HCPCS: 99213; G0463

== ENCOUNTER 2025-01-17 05:16 | Emergency (ER) | payer OTHER, SELFPAY ==
--- NOTE | ~2025-01-17 | US_ITS ---
US abdomen limited Indication: RLQ pain, gb check Comparison: None Technique: D[place] Santos-scale and color Doppler images were obtained. Findings: LIVER: Solid appearing left lobe liver lesion 2.6 x 1.2 x 2.5 cm. . GALLBLADDER/BILIARY: Unremarkable.No cholelithiais, wall thickening or pericholecystic fluid. No biliary dilatation. CBD 3 mm. Sidney sign negative. PANCREAS: Unremarkable. Right Kidney: The right kidney was not imaged. Impression: 1. Solid appearing liver lesion possible hemangioma but incompletely evaluated. Outpatient contrast-enhanced MRI is suggested Reviewed, dictated and finalized at location [employer]. [employer] Impression: 1. Solid appearing liver lesion possible hemangioma but incompletely evaluated. Outpatient contrast-enhanced MRI is suggested
--- NOTE | ~2025-01-17 | US_ITS ---
EXAM/PROCEDURE: US OB <=14 wk fetus w TV HISTORY: evaluate for ectopic and torsion COMPARISON: None available. TECHNIQUE: Directed exam for evaluating possible ectopic and/or torsion LMP: December 11, 2024 EGA by dates 5 weeks 2 days EDC by dates September 17, 2025 FINDINGS: No intrauterine gestation is identified. The uterus measures 8.8 x 4.5 x 5.3 cm Endometrial stripe appears thickened measuring 2.6 cm Right ovary: 3.2 x 2.3 x 2.7 cm. 1.3 cm cyst. The right ovary otherwise appears normal in echotexture and vascular flow. Left ovary: 1.9 x 1.2 x 1.9 cm. Normal vascular flow and echotexture. Small amount of free fluid is seen in the right adnexal region and cervical region. IMPRESSION: 1. Thickened appearance of the endometrial stripe; both ovaries appear normal. 2. No intrauterine gestation identified; correlate with follow-up quantitative hCG levels. Repeat ultrasound examination in 7-10 days or sooner if clinically appropriate, is recommended. Reviewed, dictated and finalized at location [facility]. [employer]
--- OUTSIDE RECORDS SUMMARY | 2025-01-17 05:19 | XMS_ITS | Encounter Summary ---
Author Organization [facility] Address [address] [place] [address] Care Team Providers Care Meter Shop Superintendent Name Role Phone Trista Dejesus MD Primary Care Provider Unavailable None, Provider Primary Care Provider Unavaila ble Vin Sims MD Primary Care Provider [phone] Encounter Details Date Type Department Care Team (Late st Contact Info) Description 12/11/2016 [place] [address] Trista Dejesus MD Social History Tobacco Use [...] on filedocumented in this encounter Care Teams Meter Shop Superintendent Relationship Specialty Start Date End Date Trista Dejesus MD PCP - General 07/12/16 None, ProviderMD PCP - General 05/14/19 12/30/19 Vin Sims MD [address] [address] PCP - General OBGYN 12/31/19 documented as of this encounter
--- OUTSIDE RECORDS SUMMARY | 2025-01-17 05:19 | XMS_ITS | Encounter Summary ---
Author Organization [facility] Address [address] [place] [address] Care Team Providers Care Assisted Living Associate Name Role Phone KarolinaJulian Primary Care Provider [phone] Reason for Visit * Reason Onset Date Comments Future Appointment 09/12/2023 Pt needs to r eschedule appts Encounter Details Date Type Department Care Team (Late st Contact Info) Description 09/12/2023 Telephone [facility] - Centralized Scheduling [address] [place] [address] Leidy Valdivia MD [address] [address] Future Appointment (Pt needs to [...] and heating? Not hard at all 08/22/2023 [facility] - Occupational Stress [...] in a fpc (including now)? No 08/22/2023 [place] Depression Scale Answer Date Recorded [place] Depression Scale Total 9 08/22/2023 The thought of harming myself has occurred to me . Never 08/22/2023 Education Answer Date Recorded What is the highest level of school you have completed or the highest degree you have received? Bachelor's degree (e.g., BA, AB, BS) 10/10/2019 Comments Yes Sex and Gender Information Value Date Recorded Sex Assigned at Female 04/04/2022 3:36 AM VICE PRESIDENT [employer]OP[employer] Legal Sex Female 6:11 AM VICE PRESIDENT [employer]OP[employer] Gender Identity Female 04/04/2022 3:36 AM VICE PRESIDENT [employer] DEVELOPMENT Sexual Orientation Straight 04/04/2022 3: 36 AM VICE PRESIDENT BUSINESS DEVELOPMENT Occupation Industry Job Start Date Job End Date seated computer [employer] Not on file Not on file Not on f ile documented as of this encounter Functional Status * Is person deaf or have serious hearing difficulty? Answer Date of Assessment Author No 01/14/2019 1:17 AM Rosy Pelletier RN * Is person blind or have serious difficulty seeing? Answer Date of Assessment Author No 01/14/2019 1:17 AM Rosy Pelletier RN * Does person have serious difficulty walking/climbing stairs? Answer Date of Assessment Author No 01/14/2019 1:17 AM Rosy Pelletier RN * Does person have difficulty dressing/bathing? Answer Date of Assessment Author No 01/14/2019 1:17 AM Rosy Pelletier RN * Does person have difficulty doing errands alone? Answer Date of Assessment Author No 01/14/2019 1:17 AM Rosy Pelletier RN documented as of this encounter Mental Status * Does person have difficulty concentrating/remembering/making decisions? Answer Entry Date Author No 01/14/2019 1:17 AM Rosy Pelletier RN documented in this encounter Miscellaneous Notes * Telephone Encounter - Alysha Huff - 09/12/2023 10:50 AM CDT Current Provider: n/a Reason for Call: pt made NEW OB appt and whomever she spoke with scheduled her at [facility]. Pt would like to continue being seen at [address]. She was seen by M back in 2019. I am unsure if we would see her there or general. Please assist. Patient Call Back Number: [phone] documented in this encounter Plan of Treatment Not on file documented as of this encounter Visit Diagnoses Not on filedocumented in this encounter Care Teams Assisted Living Associate Relationship Specialty Start Date End Date Julian Turcios DO [address] [address] PCP - General Family Medicine 05/27/20 documented as of this encounter
--- OUTSIDE RECORDS SUMMARY | 2025-01-17 05:19 | XMS_ITS | Encounter Summary ---
Author Organization [facility] Health Address [address] [place] [address] Care Team Providers Care Photographer Finish Name Role Phone Vin Sims MD Primary Care Provider [phone] Julian Turcios DO Primary Care Provider [phone] Reason for Visit * Reason Onset Date Comments Update 12/27/2018 Encounter Details Date Type Department Care Team (Late st Contact Info) Description 12/27/2018 Telephone [facility] MATERNAL/ EVALUATION UNIT [address] [place] [address] Micaela Esteves, OFFICE [facility] [address] [facility] [facility] [address] [place] [address] Update Social History Tobacco Use Types Packs/Day Years Used Date Smoking Tobacco: Never Smokeless Tobacco: Never Alcohol Use Standard Drinks/Week Comments No 0 (1 standard drink = 0.6 oz pur e alcohol) Comments Yes Sex and Gender Information Value Date Recorded Sex Assigned at Female 04/04/2022 3:36 AM CAD DESIGNER Legal Sex Female 6:11 AM CAD DESIGNER Gender Identity Female 04/04/2022 3:36 AM CAD DESIGNER Sexual Orientation Straight 04/04/2022 3: 36 AM CAD DESIGNER documented as of this encounter Functional Status * Is person deaf or have serious hearing difficulty? Answer Date of Assessment Author No 12/26/2018 1:28 PM CAD DESIGNER Odalys Saunders RN * Is person blind or have serious difficulty seeing? Answer Date of Assessment Author No 12/26/2018 1:28 PM Odalys Caledron RN * Does person have serious difficulty walking/climbing stairs? Answer Date of Assessment Author No 12/26/2018 1:28 PM Odalys Calderon RN * Does person have difficulty dressing/bathing? Answer Date of Assessment Author No 12/26/2018 1:28 PM Odalys Calderon RN * Does person have difficulty doing errands alone? Answer Date of Assessment Author No 12/26/2018 1:28 PM Odalys Calderon RN documented as of this encounter Mental Status * Does person have difficulty concentrating/remembering/making decisions? Answer Entry Date Author No 12/26/2018 1:28 PM Odalys Calderon RN documented in this encounter Plan of Treatment Not on file documented as of this encounter Visit Diagnoses Not on filedocumented in this encounter Care Teams Photographer Finish Relationship Specialty Start Date End Date Vin Sims MD [address] [address] PCP - General Obstetrics and Gynecology 09/03/1805/08 Julian Turcios DO [address] [place] [id number] PCP - General Family Medicine 05/27/20 documented as of this encounter
--- OUTSIDE RECORDS SUMMARY | 2025-01-17 05:19 | XMS_ITS | Clinical Summary ---
Author Organization [facility] Address [facility] [place] [address] Care Team Providers Care Marketing And Outreach Coordinator Name Role Phone Unknown, Notinfile Primary Care Provider Unavail able Allergies Active Allergy Reactions Criticality Noted Date Comments Prednisone Swelling Medium 09/18/2022 Medications [id number] -epa-fish oil 400 mcg-35 mg -25 mg-5 [...] History Medical History Date Comments Diabetes mellitus Type 2 DM. Dx after of baby in 2016. 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 Gender Identity Not on file Sexual Orientation [...] 9 CONCEPCIÓN Allred,Queenie Palumbo MD Complications:None Delivery Location:[facility] ([facility]) 2020 Term 40w 0d Vag-S pont Livin [...] 1:21 AM CDT Height 144.8 cm (4' 9) 09/20/2023 1:21 AM CDT Body Mass Index 36.57 09/20/2023 1:21 AM CDT Plan of Treatment Health Maintenance Due Date Last Done Comments Depression Screening 1989 Hepatitis C Screening 1989 Cervical Cancer Screening 02/07/1999 02/07/1998 Varicella Vaccines (1 of 2 - 13+ 2-dose series) 2002 Hepatitis B Screening 08/01/2007 Regular Well Visit/Exam 18-64 08/01/2007 HPV Vaccines (1 - 3-dose SCD M series) 2016 Influenza Vaccine (#1) 2024 DTaP/Tdap/Td Vaccine (4 - Td or Tdap) 09/18/2032 09/18/2022, 12/20/2018, 07/08/2014 Pneumococcal vaccine <65 Aged Out No longer eligible based on patient's age to complete this topic Insurance IDPA [facility] CHOICE PLUS IDPA [facility] CHOICE PLUS [place] [id number] [facility] CHOICE PLUS IDPA Advance Directives For more information, please contact: [phone] * Full Code (Latest Code Status on File) Date Activated Date Inactivated Comments 01/17/2019 9:44 AM 01/19/2019 6:20 PM * Full Code Date Activated Date Inactivated Comments 01/16/2019 11:24 AM 01/17/2019 9:43 AM Full CPR in case of cardiopulmonary arrest Care Teams Marketing And Outreach Coordinator Relationship Specialty Start Date End Date Unknown, Notinfile PCP - General 01/14/19
--- OUTSIDE RECORDS SUMMARY | 2025-01-17 05:19 | XMS_ITS | Encounter Summary ---
Author Organization [facility] Address [address] [place] [address] Care Team Providers Care County Historian Name Role Phone Vin Sims MD Primary Care Provider [phone] Encounter Details Date Type Department Care Team (Late st Contact Info) Description 03/16/2020 Hospital Follow-up Call [facility] [place] [address] [place] [address] Susie Espinosa, RN Social History Tobacco Use [...] 5 03/09/2020 Last EPDS Self Harm Result Unrecognized value Comments No Sex and Gender Information Value Date Recorded Sex Assigned at Not on file Legal Sex Female 7:31 PM CDT Gender Identity Not on file Sexual Orientation Not on file COVID-19 Exposure Response Date Recorded In the last month, have you been in contact with someone who was confirmed or suspected to have Coronavirus / COVID-19? No / Unsure 03/08/2020 3:30 AM FURNACE SETTER documented as of this encounter Functional Status * RETIRED Are you deaf or do you have serious difficulty hearing Answer Date of Assessment Author Status No 03/08/2020 4:25 AM FURNACE SETTER Activ e * RETIRED Are you blind or do you have serious difficulty seeing, even when wearing glasses? Answer Date of Assessment Author Status No 03/08/2020 4:25 AM FURNACE SETTER Activ e * Do you have serious difficulty walking or climbing stairs? Answer Date of Assessment Author Status No 03/08/2020 4:25 AM FURNACE SETTER Krystin Carrillo RN A ctive * Do you have difficulty dressing or bathing? Answer Date of Assessment Author Status No 03/08/2020 4:25 AM FURNACE SETTER Krystin Carrillo RN A ctive * Because [...] on filedocumented in this encounter Care Teams County Historian Relationship Specialty Start Date End Date Vin Sims MD [address] [address] PCP - General OBGYN 12/31/19 documented as of this encounter
--- OUTSIDE RECORDS SUMMARY | 2025-01-17 05:19 | XMS_ITS | Clinical Summary ---
Author Organization [facility] Address [address] [place] [address] Care Team Providers Care Anode Crew Supervisor Name Role Phone Vin Sims MD Primary Care Provider [phone] Allergies No known active allergies Medications vitamin 27-1 MG Tab tablet Take 1 tablet by mouth daily. Active vitamin D3, cholecalciferol , 10 MCG (400 UNIT) tablet Take 100 Units by mouth daily. Active Ascorbic Acid (VITAMIN C) 100 MG tablet Take 750 mg by mouth daily. Active benzocaine-ment hol 20-0.5 % AerosolIndicati ons:Normal course (HHS/HCC) Apply 1 spray topically 4 (four) times daily as needed (Perineal discomfort). 1 each 1 Active docusate sodium 100 MG capsuleIndicati ons:Normal course (HHS/HCC) Take 1 capsule (100 mg total) by mouth 2 (two) times daily as needed for Constipation. 30 capsule 1 Active HYDROcodone-luis alberto taminophen 5-325 MG tabletIndicatio ns:Acute Pain < 7 Day Supply Take 1 tablet by mouth every 6 (six) hours as needed. Indications: Acute Pain < 7 Day Supply 10 tablet 1 Active Active Problems Problem Noted Date Diagnosed Date 03/08/2020 Labor and delivery indication for care or interv ention 02/24/2020 Social History Tobacco Use Types Packs/Day [...] Comments Blood Pressure 116/82 03/09/2020 8:00 AM BUNDLE SORTER Pulse 72 03/09/2020 8:00 AM BUNDLE SORTER Temperature 36.7 C (98.1 F) 03/09/2020 8:00 AM BUNDLE SORTER Respiratory Rate 20 03/09/2020 8:00 AM BUNDLE SORTER Oxygen Saturation 100% 03/09/2020 12:35 AM BUNDLE SORTER Inhaled Oxygen Concentration - - Weight 79.8 kg (176 lb) 03/08/2020 2:23 AM BUNDLE SORTER Height 149.9 cm (4' 11.02) 03/08/2020 2:[address] Body Mass Index 35.53 03/08/2020 2:23 AM BUNDLE SORTER Plan of Treatment Health Maintenance Due Date Last Done Comments Annual Physical 1992 Hepatitis C 08/01/2007 Hepatitis B Vaccines (1 of 3 - 19+ 3-dose series) 2008 HPV Vaccines (1 - 3-dose SCD M series) 2016 Cervical Cancer Screening Pa p with HPV Testing (Age 30 to 64) Every 5 Years 08/01/2019 Cervical Cancer Screening Pa p Smear (Age 30 to 64) Every 3 Years 12/18/2021 12/18/2018 Cervical Cancer Screening wi th HPV 12/18/2021 COVID-19 Vaccine (1 - 2024-2 6 season) 2024 Influenza Adult (#1) 2024 DTaP, Tdap and Td Vaccines ( 3 - Td or Tdap) 12/20/2028 12/20/2018, 07/08/2014 Hepatitis A Vaccines Aged Out No long er eligible based on patient's age to complete this topic Meningococcal B Vaccine Aged Out No l onger eligible based on patient's age to complete this topic Meningococcal Vaccine Aged Out No jamir cassie eligible based on patient's age to complete this topic Pneumococcal Vaccine: Pediatrics (0 to 5 Years) and At-Risk Patients (6 to 49 Years) Aged Out No longer eligible b ased on patient's age to complete this topic RSV Immunizations Under 20 Months Aged Out No longer eligible b ased on patient's age to complete this topic Insurance MEDICAID DEPT OF [address] Advance Directives * Full Code (Latest Code Status on File) Date Activated Date Inactivated Comments 03/08/2020 2:04 AM 03/09/2020 8:18 PM Care Teams Anode Crew Supervisor Relationship Specialty Start Date End Date Vin Sims MD [address] [address] PCP - General OBGYN 12/31/19
--- OUTSIDE RECORDS SUMMARY | 2025-01-17 05:19 | XMS_ITS | Encounter Summary ---
Author Organization [facility] Health Address [address] [facility] [place] [address] Care Team Providers Care Hvac Lead Name Role Phone KarolinaJulian Primary Care Provider [phone] Reason for Visit * Reason Onset Date Comments Order 12/05/2023 Encounter Details Date Type Department Care Team (Late st Contact Info) Description 12/05/2023 Telephone [facility] - [facility] [address] [place] [address] Ruma Haider APRN-RETAIL FINANCIAL ANALYST [address] [place] [address] Order Social History Tobacco Use [...] Recorded Patient Health Questionnaire-2 Score 0 12/09/2023 [facility] Beals of Occupat ional Health - Occupational Stress [...] place to sleep or slept in a snf (including now)? No 08/22/2023 [place] Depression Scale Answer Date Recorded [place] Depression Scale Total 9 08/22/2023 The thought of harming myself has occurred to me . Never 08/22/2023 Education Answer Date Recorded What is the highest level of school you have completed or the highest degree you have received? 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 Please contact # [phone] FX# [phone] do not fax after 4:30 documented in this encounter Plan of Treatment Not on file documented as of this encounter Visit Diagnoses Not on filedocumented in this encounter Care Teams Hvac Lead Relationship Specialty Start Date End Date Julian Turcios DO [address] [address] PCP - General Family Medicine 05/27/20 documented as of this encounter
[2025-01-17 05:21] VITALS: BP 125/96; PULSE 98; RESP 18; TEMP 36.3; O2SAT 100
--- NOTE | 2025-01-17 05:28 | ED_ITS ---
HPI - Abdominal Pain General Chief Complaint: Abdominal Pain <Carlos Goemz DO - Last Filed: 01/17/25 06:37> Stated Complaint: R groin pain <Carlos Gomez DO - Last Filed: 01/17/25 06:37> Time Seen by Provider: 01/17/25 05:27 <Carlos Gomez DO - Last Filed: 01/17/25 06:37> Source: patient and family <Carlos Gomez DO - Last Filed: 01/17/25 06:37> Mode of arrival: ambulatory <Carlos Gomez DO - Last Filed: 01/17/25 06:37> Limitations: no limitations <Carlos Gomez DO - Last Filed: 01/17/25 06:37> History of Present Illness HPI narrative: Patient is a 34-year-old female presents to the emergency department complaining abdominal pain. Patient points to her right lower quadrant as the location of the discomfort, started about 24 hours ago, seems to be constant, describes it as a radiating pain, taking Motrin for it and has not gone away. Notes her last menstrual period was December 11, point of care test is positive which makes patient A1, denies any history of ectopic pregnancies, when she goes to OB is typically through [facility]. Denies any dysuria, urinary frequency, urinary urgency. Notes that she has some slight right shoulder discomfort over the past 24 hours. Admits to having regular bowel movements. Denies any fevers, nausea, vomiting. Denies any recent injuries or recent illness. <Carlos Gomez DO - Last Filed: 01/17/25 06:37> Related Data Allergies/Adverse Reactions: Allergies Allergy/AdvReac Type Severity Reaction Status Date / Time prednisone Allergy Swelling Verified 11/25/24 18:27 of Lip/Tongue/Throat <Carlos Gomez DO - Last Filed: 01/17/25 06:37> Review of Systems 2 Review of Systems: A 10 system review of systems was completed on the patient and is negative except for what is stated in the HPI. Nursing and ancillary documentation was reviewed. <Carlos Gomez DO - Last Filed: 01/17/25 06:37> PMFSH Past Medical History Medical History: Medical History (Reviewed 11/25/24 @ 18:47 by Darcie Sylvester, [facility], ) Anxiety UTI (urinary tract infection) No significant past medical history <Carlos Gomez DO - Last Filed: 01/17/25 06:37> Surgical History Surgical History: Surgical History (Reviewed 11/25/24 @ 18:47 by Darcie Sylvester, [facility], ) No significant past surgical history <Carlos Gomez DO - Last Filed: 01/17/25 06:37> Family History Family History: Family History (Reviewed 11/25/24 @ 18:47 by Darice Sylvester, [facility], ) Other No significant family history <Carlos Gomez, DO - Last Filed: 01/17/25 06:37> Social History Social History: Social History (Reviewed 11/25/24 @ 18:47 by Darcie Sylvester, [employer], [facility]) Smoking status: Never smoker Alcohol intake: never Substance use: never Living arrangements: with family Gender identity (if verbalized by the patient): Female <Carlos Gomez DO - Last Filed: 01/17/25 06:37> Exam 2 Narrative: CONST: No acute distress. Well nourished. HENMT: Head is normocephalic and atraumatic. Moist mucous membranes. No posterior oropharynx erythema. EYES: No scleral icterus. No conjunctival injection or pallor. PERRL. NECK: No meningeal signs. RESP: Able to speak in full sentences. Normal respiratory effort. CTAB. CARDIO: Regular rate. Regular rhythm. 2+ DP and radial pulses bilaterally. GI: Nondistended. Mild tenderness to palpation in the right lower quadrant. Soft. No rebound or guarding or rigidity. : No CVA tenderness to palpation. SKIN: No rashes or lesions noted on exposed skin. NEURO: Oriented x3. Moves all extremities. EXTREM/MSK/BACK: No pedal edema. PSYCH: Normal affect. <Carlos Gomez DO - Last Filed: 01/17/25 06:37> Course Course Emergency Course: Patient resting comfortably. Informed results. Pain is mainly in the inguinal crease. Thickened endometrial stripe but visually and is not readily identified. She needs to follow up closely with her whiskey regauger for repeat lab testing and imaging. Patient verbalized understanding of this. She is not having bleeding. She has a follow-up already scheduled in 5 days. We have tried contacting her insurance solicitor Dr. Mohamud in [place], but his office is not open today. <Ben Anaya MD - Last Filed: 01/17/25 09:52> Vital Signs Vital signs: Vital Signs Temperature 97.4 F L 01/17/25 05:21 Pulse Rate 98 01/17/25 05:21 Respiratory Rate 18 01/17/25 05:21 Blood Pressure 125/96 H 01/17/25 05:21 Pulse Oximetry 100 01/17/25 05:21 Temperature 97.8 F 01/17/25 06:02 Pulse Rate 83 01/17/25 07:00 Respiratory Rate 18 01/17/25 07:00 Blood Pressure 115/83 01/17/25 07:00 Pulse Oximetry 100 01/17/25 07:00 <Carlos Gomez DO - Last Filed: 01/17/25 06:37> Vital Signs Temperature 97.4 F L 01/17/25 05:21 Pulse Rate 98 01/17/25 05:21 Respiratory Rate 18 01/17/25 05:21 Blood Pressure 125/96 H 01/17/25 05:21 Pulse Oximetry 100 01/17/25 05:21 Temperature 97.8 F 01/17/25 06:02 Pulse Rate 83 01/17/25 07:00 Respiratory Rate 18 01/17/25 07:00 Blood Pressure 115/83 01/17/25 07:00 Pulse Oximetry 100 01/17/25 07:00 <Ben Anaya MD - Last Filed: 01/17/25 09:52> MDM MDM Narrative Medical decision making narrative: Patient presents with the above complaint. Initial vitals are remarkable for no significant abnormalities. Physical examination as noted above. Plan discussed: laboratory analysis, imaging. Patient ordered continuous cardiac monitoring, continuous pulse oximetry. First urinalysis appears like a dirty sample, given the patient does not have any UTI symptoms however is will repeat the urinalysis with a clean- catch as patient would need antibiotics if it is still positive within not being a dirty sample. 07:00 - Patient signed out to oncoming physician Dr. Anaya at shift change. < Carlos Gomez DO - Last Filed: 01/17/25 06:37> Differential Diagnosis Differential Diagnosis: , ectopic , ureterolithiasis, UTI, appendicitis, cholecystitis, cholelithiasis, hepatobiliary pathology, other acute surgical abdominal process. <Carlos Gomez, DO - Last Filed: 01/17/25 06:37> Lab Data MDM Lab Attestation statement: I personally reviewed the patient's lab results. <Carlos Gomez, DO - Last Filed: 01/17/25 06:37> Lab results narrative: CBC is without any significant abnormalities. Coags are within normal limits. Comprehensive metabolic panel reveals a sodium 135, bicarb of 21, AST of 46. Lipase 74. Magnesium is 1.7. Urinalysis has a cloudy appearance with trace ketones, trace leukocyte esterase, 11-20 wbc's, 1+ bacteria, moderate squamous epithelial cells. test is positive. <Carlos Gomez DO - Last Filed: 01/17/25 06:37> Result diagrams: 01/17/25 05:43 01/17/25 05:43 <Carlos Gomez DO - Last Filed: 01/17/25 06:37> Labs: Lab Results 01/17/25 01/17/25 01/17/25 Range/Units 05:34 05:43 05:43 WBC 6.2 (4.5-10.0) K/mm3 RBC 4.05 L (4.2-5.4) M/mm3 Hgb 12.0 (12.0-15.0) g/dL Hct 35.8 L (37.0-47.0) % MCV 88.4 (80-100) fl MCH 29.6 (26-34) pg MCHC 33.5 (32-36) g/dl RDW 12.3 (11.5-14.5) % Plt Count 306 (150-375) k/mm3 MPV 10.2 (7.4-10.4) fl Immature Gran % (Auto) 0.3 (0-0.5) % Neut % (Auto) 54.3 (45.5-73.1) % Lymph % (Auto) 35.4 (18.3-44.2) % [place] % (Auto) 7.9 (2.6-8.5) % Eos % (Auto) 1.8 (0-4.4) % Baso % (Auto) 0.3 (0.2-1.2) % Lymph # (Auto) 2.19 (0.9-3.2) K/mm3 [place] # (Auto) 0.5 (0.1-0.6) K/mm3 Eos # (Auto) 0.1 (0-0.3) K/mm3 Baso # (Auto) 0.0 (0.0-0.1) K/mm3 Abs Immat Gran (auto) 0.02 (0.00-0.031) K/mm3 Absolute Neuts (auto) 3.4 (1.3-6.7) K/mm3 Absolute Nucleated RBC 0.000 (0.0-0.012) K/mm3 Nucleated RBC % 0.0 (0.0-0.2) % PT 13.3 (11.1-14.7) Seconds INR 1.0 APTT 30.7 (22.3-36.8) Seconds Sodium 135 L (137-145) mmol/L Potassium 3.4 (3.4-5.0) mmol/L Chloride 107 (98-107) mmol/L Carbon Dioxide 21 L (22-30) mmol/L Anion Gap 7 (4-12) mmol/L BUN 9 (7-17) mg/dL Creatinine 0.61 L (0.7-1.0) mg/dL Estim Creat Clear Calc Not Reportable Estimated GFR > 60 (59 - ) Glucose 92 (65-110) mg/dL Calcium 9.0 (8.4-10.2) mg/dL Magnesium 1.7 (1.6-2.3) mg/dL Total Bilirubin 0.8 (0.2-1.3) mg/dL AST 46 H (14-36) U/L ALT 22 (6-35) U/L Alkaline Phosphatase 80 (38-126) U/L Total Protein 8.0 (6.3-8.2) g/dL Albumin 4.3 (3.5-5.1) g/dL Lipase 74 (23-300) U/L Beta HCG, Quant 164.51 Cancelled mIU/ML Urine Color Yellow (Yellow) Urine Appearance Cloudy H (Clear) Urine pH 5.5 (5.0-9.0) Ur Specific [place] 1.023 (1.001-1.035) Urine Protein Trace (Negative) mg/dL Urine Glucose (UA) Negative (Negative) mg/dL Urine Ketones Trace H (Negative) mg/dL Ur Blood (Man) Negative (Negative) Urine Nitrate Negative (Negative) Urine Bilirubin Negative (Negative) Urine Urobilinogen 1.0 (<2.0) mg/dL Ur Leukocyte Esterase (Negative) ELLIOTT/UL Leukocyte Esterase Rfl Trace H (Negative) ELLIOTT/UL Urine RBC 0-2 (0-2) /hpf Urine WBC 11-20 H (0-3) /hpf Ur Squamous Epith Cells Moderate (Few) /hpf Urine Bacteria 1+ H /hpf Urine Casts 0-2 POC Urine HCG, Qual Positive (Negative) 01/17/25 Range/Units 06:35 WBC (4.5-10.0) K/mm3 RBC (4.2-5.4) M/mm3 Hgb (12.0-15.0) g/dL Hct (37.0-47.0) % MCV (80-100) fl MCH (26-34) pg MCHC (32-36) g/dl RDW (11.5-14.5) % Plt Count (150-375) k/mm3 MPV (7.4-10.4) fl Immature Gran % (Auto) (0-0.5) % Neut % (Auto) (45.5-73.1) % Lymph % (Auto) (18.3-44.2) % [place] % (Auto) (2.6-8.5) % Eos % (Auto) (0-4.4) % Baso % (Auto) (0.2-1.2) % Lymph # (Auto) (0.9-3.2) K/mm3 [place] # (Auto) (0.1-0.6) K/mm3 Eos # (Auto) (0-0.3) K/mm3 Baso # (Auto) (0.0-0.1) K/mm3 Abs Immat Gran (auto) (0.00-0.031) K/mm3 Absolute Neuts (auto) (1.3-6.7) K/mm3 Absolute Nucleated RBC (0.0-0.012) K/mm3 Nucleated RBC % (0.0-0.2) % PT (11.1-14.7) Seconds INR APTT (22.3-36.8) Seconds Sodium (137-145) mmol/L Potassium (3.4-5.0) mmol/L Chloride (98-107) mmol/L Carbon Dioxide (22-30) mmol/L Anion Gap (4-12) mmol/L BUN (7-17) mg/dL Creatinine (0.7-1.0) mg/dL Estim Creat Clear Calc Estimated GFR (59 - ) Glucose (65-110) mg/dL Calcium (8.4-10.2) mg/dL Magnesium (1.6-2.3) mg/dL Total Bilirubin (0.2-1.3) mg/dL AST (14-36) U/L ALT (6-35) U/L Alkaline Phosphatase (38-126) U/L Total Protein (6.3-8.2) g/dL Albumin (3.5-5.1) g/dL Lipase (23-300) U/L Beta HCG, Quant mIU/ML Urine Color Dark yellow (Yellow) Urine Appearance Clear (Clear) Urine pH 5.5 (5.0-9.0) Ur Specific [place] 1.037 H (1.001-1.035) Urine Protein Trace (Negative) mg/dL Urine Glucose (UA) Negative (Negative) mg/dL Urine Ketones 1+ H (Negative) mg/dL Ur Blood (Man) Negative (Negative) Urine Nitrate Negative (Negative) Urine Bilirubin Negative (Negative) Urine Urobilinogen 1.0 (<2.0) mg/dL Ur Leukocyte Esterase Negative (Negative) ELLIOTT/UL Leukocyte Esterase Rfl (Negative) ELLIOTT/UL Urine RBC 3-5 H (0-2) /hpf Urine WBC 0-5 (0-3) /hpf Ur Squamous Epith Cells Moderate (Few) /hpf Urine Bacteria 1+ H /hpf Urine Casts 0-2 POC Urine HCG, Qual (Negative) <Carlos Gomez, - Last Filed: 01/17/25 06:37> Lab Results 01/17/25 01/17/2525 Range/Units 05:34 05:43 05:43 WBC 6.2 (4.5-10.0) K/mm3 RBC 4.05 L (4.2-5.4) M/mm3 Hgb 12.0 (12.0-15.0) g/dL Hct 35.8 L (37.0-47.0) % MCV 88.4 (80-100) fl MCH 29.6 (26-34) pg MCHC 33.5 (32-36) g/dl RDW 12.3 (11.5-14.5) % Plt Count 306 (150-375) k/mm3 MPV 10.2 (7.4-10.4) fl Immature Gran % (Auto) 0.3 (0-0.5) % Neut % (Auto) 54.3 (45.5-73.1) % Lymph % (Auto) 35.4 (18.3-44.2) % [place] % (Auto) 7.9 (2.6-8.5) % Eos % (Auto) 1.8 (0-4.4) % Baso % (Auto) 0.3 (0.2-1.2) % Lymph # (Auto) 2.19 (0.9-3.2) K/mm3 [place] # (Auto) 0.5 (0.1-0.6) K/mm3 Eos # (Auto) 0.1 (0-0.3) K/mm3 Baso # (Auto) 0.0 (0.0-0.1) K/mm3 Abs Immat Gran (auto) 0.02 (0.00-0.031) K/mm3 Absolute Neuts (auto) 3.4 (1.3-6.7) K/mm3 Absolute Nucleated RBC 0.000 (0.0-0.012) K/mm3 Nucleated RBC % 0.0 (0.0-0.2) % PT 13.3 (11.1-14.7) Seconds INR 1.0 APTT 30.7 (22.3-36.8) Seconds Sodium 135 L (137-145) mmol/L Potassium 3.4 (3.4-5.0) mmol/L Chloride 107 (98-107) mmol/L Carbon Dioxide 21 L (22-30) mmol/L Anion Gap 7 (4-12) mmol/L BUN 9 (7-17) mg/dL Creatinine 0.61 L (0.7-1.0) mg/dL Estim Creat Clear Calc Not Reportable Estimated GFR > 60 (59 - ) Glucose 92 (65-110) mg/dL Calcium 9.0 (8.4-10.2) mg/dL Magnesium 1.7 (1.6-2.3) mg/dL Total Bilirubin 0.8 (0.2-1.3) mg/dL AST 46 H (14-36) U/L ALT 22 (6-35) U/L Alkaline Phosphatase 80 (38-126) U/L Total Protein 8.0 (6.3-8.2) g/dL Albumin 4.3 (3.5-5.1) g/dL Lipase 74 (23-300) U/L Beta HCG, Quant 164.51 Cancelled mIU/ML Urine Color Yellow (Yellow) Urine Appearance Cloudy H (Clear) Urine pH 5.5 (5.0-9.0) Ur Specific [place] 1.023 (1.001-1.035) Urine Protein Trace (Negative) mg/dL Urine Glucose (UA) Negative (Negative) mg/dL Urine Ketones Trace H (Negative) mg/dL Ur Blood (Man) Negative (Negative) Urine Nitrate Negative (Negative) Urine Bilirubin Negative (Negative) Urine Urobilinogen 1.0 (<2.0) mg/dL Ur Leukocyte Esterase (Negative) ELLIOTT/UL Leukocyte Esterase Rfl Trace H (Negative) ELLIOTT/UL Urine RBC 0-2 (0-2) /hpf Urine WBC 11-20 H (0-3) /hpf Ur Squamous Epith Cells Moderate (Few) /hpf Urine Bacteria 1+ H /hpf Urine Casts 0-2 POC Urine HCG, Qual Positive (Negative) 01/17/25 Range/Units 06:35 WBC (4.5-10.0) K/mm3 RBC (4.2-5.4) M/mm3 Hgb (12.0-15.0) g/dL Hct (37.0-47.0) % MCV (80-100) fl MCH (26-34) pg MCHC (32-36) g/dl RDW (11.5-14.5) % Plt Count (150-375) k/mm3 MPV (7.4-10.4) fl Immature Gran % (Auto) (0-0.5) % Neut % (Auto) (45.5-73.1) % Lymph % (Auto) (18.3-44.2) % [place] % (Auto) (2.6-8.5) % Eos % (Auto) (0-4.4) % Baso % (Auto) (0.2-1.2) % Lymph # (Auto) (0.9-3.2) K/mm3 [place] # (Auto) (0.1-0.6) K/mm3 Eos # (Auto) (0-0.3) K/mm3 Baso # (Auto) (0.0-0.1) K/mm3 Abs Immat Gran (auto) (0.00-0.031) K/mm3 Absolute Neuts (auto) (1.3-6.7) K/mm3 Absolute Nucleated RBC (0.0-0.012) K/mm3 Nucleated RBC % (0.0-0.2) % PT (11.1-14.7) Seconds INR APTT (22.3-36.8) Seconds Sodium (137-145) mmol/L Potassium (3.4-5.0) mmol/L Chloride (98-107) mmol/L Carbon Dioxide (22-30) mmol/L Anion Gap (4-12) mmol/L BUN (7-17) mg/dL Creatinine (0.7-1.0) mg/dL Estim Creat Clear Calc Estimated GFR (59 - ) Glucose (65-110) mg/dL Calcium (8.4-10.2) mg/dL Magnesium (1.6-2.3) mg/dL Total Bilirubin (0.2-1.3) mg/dL AST (14-36) U/L ALT (6-35) U/L Alkaline Phosphatase (38-126) U/L Total Protein (6.3-8.2) g/dL Albumin (3.5-5.1) g/dL Lipase (23-300) U/L Beta HCG, Quant mIU/ML Urine Color Dark yellow (Yellow) Urine Appearance Clear (Clear) Urine pH 5.5 (5.0-9.0) Ur Specific [place] 1.037 H (1.001-1.035) Urine Protein Trace (Negative) mg/dL Urine Glucose (UA) Negative (Negative) mg/dL Urine Ketones 1+ H (Negative) mg/dL Ur Blood (Man) Negative (Negative) Urine Nitrate Negative (Negative) Urine Bilirubin Negative (Negative) Urine Urobilinogen 1.0 (<2.0) mg/dL Ur Leukocyte Esterase Negative (Negative) ELLIOTT/UL Leukocyte Esterase Rfl (Negative) ELLIOTT/UL Urine RBC 3-5 H (0-2) /hpf Urine WBC 0-5 (0-3) /hpf Ur Squamous Epith Cells Moderate (Few) /hpf Urine Bacteria 1+ H /hpf Urine Casts 0-2 POC Urine HCG, Qual (Negative) <Ben Anaya MD - Last Filed: 01/17/25 09:52> Imaging Data Radiologist's impression: ITS Impressions Abdomen Ultrasound 01/17/25 08:55 Impression: 1. Solid appearing liver lesion possible hemangioma but incompletely evaluated. Outpatient contrast-enhanced MRI is suggested Obstetrics Ultrasound 01/17/25 08:58 IMPRESSION: 1. Thickened appearance of the endometrial stripe; both ovaries appear normal. 2. No intrauterine gestation identified; correlate with follow-up quantitative hCG levels. Repeat ultrasound examination in 7-10 days or sooner if clinically appropriate, is recommended. <Carlos Gomez DO - Last Filed: 01/17/25 06:37> ITS Impressions Abdomen Ultrasound 01/17/25 08:55 Impression: 1. Solid appearing liver lesion possible hemangioma but incompletely evaluated. Outpatient contrast-enhanced MRI is suggested Obstetrics Ultrasound 01/17/25 08:58 IMPRESSION: 1. Thickened appearance of the endometrial stripe; both ovaries appear normal. 2. No intrauterine gestation identified; correlate with follow-up quantitative hCG levels. Repeat ultrasound examination in 7-10 days or sooner if clinically appropriate, is recommended. <Ben Anaya MD - Last Filed: 01/17/25 09:52> Discharge Plan Discharge Clinical Impression: , location unknown, Asymptomatic bacteriuria during , Hemangioma of liver <Carlos Gomez DO - Last Filed: 01/17/25 06:37> Patient Disposition: Home <Carlos Gomez DO - Last Filed: 01/17/25 06:37> Condition: Stable <Carlos Gomez DO - Last Filed: 01/17/25 06:37> Instructions: (ED) <Carlos Gomez DO - Last Filed: 01/17/25 06:37> Additional Instructions: You need to follow-up with your OB, call their office tomorrow to see if you need to come in earlier. We were unable to get a hold of them today. You should return the ER immediately if your pain increases, you develop any vaginal bleeding, or you have additional concerns. Incidentally was found to have a hemangioma in your liver, it is recommended you follow-up with your primary care doctor to have this evaluated as well. <Carlos Gomez DO - Last Filed: 01/17/25 06:37> Patient Language: Dutch <Carlos Gomez DO - Last Filed: 01/17/25 06:37> Prescriptions: New cephalexin 500 mg capsule 500 mg PO Q12H Qty: 10 0RF acetaminophen 325 mg tablet 325 mg PO TID Qty: 20 0RF No Action ondansetron 4 mg tablet,disintegrating 4 mg PO TID PRN (Reason: nausea and vomiting) Qty: 15 0RF <Carlos Gomez DO - Last Filed: 01/17/25 06:37> Follow-up/Referrals: damari mohamud [Other] - 2 Days UNKNOWN,DOCTOR [Non-Staff] <Carlos Gomez DO - Last Filed: 01/17/25 06:37>
[2025-01-17 05:37] LABS: BEDSIDEPREGUCG Positive (Negative)
[2025-01-17 05:54] LABS: Hematocrit 35.8 % (37.0-47.0); Hemoglobin 12.0 g/dL (12.0-15.0); Immature Granulocyte Percent A 0.3 % (0-0.5); Lymphocytes Absolute Auto 2.19 K/mm3 (0.9-3.2); Mean Corpuscular HGB Conc 33.5 g/dl (32-36); Mean Corpuscular Hemoglobin 29.6 pg (26-34); Mean Corpuscular Volume 88.4 fl (80-100); Nucleated Red Blood Cells Absolute Auto 0.000 K/mm3 (0.0-0.012); Nucleated Red Blood Cells Perc 0.0 % (0.0-0.2); Platelet Count Result 306 k/mm3 (150-375); Red Blood Count 4.05 M/mm3 (4.2-5.4); White Blood Count 6.2 K/mm3 (4.5-10.0)
[2025-01-17 05:59] LABS: Add Urine Microscopic? YES; Appearance Urine Cloudy (Clear); Glucose Urine UA Negative (Negative); Leukocyte Esterase Ur Trace LEU/UL (Negative); Nitrate Urine Negative (Negative); Non Pathogenic Casts 0-2; Specific Grav Ur 1.023 (1.001-1.035)
[2025-01-17 06:02] VITALS: BP 112/85; PULSE 98; RESP 18; TEMP 36.6; O2SAT 100
[2025-01-17 06:09] LABS: INR 1.0; Partial Thromboplastin Time 30.7 Seconds (22.3-36.8); Prothrombin Time 13.3 Seconds (11.1-14.7)
[2025-01-17 06:15] LABS: Alanine Aminotransferase 22 U/L (6-35); Albumin Level 4.3 g/dL (3.5-5.1); Alkaline Phosphatase 80 U/L (38-126); Anion Gap 7 mmol/L (4-12); Aspartate Amino Transferase 46 U/L (14-36); Bilirubin,Total 0.8 mg/dL (0.2-1.3); Blood Urea Nitrogen 9 mg/dL (7-17); Calcium 9.0 mg/dL (8.4-10.2); Carbon Dioxide 21 mmol/L (22-30); Chloride 107 mmol/L (98-107); Estimated Glomerular Filt Rate > 60; Glucose 92 mg/dL (65-110); Lipase 74 U/L (23-300); Magnesium 1.7 mg/dL (1.6-2.3); Potassium 3.4 mmol/L (3.4-5.0); Sodium 135 mmol/L (137-145); Total Protein 8.0 g/dL (6.3-8.2)
[2025-01-17 06:16] VITALS: BP 115/82; PULSE 84; RESP 20; O2SAT 100
[2025-01-17 06:45] LABS: Add Urine Microscopic? YES; Appearance Urine Clear (Clear); Glucose Urine UA Negative (Negative); Leukocyte Esterase Ur Negative LEU/UL (Negative); Nitrate Urine Negative (Negative); Non Pathogenic Casts 0-2; Specific Grav Ur 1.037 (1.001-1.035)
[2025-01-17 06:53] LABS: Beta HCG Quantitative 164.51 mIU/ML
[2025-01-17 07:00] VITALS: BP 115/83; PULSE 83; RESP 18; O2SAT 100
[2025-01-17 09:39] VITALS: BP 107/69; PULSE 74; RESP 16; O2SAT 100
== END 2025-01-17 09:57 | disposition home or self-care (01) ==
PROVIDERS: Student in an Organized Health Care Education/Training Program; Emergency Provider Emergency Medicine
DX: O36.80X0 Pregnancy with inconclusive fetal viability, not applicable or unspecified (principal); O28.8 Other abnormal findings on antenatal screening of mother; Z3A.00 Weeks of gestation of pregnancy not specified; D18.09 Hemangioma of other sites
CPT/HCPCS: 36415; 76705; 76801; 76817; 80053; 81001; 81025; 83690; 83735; 84702; 85025; 85610; 85730; 99284